=== PATIENT | female | born 1990 | race Caucasian/White ===

== ENCOUNTER → 2017-12-21 12:02 | Outpatient (CLI) | payer OTHER, MEDICAID, SELFPAY ==
--- NOTE | 2017-12-21 13:22 | DI.CT.S_ITS ---
PROCEDURE: CT ABDOMEN PELVIS W CON INDICATIONS: NONINFECTIVE GASTROENTERITIS AND COLITIS TECHNIQUE: After the administration of oral and intravenous contrast, 5 mm thick sections acquired from the diaphragms to the symphysis. 5 mm thick coronal and sagittal reformats were performed. For radiation dose reduction, the following was used: automated exposure control, adjustment of mA and/or kV according to patient size. COMPARISON: [facility], CT, ABDOMEN/PELVIS WITH CONTRAST, 06/09/2017, 17:39. FINDINGS: Image quality: Excellent. ABDOMEN: Lung bases: Lung bases are clear. Heart size is normal. Solid organs: Liver is normal in size and enhancement. Gallbladder is within normal limits. Biliary system is non-dilated. Pancreas enhances normally. Spleen is normal in size and enhancement. No adrenal nodules. Kidneys are normal in size and enhancement, without hydronephrosis. Peritoneum and bowel: Stomach, small bowel, and colon loops are normal in caliber and wall thickness. No free fluid or air. Normal appendix. Nodes and vessels: No retroperitoneal or mesenteric adenopathy. Aorta and inferior vena cava are normal in caliber. Miscellaneous: No ventral hernias. PELVIS: Genitourinary: Bladder wall thickness is normal. Miscellaneous: No inguinal hernias or adenopathy. Bones: No suspicious bony lesions. No vertebral body compression fractures. IMPRESSION: 1. No acute process. 2. Normal appendix. Dictated by: Champ Lance M.D. on 12/21/2017 at 13:55 Approved by: Champ Lance M.D. on 12/21/2017 at 14:11
== END ==
PROVIDERS: PCP Family Medicine; Visit Provider Physician Assistant
DX: K52.9 Noninfective gastroenteritis and colitis, unspecified (principal)
CPT/HCPCS: 74177; Q9967

== ENCOUNTER → 2018-02-18 06:05 | Outpatient (CLI) | payer OTHER, MEDICAID, SELFPAY ==
[2018-03-19 08:42] LABS: Bacteria Urine None Seen; RBC Urine None Seen (0-5/HPF); WBC Urine None Seen (0-5/HPF)
[2018-03-19 08:44] LABS: Appearance Urine UA CLEAR; Bilirubin Urine UA NEGATIVE (NEGATIVE); Color Urine UA YELLOW; Glucose Urine UA NEGATIVE (Normal); Ketones Urine UA NEGATIVE (NEGATIVE); Leukocyte Esterase Urine UA NEGATIVE (NEGATIVE); Nitrite Urine UA Negative (Negative); Occult Blood Urine UA NEGATIVE (Negative); Protein Urine UA NEGATIVE (Negative); Urobilinogen Urine UA 0.2 E.U./dL (0.2)
[2018-03-19 09:46] LABS: Culture Indicated Urine Cult Not Indicated; Urine Comments Microscopic Normal
== END ==
PROVIDERS: PCP Family Medicine; Visit Provider Family Medicine
DX: R10.9 Unspecified abdominal pain (principal); R19.7 Diarrhea, unspecified
CPT/HCPCS: 81001; 87015; 87045; 87177; 87427; 87899

== ENCOUNTER → 2018-03-23 08:37 | Outpatient (CLI) | payer OTHER, MEDICAID, SELFPAY ==
[2018-03-23 09:15] LABS: Appearance Urine UA CLEAR; Bilirubin Urine UA NEGATIVE (NEGATIVE); Color Urine UA YELLOW; Glucose Urine UA NEGATIVE (Normal); Ketones Urine UA NEGATIVE (NEGATIVE); Leukocyte Esterase Urine UA TRACE (NEGATIVE); Nitrite Urine UA Negative (Negative); Occult Blood Urine UA NEGATIVE (Negative); Protein Urine UA NEGATIVE (Negative); Urobilinogen Urine UA 0.2 E.U./dL (0.2)
[2018-03-23 09:16] LABS: Add Manual Diff / Slide Review NO; Basophils Percent Auto 0.8 % (0-2); Eosinophils Percent Auto 1.4 % (2-4); Hematocrit 39.2 % (36-46); Hemoglobin 13.7 g/dL (12.0-16.0); Mean Corpuscular HGB Conc 34.8 % (30-36); Mean Corpuscular Hemoglobin 31.4 PG (26-34); Monocytes Percent Auto 6.9 % (3-14); Neutrophils Absolute Auto 5500 /uL (3000-5900); Neutrophils Percent Auto 64.9 % (50-75); Platelet Count 178 X10^3/uL (150-400); Red Blood Cell Count 4.36 X10^6/uL (4.0-5.2); White Blood Cell Count 8.4 X10^3/uL (4.5-11.0)
[2018-03-23 09:20] LABS: Bacteria Urine None Seen; RBC Urine None Seen (0-5/HPF)
[2018-03-23 09:21] LABS: WBC Urine 0-1/HPF (0-5/HPF)
[2018-03-23 09:22] LABS: Culture Indicated Urine Cult Not Indicated
[2018-03-23 09:38] LABS: Alanine Aminotransferase 22 IU/L (9-52); Albumin 4.6 g/dL (3.5-5.0); Albumin Globulin Ratio 1.5 (1.0-2.8); Alkaline Phosphatase 94 U/L (38-126); Amylase 127 U/L (30-110); Aspartate Aminotransferase 27 IU/L (14-36); BUN Creatinine Ratio 18.8 (6-22); Bilirubin Total 0.6 mg/dL (0.2-1.3); Blood Urea Nitrogen 15 mg/dL (7-17); Calcium 9.5 mg/dL (8.4-10.2); Carbon Dioxide 29 mmol/L (22-32); Chloride 103 mmol/L (98-107); Cholesterol 149 mg/dL (140-199); Estimated Glomerular Filt Rate > 60.0 mL/min (>60); Globulin 3.1 g/dL (1.7-4.1); Glucose 90 mg/dL (70-100); HDL Cholesterol 84 mg/dL (40-60); HEMOLYSIS < 15 (0-50); LDL Cholesterol Calculated 54 mg/dL (<100); Lipase 61 U/L (23-300); Sodium 142 mmol/L (137-145); Total Protein 7.7 g/dL (6.3-8.2); Triglycerides 56 mg/dL (35-150)
[2018-03-23 10:25] LABS: Thyroid Stimulating Hormone 1.05 uIU/mL (0.47-4.68)
== END ==
PROVIDERS: PCP Family Medicine; Visit Provider Family Medicine
DX: R10.9 Unspecified abdominal pain (principal); R19.7 Diarrhea, unspecified
CPT/HCPCS: 80053; 80061; 81003; 81015; 82150; 83690; 84443; 85025

== ENCOUNTER → 2018-03-25 16:58 | Outpatient (CLI) | payer OTHER, MEDICAID, SELFPAY | PROVIDERS: PCP Family Medicine; Visit Provider Family Medicine | DX: Z51.81 Encounter for therapeutic drug level monitoring (principal) ==

== ENCOUNTER → 2018-07-06 07:45 | Outpatient (CLI) | payer OTHER, MEDICAID, SELFPAY ==
[2018-07-06 10:38] LABS: Adenovirus F 40/41 Not Detected (Not Detect); Astrovirus Not Detected (Not Detect); Campylobacter Not Detected (Not Detect); Clostridium difficile toxin AB Not Detected (Not Detect); Cryptosporidium Not Detected (Not Detect); Cyclospora cayetanensis Not Detected (Not Detect); Entamoeba histolytica Not Detected (Not Detect); Enteroaggregative E.coli Not Detected (Not Detect); Enteropathogenic E.coli Not Detected (Not Detect); Enterotoxigenic E.coli It/st Not Detected (Not Detect); Giardia lamblia Not Detected (Not Detect); Norovirus GI/GII Not Detected (Not Detect); Plesiomonsa shigelloides Not Detected (Not Detect); Rotavirus A Not Detected (Not Detect); Salmonella Not Detected (Not Detect); Sapovirus Not Detected (Not Detect); Shiga-like toxin-prod E.coli Not Detected (Not Detect); Shigella/Enteroinvasive E.coli Not Detected (Not Detect); Vibrio Not Detected (Not Detect); Vibrio cholerae Not Detected (Not Detect); Yersinia enterocolitica Not Detected (Not Detect)
== END ==
PROVIDERS: Family Provider Family Medicine; PCP Family Medicine; Visit Provider Physician Assistant Medical
DX: R19.4 Change in bowel habit (principal); R10.84 Generalized abdominal pain
CPT/HCPCS: 82710; 87205; 87507

== ENCOUNTER → 2018-10-17 14:16 | Outpatient (CLI) | payer OTHER, MEDICAID, SELFPAY ==
[2018-10-17 14:55] LABS: Influenza A and B by PCR Rapid Negative (Negative)
== END ==
PROVIDERS: Family Provider Family Medicine; PCP Family Medicine; Visit Provider Physician Assistant
DX: R68.89 Other general symptoms and signs (principal)
CPT/HCPCS: 87400

== ENCOUNTER → 2018-10-17 15:25 | Outpatient (CLI) | payer OTHER, MEDICAID, SELFPAY ==
--- NOTE | 2018-10-17 15:26 | DI.RAD.S_ITS ---
PROCEDURE: XR CHEST 2V INDICATIONS: cough TECHNIQUE: 2 views of the chest were acquired. COMPARISON: [facility], , CHEST 2 VIEW, 06/05/2009, 17:38. FINDINGS: Surgical changes and devices: None. Lungs and pleura: Lungs are clear. No pleural effusions or pneumothorax. Mediastinum: Mediastinal contours are normal. Heart size is normal. Bones and chest wall: No suspicious bony abnormalities. Soft tissues appear unremarkable. IMPRESSION: No acute cardiopulmonary pathology. Dictated by: Good Byrd M.D. on 10/17/2018 at 15:38 Approved by: Good Byrd M.D. on 10/17/2018 at 15:38
== END ==
PROVIDERS: PCP Family Medicine; Visit Provider Physician Assistant
DX: R05 Cough (principal)
CPT/HCPCS: 71046; 87400

== ENCOUNTER 2018-11-10 00:59 | Emergency (ER) | payer OTHER, MEDICAID, SELFPAY ==
[2018-11-10 01:12] VITALS: BP 109/84; PULSE 70; TEMP 37.3; O2SAT 98; BMI 22.4
--- NOTE | 2018-11-10 01:13 | ED_ITS ---
HPI - Abdominal Pain General Chief Complaint: Abdominal Pain Stated Complaint: LEFT ABD PAIN TODAY Time Seen by Provider: 11/10/18 01:12 Source: patient Mode of arrival: ambulatory Limitations: no limitations History of Present Illness HPI narrative: Patient is a 28-year-old female with left lower quadrant abdominal pain. She states that is been gradually worsening over the past several hours. She states she is currently have with her menstrual cycle. She states she has had ovarian cysts in the past and this feels very similar to her prior ovarian cyst however ?deeper? she denies any urinary symptoms. Has implanon in place for prevention. Has never had an STD before. States he is not concerned about STDs. Has not tried anything for symptoms prior to arrival patient also states that she has had diarrhea. This does not appear to be new. She states that she has had diarrhea for many years now. Related Data Home Medications Medication Instructions Recorded Confirmed etonogestrel 68 mg subdermal SUBDERMAL each 12/14/17 11/02/18 implant albuterol sulfate HFA 90 2 puff INHALATION Q6H PRN 10/17/18 11/02/18 mcg/actuation aerosol inhaler Previous Rx's Medication Instructions Recorded ondansetron 4 mg disintegrating 4 mg PO Q6-8H PRN #30 tab 10/17/18 tablet methylphenidate 20 mg tablet 20 mg PO BID #60 tab 11/02/18 Allergies Allergy/AdvReac Type Severity Reaction Status Date / Time No Known Drug Allergies Allergy Verified 11/02/18 16:47 Review of Systems Constitutional Denies fever(s) Cardiovascular Denies chest pain and Denies dyspnea Respiratory Denies dyspnea Gastrointestinal Gastrointestinal: Reports abdominal pain, Reports diarrhea, Denies nausea and Denies vomiting Genitourinary Denies dysuria Comments: Vaginal bleeding on menstrual cycle Integumentary/Breasts Denies rash Hematologic/Lymphatic Denies easy bleeding and Denies easy bruising [facility] Medical History ADHD (Chronic 1994) Anxiety (Chronic ~2012) Chronic back pain (Chronic 12/2010) Generalized headaches (Chronic ~2008) Hearing loss (Chronic ~2008) PTSD (post-traumatic stress disorder) (Chronic 2013) Painful menstruation (Chronic 2016) Urinary incontinence (Chronic 10/2013) Elbow pain (Resolved 09/2011) GI bleed (Resolved ~03/2014) GI bleed (Resolved 03/2014) Ovarian cyst (Resolved 2015) Substance abuse (Resolved 2011) Urinary incontinence (Resolved ~10/2013) Social History Smoking Status: Current some day smoker quit status: considering quitting (vaping) alcohol intake: current (Occasional) substance use type: marijuana (last time smoked 2 weeks to help control nausea) Exam Initial Vital Signs Initial Vital Signs: Vital Signs Temperature 99.2 F 11/10/18 01:12 Pulse Rate 70 11/10/18 01:12 Blood Pressure 109/84 11/10/18 01:12 Pulse Oximetry 98 11/10/18 01:12 HENMT Head: normal to inspection and normocephalic Resp Effort & Inspection: normal respiratory effort Auscultation: clear to auscultation bilaterally Cardio Rate: regular rate Rhythm: regular rhythm GI Inspection: non-distended Palpation: soft, No firm and tender (Left lower quadrant/left adnexa) Bimanual Exam- Vagina & Uterus: normal bimanual exam and no cervical motion tenderness Bimanual Exam- Adnexa, other: adnexal tenderness on the left and no masses noted Skin Lesions: no lesions Rashes: no rashes Neuro General: alert, awake and oriented x3 Cognition: normal cognition Speech: speech normal Extrem General: normal to inspection and capillary refill normal Psych Appearance: grossly normal and well kempt Course Orders Ordered: ED Orders 11/10/18 01:20 US pelvic complete Stat Vital Signs - 8 hr 11/10/18 01:12 Temperature 99.2 F Pulse Rate 70 Blood Pressure 109/84 Pulse Oximetry 98 MDM - Abdominal Pain Lab Data Point of care testing: Point of Care Testing Test Results Negative Urine Dip Bedside Urine Glucose Negative Bedside Urine Bilirubin - Negative Bedside Urine Ketone - Negative Urine Specific [place] 1,025 Bedside Urine Occult Blood - Negative Bedside Urine pH 6.0 Bedside Urine Protein - Negative Bedside Urine Urobilinogen +/- 1mg Bedside Urine Nitrite - Negative Bedside Urine Leukocytes - Negative Esterase Imaging Data Pelvic ultrasound: Radiologist's impression: Visualized kidneys appear normal in echotexture and size without hydronephrosis. Uterus is in echotexture and size. Normal endometrial thickness. Multiple follicles within each ovary. Dominant left ovarian follicle measuring 1.3 cm. Bilateral ovaries are normal in size. For t he vas shifting within each ovary with normal waveforms. No pelvic free fluid. MDM Narrative Medical decision making narrative: Patient has left adnexal pain. Has no cervical motion tenderness. Low suspicion for PID. She has no ovarian cyst however does have a left-sided dominant follicle which could be causing her symptoms. She has no urinary tract infection. She is not concerned about STDs. test is negative. Will hold on a CT scan for now. Review of patient's medical history shows she has had painful menses in the past. Discussed use of Tylenol Motrin. She was given return precautions and follow-up instructions. Discharge Plan Departure Patient Disposition: Home Clinical Impression: Pelvic pain Instructions: DI for Pelvic Pain Activity Restrictions/Additional Instructions: I recommend that you take 6-800 mg of Motrin/ibuprofen every 8 hours and or 650 mg of Tylenol/ibuprofen every 4 to 6 hours as needed for pain. Contact her primary care doctor for follow-up. Return to the emergency department for any new symptoms Prescriptions: No Action etonogestrel [Nexplanon] 68 mg implant Subdermal RF: 0 albuterol sulfate 90 mcg/actuation HFA aerosol inhaler 2 puff INHALATION Q6H PRNRF: 0 ondansetron 4 mg tablet,disintegrating 4 mg PO Q6-8H PRN (Reason: nausea and vomiting) Qty: 30 RF: 0 methylphenidate HCl 20 mg tablet 20 mg PO BID Qty: 60 RF: 0 Referrals: Corrine Ku DO [Primary Care Provider] - Stand Alone Forms: Work Release Note
--- NOTE | 2018-11-10 01:20 | DI.US.S_ITS ---
PROCEDURE: US PELVIC COMPLETE INDICATIONS: LEFT ADNEXAL PAIN TECHNIQUE: Real-time scanning was performed of the pelvic organs, with image documentation. Additional endovaginal scanning was necessary due to incomplete visualization of the adnexal and endometrial structures by transabdominal scanning. COMPARISON: None. FINDINGS: Transabdominal scanning: Limited scanning through the kidneys shows no hydronephrosis. No pathologic free abdominal or pelvic fluid. Endovaginal scanning: Uterus: Uterus is normal in size at 6.4 x 3.1 x 4.6 cm. The endometrium measures 3.1 mm in combined thickness. Uterine echotexture is normal. Ovaries: Right ovary measures 3.2 x 2.5 x 1.8 cm. Right ovary is sonographically normal. Left ovary measures 3.0 x 2.5 x 2.5 cm. The left ovary is normal. Small functional follicles are noted in the ovaries bilaterally. Color Doppler evaluation demonstrates normal vascular flow in the ovaries bilaterally. IMPRESSION: 1. Uterus is sonographically normal 2. Adnexa are sonographically normal. Dictated by: Maricel Ulrich MD, PhD on 11/10/2018 at 7:57 Approved by: Maricel Ulrich MD, PhD on 11/10/2018 at 7:59
[2018-11-10] MEDS: KETOROLAC 60 MG/2 ML VIAL 30 MG IM (03:03)
[2018-11-10 03:09] VITALS: BP 106/68; PULSE 73; RESP 15; O2SAT 99
== END 2018-11-10 03:10 | disposition home or self-care (01) ==
PROVIDERS: Emergency Provider Emergency Medicine; PCP Family Medicine
DX: R10.2 Pelvic and perineal pain (principal); R19.7 Diarrhea, unspecified
CPT/HCPCS: 76830; 76856; 81003; 81025; 96372; 99282; 99283; J1885

== ENCOUNTER 2019-01-10 12:57 | Emergency (ER) | payer OTHER, MEDICAID, SELFPAY ==
[2019-01-10 13:00] VITALS: BP 125/71; PULSE 80; RESP 17; TEMP 36.7; O2SAT 98
--- NOTE | 2019-01-10 13:29 | PC.NURSE ---
pt ambulating to bathroom
[2019-01-10 13:46] VITALS: BP 125/71; PULSE 80; RESP 17; TEMP 36.7; O2SAT 98
[2019-01-10] MEDS: SODIUM CHLORIDE 0.9% 1,000 ML 1000 ML IV (13:56)
[2019-01-10] MEDS: ONDANSETRON 4 MG/2 ML INJ IV (13:56)
[2019-01-10 14:02] VITALS: BP 108/61; PULSE 82; RESP 16; O2SAT 97
--- NOTE | 2019-01-10 14:05 | ED.ABDPAIN ---
HPI - Abdominal Pain <[facility] - Last Filed: 01/10/19 18:30> General Chief Complaint: Abdominal Pain Stated Complaint: LOWER ABD PAIN Time Seen by Provider: 01/10/19 13:11 Source: patient Mode of arrival: ambulatory Limitations: no limitations History of Present Illness HPI narrative: The patient is a 28-year-old female current smoker ovarian cysts who presents with a chief complaint of lower abdominal pain. She states her pain has been and the lower left quadrant. She denies any fevers nausea vomiting or diarrhea. Hit in the abdomen by softball about a week ago. She states she had some bruising, but the pain remains. She has been taking Tylenol and Motrin for pain. She denies any possibility of sexually transmitted infections. She denies any dysuria urgency or frequency. She denies any abnormal vaginal discharge or vaginal bleeding. Related Data Home Medications Medication Instructions Recorded Confirmed etonogestrel 68 mg subdermal 1 ea SUBDERMAL .ONCE each 12/14/17 01/10/19 implant albuterol sulfate HFA 90 2 puff INHALATION Q6H PRN 10/17/18 01/10/19 mcg/actuation aerosol inhaler lithium carbonate 300 mg capsule 300 mg PO BEDTIME cap 01/10/19 01/10/19 Allergies Allergy/AdvReac Type Severity Reaction Status Date / Time No Known Drug Allergies Allergy Verified 11/02/18 16:47 Review of Systems <[facility] Last Filed: 01/10/19 18:30> Review of Systems GENERAL: Denies chills, fatigue, malaise, fever, sweats. HEENT: Denies sinus pain, ear pain, sore throat, difficulty swallowing, dizziness. RESPIRATORY: Denies dyspnea, cough, wheezing, hemoptysis, sputum. CARDIOVASCULAR: Denies chest pain, palpitations, orthopnea, edema, GASTROINTESTINAL: See HPI : Denies dysuria, frequency, incontinence, hematuria, urinary retention. MUSCULOSKELETAL: denies weakness, joint pain, or bony pain SKIN: Denies rash, skin lesions, or other NEUROLOGIC: Denies weakness, headache, numbness, change in speech, confusion, seizures, incoordination. PSYCHIATRIC: No concerning psychosocial issues. 12 point review of systems is negative except for those stated above PFSH <[facility] Last Filed: 01/10/19 18:30> Medical History ADHD (Chronic 1994) Anxiety (Chronic ~2012) Chronic back pain (Chronic 12/2010) Generalized headaches (Chronic ~2008) Hearing loss (Chronic ~2008) PTSD (post-traumatic stress disorder) (Chronic 2013) Painful menstruation (Chronic 2016) Urinary incontinence (Chronic 10/2013) Elbow pain (Resolved 09/2011) GI bleed (Resolved ~03/2014) GI bleed (Resolved 03/2014) Ovarian cyst (Resolved 2015) Substance abuse (Resolved 2011) Urinary incontinence (Resolved ~10/2013) Surgical History No history of previous surgery (Resolved) Family History (Updated 02/16/18 @ 13:58 by Clau Haq) Grandfather Cancer Grandfather Diabetes mellitus Father No problems noted. Mother Hypertension Mental health impairment Brother No problems noted. Sister No problems noted. Sister No problems noted. Sister No problems noted. Grandmother Hypertension Grandmother Mental health impairment Social History Smoking Status: Current some day smoker quit status: considering quitting (vaping) alcohol intake: current (Occasional) substance use type: marijuana (last time smoked 2 weeks to help control nausea) Family History Grandfather Cancer Grandfather Diabetes mellitus Father No problems noted. Mother Hypertension Mental health impairment Brother No problems noted. Sister No problems noted. Sister No problems noted. Sister No problems noted. Grandmother Hypertension Grandmother Mental health impairment Social History Smoking Status: Current some day smoker quit status: considering quitting (vaping) alcohol intake: current (Occasional) substance use type: marijuana (last time smoked 2 weeks to help control nausea) Exam <ÁNGELA Schneider - Last Filed: 01/10/19 18:30> Narrative Exam Narrative: GENERAL: This is a well-nourished, well-developed patient, lying on stretcher HEAD: Atraumatic. Normocephalic. No temporal or scalp tenderness. EYES: Pupils equal round and reactive. Extraocular motions intact. No scleral icterus. No injection or drainage. ENT: Nose without bleeding, purulent drainage or septal hematoma. Throat without erythema, tonsillar hypertrophy or exudate. Uvula midline. Airway patent. NECK: Trachea midline. No JVD or lymphadenopathy. Supple, nontender, no meningeal signs. CARDIOVASCULAR: Regular rate and rhythm without murmurs, gallops, or rubs. RESPIRATORY: Clear to auscultation. Breath sounds equal bilaterally. No wheezes, rales, or rhonchi. No cough. No increased respiratory effort. No accessory muscle use. GASTROINTESTINAL: Abdomen soft,, nondistended. No hepato-splenomegaly, or palpable masses. No guarding. Active bowel sounds. General pain to palpation right lower left lower quadrants. EXTREMITIES: No clubbing, cyanosis, or edema. No joint tenderness, effusion, or edema noted. BACK: Nontender without deformity or crepitance. No flank tenderness. NEURO: AOx3. SKIN: No rash or erythema. No erythema or ecchymosis noted on abdomen : No cervical motion tenderness on bimanual exam. 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 Initial Vital Signs Initial Vital Signs: Vital Signs Temperature 98.1 F 01/10/19 13:00 Pulse Rate 80 01/10/19 13:00 Respiratory Rate 17 01/10/19 13:00 Blood Pressure 125/71 01/10/19 13:00 Pulse Oximetry 98 01/10/19 13:00 <Kalpana Hankins MD - Last Filed: 01/10/19 19:11> Initial Vital Signs Initial Vital Signs: Vital Signs Temperature 98.1 F 01/10/19 13:00 Pulse Rate 80 01/10/19 13:00 Respiratory Rate 17 01/10/19 13:00 Blood Pressure 125/71 01/10/19 13:00 Pulse Oximetry 98 01/10/19 13:00 Course <ÁNGELA Schneider - Last Filed: 01/10/19 18:30> Orders Ordered: ED Orders 01/10/19 13:55 Amylase Stat Complete Blood Count AUTO DIFF Stat Comprehensive Metabolic Panel Stat Lipase Stat 01/10/19 14:20 US pelvic complete Stat Discontinued Medications Sodium Chloride (Normal Saline 0.9%) 1,000 mls @ 1,000 mls/hr IV BOLUS ONE Stop: 01/10/19 14:20 Last Infusion: 01/10/19 15:04 Dose: 0 mls/hr Admin: 01/10/19 13:56 Dose: 1,000 mls/hr Morphine Sulfate (Morphine) 4 mg IV NOW ONE Stop: 01/10/19 14:21 Last Admin: 01/10/19 15:04 Dose: 4 mg Ondansetron HCl (Zofran) 4 mg IV NOW ONE Stop: 01/10/19 13:22 Last Admin: 01/10/19 13:56 Dose: 4 mg Vital Signs - 8 hr 01/10/19 13:00 01/10/19 13:46 01/10/19 14:02 Temperature 98.1 F 98.1 F Pulse Rate 80 80 82 Respiratory Rate 17 17 16 Blood Pressure 125/71 125/71 Blood Pressure [Left Arm] Blood Pressure [Right Arm] 108/61 Pulse Oximetry 98 98 97 01/10/19 16:00 01/10/19 17:09 Temperature 98.9 F Pulse Rate 73 76 Respiratory Rate 16 Blood Pressure Blood Pressure [Left Arm] 113/73 Blood Pressure [Right Arm] 110/73 Pulse Oximetry 99 99 <Kalpana Hankins MD - Last Filed: 01/10/19 19:11> Orders Ordered: ED Orders 01/10/19 13:55 Amylase Stat Complete Blood Count AUTO DIFF Stat Comprehensive Metabolic Panel Stat Lipase Stat 01/10/19 14:20 US pelvic complete Stat Discontinued Medications Sodium Chloride (Normal Saline 0.9%) 1,000 mls @ 1,000 mls/hr IV BOLUS ONE Stop: 01/10/19 14:20 Last Infusion: 01/10/19 15:04 Dose: 0 mls/hr Admin: 01/10/19 13:56 Dose: 1,000 mls/hr Morphine Sulfate (Morphine) 4 mg IV NOW ONE Stop: 01/10/19 14:21 Last Admin: 01/10/19 15:04 Dose: 4 mg Ondansetron HCl (Zofran) 4 mg IV NOW ONE Stop: 01/10/19 13:22 Last Admin: 01/10/19 13:56 Dose: 4 mg Vital Signs - 8 hr 01/10/19 13:00 01/10/19 13:46 01/10/19 14:02 Temperature 98.1 F 98.1 F Pulse Rate 80 80 82 Respiratory Rate 17 17 16 Blood Pressure 125/71 125/71 Blood Pressure [Left Arm] Blood Pressure [Right Arm] 108/61 Pulse Oximetry 98 98 97 01/10/19 16:00 01/10/19 17:09 Temperature 98.9 F Pulse Rate 73 76 Respiratory Rate 16 Blood Pressure Blood Pressure [Left Arm] 113/73 Blood Pressure [Right Arm] 110/73 Pulse Oximetry 99 99 MDM - Abdominal Pain <LUCHO Schneider- - Last Filed: 01/10/19 18:30> Lab Data Result diagrams: 01/10/19 13:55 01/10/19 13:55 Lab Results 01/10/19 01/10/19 Range/Units 13:55 13:55 WBC 8.3 (4.5-11.0) X10^3/uL RBC 4.45 (4.0-5.2) X10^6/uL Hgb 13.7 (12.0-16.0) g/dL Hct 41.1 (36-46) % MCV 92.3 (80-100) fL MCH 30.8 (26-34) PG MCHC 33.4 (30-36) % RDW 12.9 (11.6-14.8) % Plt Count 179 (150-400) X10^3/uL Neut % (Auto) 66.2 (50-75) % Lymph % (Auto) 24.6 L (25-40) % Steele % (Auto) 6.0 (3-14) % Eos % (Auto) 2.3 (2-4) % Baso % (Auto) 0.9 (0-2) % Neut # (Auto) 5500 (9312-1230) /uL Lymph # (Auto) 2000 (1323-8953) /uL Steele # (Auto) 500 (0-900) /uL Eos # (Auto) 200 (0-450) /uL Baso # (Auto) 100 (0-100) /uL Sodium 139 (137-145) mmol/L Potassium 3.9 (3.4-5.1) mmol/L Chloride 105 (98-107) mmol/L Carbon Dioxide 26 (22-32) mmol/L BUN 10 (7-17) mg/dL Creatinine 0.80 (0.52-1.04) mg/dL Estimated GFR > 60.0 (>60) mL/min BUN/Creatinine Ratio 12.5 (6-22) Glucose 81 (70-100) mg/dL Calcium 9.2 (8.4-10.2) mg/dL Total Bilirubin 0.4 (0.2-1.3) mg/dL AST 19 (14-36) IU/L ALT 6 L (9-52) IU/L Alkaline Phosphatase 89 (38-126) U/L Total Protein 7.2 (6.3-8.2) g/dL Albumin 4.3 (3.5-5.0) g/dL Globulin 2.9 (1.7-4.1) g/dL Albumin/Globulin Ratio 1.5 (1.0-2.8) Amylase 144 H (30-110) U/L Lipase 84 (23-300) U/L Point of care testing: Point of Care Testing Test Results Negative Urine Dip Bedside Urine Glucose Negative Bedside Urine Bilirubin - Negative Bedside Urine Ketone - Negative Urine Specific Rotan 1.010 Bedside Urine Occult Blood - Negative Bedside Urine pH 7.0 Bedside Urine Protein - Negative Bedside Urine Urobilinogen - Negative Bedside Urine Nitrite - Negative Bedside Urine Leukocytes - Negative Esterase Imaging Data pelvic us: Radiologist's impression: [address] [address] Ultrasound Report Signed Patient: Nae Jha [facility]#: [id number] : 1990Acct:[id number] Age/Sex: 28 / FDate of Service: 01/10/19 Loc: ED Accession Number: [id number] Procedure: US pelvic complete Ordering Provider: Eladia Rodriguez PROCEDURE: US PELVIC COMPLETE INDICATIONS: PELVIC PAIN TECHNIQUE: Real-time scanning was performed of the pelvic organs, with image documentation. Additional endovaginal scanning was necessary due to incomplete visualization of the adnexal and endometrial structures by transabdominal scanning. COMPARISON: [facility], PELVIC COMPLETE, 11/10/2018, 1:45. FINDINGS: Transabdominal scanning: Limited scanning through the kidneys shows no hydronephrosis. No pathologic free abdominal or pelvic fluid. Endovaginal scanning: Uterus: Uterus is normal in size at 7.8 x 4.0 x 3.4 cm. The endometrium measures 5 mm in combined thickness. No focal myometrial lesions are identified. There is no fluid seen within the endometrium. Ovaries: The right ovary measures 5.6 x 5.3 x 3.7 cm and is noted to be moderately enlarged related to a simple appearing right ovarian cyst that measures up to approximately 4.5 cm. No internal septations are appreciated. The left ovary is normal in size without cystic or solid mass and measures 2.7 x 2.6 x 1.9 cm. IMPRESSION: 1. Moderate-sized right ovarian cyst. Followup imaging in 2-3 months is recommended. 2. Unremarkable uterus and left ovary. Dictated by: Shawn Fink M.D. on 01/10/2019 at 15:12 Approved by: Shawn Fink M.D. on 01/10/2019 at 15:14 [facility] Narrative Medical decision making narrative: The patient is a 28-year-old female who presents with chief complaint of lower abdominal pain. She was hit in the stomach by a softball, is concerned about bleeding. However he hemoglobin and hematocrit are within normal limits and stable from her previous drop. I expect if she had any bleeding, this would have dropped in the week since the softball incident. She also does not have an acute abdomen on exam. She has no cervical motion tenderness, ruling out pelvic inflammatory disease. She is noted to have a right ovarian cyst. I discussed at length follow up with primary care provider. Given that she does not have an acute abdomen and does not have an elevated white blood cell count, we elected to defer a CT scan at this point time. I discussed at length monitoring for worsening, inability keep down fluids, fever with abdominal pain or other acute concerns. Discussed coming back to the ER for any acute concerns. Patient has no questions or concerns upon discharge. <Kalpana Hankins MD - Last Filed: 01/10/19 19:11> Lab Data Lab Results 01/10/19 01/10/19 Range/Units 13:55 13:55 WBC 8.3 (4.5-11.0) X10^3/uL RBC 4.45 (4.0-5.2) X10^6/uL Hgb 13.7 (12.0-16.0) g/dL Hct 41.1 (36-46) % MCV 92.3 (80-100) fL MCH 30.8 (26-34) PG MCHC 33.4 (30-36) % RDW 12.9 (11.6-14.8) % Plt Count 179 (150-400) X10^3/uL Neut % (Auto) 66.2 (50-75) % Lymph % (Auto) 24.6 L (25-40) % Steele % (Auto) 6.0 (3-14) % Eos % (Auto) 2.3 (2-4) % Baso % (Auto) 0.9 (0-2) % Neut # (Auto) 5500 (2717-1139) /uL Lymph # (Auto) 2000 (1101-8592) /uL Steele # (Auto) 500 (0-900) /uL Eos # (Auto) 200 (0-450) /uL Baso # (Auto) 100 (0-100) /uL Sodium 139 (137-145) mmol/L Potassium 3.9 (3.4-5.1) mmol/L Chloride 105 (98-107) mmol/L Carbon Dioxide 26 (22-32) mmol/L BUN 10 (7-17) mg/dL Creatinine 0.80 (0.52-1.04) mg/dL Estimated GFR > 60.0 (>60) mL/min BUN/Creatinine Ratio 12.5 (6-22) Glucose 81 (70-100) mg/dL Calcium 9.2 (8.4-10.2) mg/dL Total Bilirubin 0.4 (0.2-1.3) mg/dL AST 19 (14-36) IU/L ALT 6 L (9-52) IU/L Alkaline Phosphatase 89 (38-126) U/L Total Protein 7.2 (6.3-8.2) g/dL Albumin 4.3 (3.5-5.0) g/dL Globulin 2.9 (1.7-4.1) g/dL Albumin/Globulin Ratio 1.5 (1.0-2.8) Amylase 144 H (30-110) U/L Lipase 84 (23-300) U/L Point of care testing: Point of Care Testing Test Results Negative Urine Dip Bedside Urine Glucose Negative Bedside Urine Bilirubin - Negative Bedside Urine Ketone - Negative Urine Specific Rotan 1.010 Bedside Urine Occult Blood - Negative Bedside Urine pH 7.0 Bedside Urine Protein - Negative Bedside Urine Urobilinogen - Negative Bedside Urine Nitrite - Negative Bedside Urine Leukocytes - Negative Esterase Discharge Plan Departure Patient Disposition: Home Clinical Impression: Right ovarian cyst Abdominal pain Qualifiers: Abdominal location: generalized Qualified Code(s): R10.84 - Generalized abdominal pain Discharge Date/Time: 01/10/19 17:22 Interventions: ED Discharge Assessment Last Done: 01/10/19 17:13 Instructions: DI for Ovarian Cyst, DI for Abdominal Pain-Adult Activity Restrictions/Additional Instructions: Your lab work came back well today. Your ultrasound shows a right-sided ovarian cyst. Please follow up with primary care provider soon as possible. Please come back to the emergency department for any acute concerns such as inability keep down food or fluids, fever with abdominal pain etc. Prescriptions: No Action etonogestrel [Nexplanon] 68 mg implant 1 ea Subdermal .ONCE RF: 0 albuterol sulfate 90 mcg/actuation HFA aerosol inhaler 2 puff INHALATION Q6H PRN (Reason: Shortness Of Breath) RF: 0 lithium carbonate 300 mg capsule 300 mg PO BEDTIME RF: 0 Referrals: Corrine Ku DO [Primary Care Provider] - Stand Alone Forms: School Release Note, Work Release Note
--- NOTE | 2019-01-10 14:09 | ED_ITS ---
HPI - Abdominal Pain <LADARIUS Schneider - Last Filed: 01/10/19 18:30> General Chief Complaint: Abdominal Pain Stated Complaint: LOWER ABD PAIN Time Seen by Provider: 01/10/19 13:11 Source: patient Mode of arrival: ambulatory Limitations: no limitations History of Present Illness HPI narrative: The patient is a 28-year-old female current smoker ovarian cysts who presents with a chief complaint of lower abdominal pain. She states her pain has been and the lower left quadrant. She denies any fevers nausea vomiting or diarrhea. Hit in the abdomen by softball about a week ago. She s tates she had some bruising, but the pain remains. She has been taking Tylenol and Motrin for pain. She denies any possibility of sexually transmitted infections. She denies any dysuria urgency or frequency. She denies any abnormal vaginal discharge or vaginal bleeding. Related Data Home Medications Medication Instructions Recorded Confirmed etonogestrel 68 mg subdermal 1 ea SUBDERMAL .ONCE each 12/14/17 01/10/19 implant albuterol sulfate HFA 90 2 puff INHALATION Q6H PRN 10/17/18 01/10/19 mcg/actuation aerosol inhaler lithium carbonate 300 mg capsule 300 mg PO BEDTIME cap 01/10/19 01/10/19 Allergies Allergy/AdvReac Type Severity Reaction Status Date / Time No Known Drug Allergies Allergy Verified 11/02/18 16:47 Review of Systems <LADARIUS Schneider - Last Filed: 01/10/19 18:30> Review of Systems GENERAL: Denies chills, fatigue, malaise, fever, sweats. HEENT: Denies sinus pain, ear pain, sore throat, difficulty swallowing, dizziness. RESPIRATORY: Denies dyspnea, cough, wheezing, hemoptysis, sputum. CARDIOVASCULAR: Denies chest pain, palpitations, orthopnea, edema, GASTROINTESTINAL: See HPI : Denies dysuria, frequency, incontinence, hematuria, urinary retention. MUSCULOSKELETAL: denies weakness, joint pain, or bony pain SKIN: Denies rash, skin lesions, or other NEUROLOGIC: Denies weakness, headache, numbness, change in speech, confusion, seizures, incoordination. PSYCHIATRIC: No concerning psychosocial issues. 12 point review of systems is negative except for those stated above PFSH <LADARIUS Schneider - Last Filed: 01/10/19 18:30> Medical History ADHD (Chronic 1994) Anxiety (Chronic ~2012) Chronic back pain (Chronic 12/2010) Generalized headaches (Chronic ~2008) Hearing loss (Chronic ~2008) PTSD (post-traumatic stress disorder) (Chronic 2013) Painful menstruation (Chronic 2016) Urinary incontinence (Chronic 10/2013) Elbow pain (Resolved 09/2011) GI bleed (Resolved ~03/2014) GI bleed (Resolved 03/2014) Ovarian cyst (Resolved 2015) Substance abuse (Resolved 2011) Urinary incontinence (Resolved ~10/2013) Surgical History No history of previous surgery (Resolved) Family History (Updated 02/16/18 @ 13:58 by Clau Haq) Grandfather Cancer Grandfather Diabetes mellitus Father No problems noted. Mother Hypertension Mental health impairment Brother No problems noted. Sister No problems noted. Sister No problems noted. Sister No problems noted. Grandmother Hypertension Grandmother Mental health impairment Social History Smoking Status: Current some day smoker quit status: considering quitting (vaping) alcohol intake: current (Occasional) substance use type: marijuana (last time smoked 2 weeks to help control nausea) Family History Grandfather Cancer Grandfather Diabetes mellitus Father No problems noted. Mother Hypertension Mental health impairment Brother No problems noted. Sister No problems noted. Sister No problems noted. Sister No problems noted. Grandmother Hypertension Grandmother Mental health impairment Social History Smoking Status: Current some day smoker quit status: considering quitting (vaping) alcohol intake: current (Occasional) substance use type: marijuana (last time smoked 2 weeks to help control nausea) Exam <ÁNGELA Schneider - Last Filed: 01/10/19 18:30> Narrative Exam Narrative: GENERAL: This is a well-nourished, well-developed patient, lying on stretcher HEAD: Atraumatic. Normocephalic. No temporal or scalp tenderness. EYES: Pupils equal round and reactive. Extraocular motions intact. No scleral icterus. No injection or drainage. ENT: Nose without bleeding, purulent drainage or septal hematoma. Throat without erythema, tonsillar hypertrophy or exudate. Uvula midline. Airway patent. NECK: Trachea midline. No JVD or lymphadenopathy. Supple, nontender, no meningeal signs. CARDIOVASCULAR: Regular rate and rhythm without murmurs, gallops, or rubs. RESPIRATORY: Clear to auscultation. Breath sounds equal bilaterally. No wheezes, rales, or rhonchi. No cough. No increased respiratory effort. No accessory muscle use. GASTROINTESTINAL: Abdomen soft,, nondistended. No hepato-splenomegaly, or palpable masses. No guarding. Active bowel sounds. General pain to palpation right lower left lower quadrants. EXTREMITIES: No clubbing, cyanosis, or edema. No joint tenderness, effusion, or edema noted. BACK: Nontender without deformity or crepitance. No flank tenderness. NEURO: AOx3. SKIN: No rash or erythema. No erythema or ecchymosis noted on abdomen : No cervical motion tenderness on bimanual exam. Done with Deepti Moon RN as vp security Initial Vital Signs Initial Vital Signs: Vital Signs Temperature 98.1 F 01/10/19 13:00 Pulse Rate 80 01/10/19 13:00 Respiratory Rate 17 01/10/19 13:00 Blood Pressure 125/71 01/10/19 13:00 Pulse Oximetry 98 01/10/19 13:00 <Kalpana Hankins MD - Last Filed: 01/10/19 19:11> Initial Vital Signs Initial Vital Signs: Vital Signs Temperature 98.1 F 01/10/19 13:00 Pulse Rate 80 01/10/19 13:00 Respiratory Rate 17 01/10/19 13:00 Blood Pressure 125/71 01/10/19 13:00 Pulse Oximetry 98 01/10/19 13:00 Course <ÁNGELA Schneider - Last Filed: 01/10/19 18:30> Orders Ordered: ED Orders 01/10/19 13:55 Amylase Stat Complete Blood Count AUTO DIFF Stat Comprehensive Metabolic Panel Stat Lipase Stat 01/10/19 14:20 US pelvic complete Stat Discontinued Medications Sodium Chloride (Normal Saline 0.9%) 1,000 mls @ 1,000 mls/hr IV BOLUS ONE Stop: 01/10/19 14:20 Last Infusion: 01/10/19 15:04 Dose: 0 mls/hr Admin: 01/10/19 13:56 Dose: 1,000 mls/hr Morphine Sulfate (Morphine) 4 mg IV NOW ONE Stop: 01/10/19 14:21 Last Admin: 01/10/19 15:04 Dose: 4 mg Ondansetron HCl (Zofran) 4 mg IV NOW ONE Stop: 01/10/19 13:22 Last Admin: 01/10/19 13:56 Dose: 4 mg Vital Signs - 8 hr 01/10/19 13:00 01/10/19 13:46 01/10/19 14:02 Temperature 98.1 F 98.1 F Pulse Rate 80 80 82 Respiratory Rate 17 17 16 Blood Pressure 125/71 125/71 Blood Pressure [Left Arm] Blood Pressure [Right Arm] 108/61 Pulse Oximetry 98 98 97 01/10/19 16:00 01/10/19 17:09 Temperature 98.9 F Pulse Rate 73 76 Respiratory Rate 16 Blood Pressure Blood Pressure [Left Arm] 113/73 Blood Pressure [Right Arm] 110/73 Pulse Oximetry 99 99 <Kalpana Hankins MD - Last Filed: 01/10/19 19:11> Orders Ordered: ED Orders 01/10/19 13:55 Amylase Stat Complete Blood Count AUTO DIFF Stat Comprehensive Metabolic Panel Stat Lipase Stat 01/10/19 14:20 US pelvic complete Stat Discontinued Medications Sodium Chloride (Normal Saline 0.9%) 1,000 mls @ 1,000 mls/hr IV BOLUS ONE Stop: 01/10/19 14:20 Last Infusion: 01/10/19 15:04 Dose: 0 mls/hr Admin: 01/10/19 13:56 Dose: 1,000 mls/hr Morphine Sulfate (Morphine) 4 mg IV NOW ONE Stop: 01/10/19 14:21 Last Admin: 01/10/19 15:04 Dose: 4 mg Ondansetron HCl (Zofran) 4 mg IV NOW ONE Stop: 01/10/19 13:22 Last Admin: 01/10/19 13:56 Dose: 4 mg Vital Signs - 8 hr 01/10/19 13:00 01/10/19 13:46 01/10/19 14:02 Temperature 98.1 F 98.1 F Pulse Rate 80 80 82 Respiratory Rate 17 17 16 Blood Pressure 125/71 125/71 Blood Pressure [Left Arm] Blood Pressure [Right Arm] 108/61 Pulse Oximetry 98 98 97 01/10/19 16:00 01/10/19 17:09 Temperature 98.9 F Pulse Rate 73 76 Respiratory Rate 16 Blood Pressure Blood Pressure [Left Arm] 113/73 Blood Pressure [Right Arm] 110/73 Pulse Oximetry 99 99 MDM - Abdominal Pain <Eladia Rodriguez, FORTUNE TELLER- - Last Filed: 01/10/19 18:30> Lab Data Result diagrams: 01/10/19 13:55 01/10/19 13:55 Lab Results 01/10/19 01/10/19 Range/Units 13:55 13:55 WBC 8.3 (4.5-11.0) X10^3/uL RBC 4.45 (4.0-5.2) X10^6/uL Hgb 13.7 (12.0-16.0) g/dL Hct 41.1 (36-46) % MCV 92.3 (80-100) fL MCH 30.8 (26-34) PG MCHC 33.4 (30-36) % RDW 12.9 (11.6-14.8) % Plt Count 179 (150-400) X10^3/uL Neut % (Auto) 66.2 (50-75) % Lymph % (Auto) 24.6 L (25-40) % Claiborne % (Auto) 6.0 (3-14) % Eos % (Auto) 2.3 (2-4) % Baso % (Auto) 0.9 (0-2) % Neut # (Auto) 5500 (7830-6767) /uL Lymph # (Auto) 2000 (8216-1161) /uL Claiborne # (Auto) 500 (0-900) /uL Eos # (Auto) 200 (0-450) /uL Baso # (Auto) 100 (0-100) /uL Sodium 139 (137-145) mmol/L Potassium 3.9 (3.4-5.1) mmol/L Chloride 105 (98-107) mmol/L Carbon Dioxide 26 (22-32) mmol/L BUN 10 (7-17) mg/dL Creatinine 0.80 (0.52-1.04) mg/dL Estimated GFR > 60.0 (>60) mL/min BUN/Creatinine Ratio 12.5 (6-22) Glucose 81 (70-100) mg/dL Calcium 9.2 (8.4-10.2) mg/dL Total Bilirubin 0.4 (0.2-1.3) mg/dL AST 19 (14-36) IU/L ALT 6 L (9-52) IU/L Alkaline Phosphatase 89 (38-126) U/L Total Protein 7.2 (6.3-8.2) g/dL Albumin 4.3 (3.5-5.0) g/dL Globulin 2.9 (1.7-4.1) g/dL Albumin/Globulin Ratio 1.5 (1.0-2.8) Amylase 144 H (30-110) U/L Lipase 84 (23-300) U/L Point of care testing: Point of Care Testing Test Results Negative Urine Dip Bedside Urine Glucose Negative Bedside Urine Bilirubin - Negative Bedside Urine Ketone - Negative Urine Specific Tuthill 1.010 Bedside Urine Occult Blood - Negative Bedside Urine pH 7.0 Bedside Urine Protein - Negative Bedside Urine Urobilinogen - Negative Bedside Urine Nitrite - Negative Bedside Urine Leukocytes - Negative Esterase Imaging Data pelvic us: Radiologist's impression: [address] [address] Ultrasound Report Signed Patient: Nae Jha DMR#: [id number] : 1990Acct:[id number] Age/Sex: 28 / FDate of Service: 01/10/19 Loc: ED Accession Number: [id number] Procedure: US pelvic complete Ordering Provider: Eladia Rodriguez FORTUNE TELLER- PROCEDURE: US PELVIC COMPLETE INDICATIONS: PELVIC PAIN TECHNIQUE: Real-time scanning was performed of the pelvic organs, with image documentation. Additional endovaginal scanning was necessary due to incomplete visualization of the adnexal and endometrial structures by transabdominal scanning. COMPARISON: [facility], PELVIC COMPLETE, 11/10/2018, 1:45. FINDINGS: Transabdominal scanning: Limited scanning through the kidneys shows no hydronep hrosis. No pathologic free abdominal or pelvic fluid. Endovaginal scanning: Uterus: Uterus is normal in size at 7.8 x 4.0 x 3.4 cm. The endometrium measures 5 mm in combined thickness. No focal myometrial lesions are identified. There is no fluid seen within the endometrium. Ovaries: The right ovary measures 5.6 x 5.3 x 3.7 cm and is noted to be moderately enlarged related to a simple appearing right ovarian cyst that measures up to approximately 4.5 cm. No internal septations are appreciated. The left ovary is normal in size without cystic or solid mass and measures 2.7 x 2.6 x 1.9 cm. IMPRESSION: 1. Moderate-sized right ovarian cyst. Followup imaging in 2-3 months is recommended. 2. Unremarkable uterus and left ovary. Dictated by: Shawn Fink M.D. on 01/10/2019 at 15:12 Approved by: Shawn Fink M.D. on 01/10/2019 at 15:14 MDM Narrative Medical decision making narrative: The patient is a 28-year-old female who presents with chief complaint of lower abdominal pain. She was hit in the stomach by a softball, is concerned about bleeding. However he hemoglobin and hematocrit are within normal limits and stable from her previous drop. I expect if she had any bleeding, this would have dropped in the week since the softball incident. She also does not have an acute abdomen on exam. She has no cervical motion tenderness, ruling out pelvic inflammatory disease. She is noted to have a right ovarian cyst. I discussed at length follow up with primary care provid er. Given that she does not have an acute abdomen and does not have an elevated white blood cell count, we elected to defer a CT scan at this point time. I discussed at length monitoring for worsening, inability keep down fluids, fever with abdominal pain or other acute concerns. Discussed coming back to the ER for any acute concerns. Patient has no questions or concerns upon discharge. <Kalpana Hankins MD - Last Filed: 01/10/19 19:11> Lab Data Lab Results 01/10/19 01/10/19 Range/Units 13:55 13:55 WBC 8.3 (4.5-11.0) X10^3/uL RBC 4.45 (4.0-5.2) X10^6/uL Hgb 13.7 (12.0-16.0) g/dL Hct 41.1 (36-46) % MCV 92.3 (80-100) fL MCH 30.8 (26-34) PG MCHC 33.4 (30-36) % RDW 12.9 (11.6-14.8) % Plt Count 179 (150-400) X10^3/uL Neut % (Auto) 66.2 (50-75) % Lymph % (Auto) 24.6 L (25-40) % Claiborne % (Auto) 6.0 (3-14) % Eos % (Auto) 2.3 (2-4) % Baso % (Auto) 0.9 (0-2) % Neut # (Auto) 5500 (0993-2225) /uL Lymph # (Auto) 2000 (7511-9890) /uL Claiborne # (Auto) 500 (0-900) /uL Eos # (Auto) 200 (0-450) /uL Baso # (Auto) 100 (0-100) /uL Sodium 139 (137-145) mmol/L Potassium 3.9 (3.4-5.1) mmol/L Chloride 105 (98-107) mmol/L Carbon Dioxide 26 (22-32) mmol/L BUN 10 (7-17) mg/dL Creatinine 0.80 (0.52-1.04) mg/dL Estimated GFR > 60.0 (>60) mL/min BUN/Creatinine Ratio 12.5 (6-22) Glucose 81 (70-100) mg/dL Calcium 9.2 (8.4-10.2) mg/dL Total Bilirubin 0.4 (0.2-1.3) mg/dL AST 19 (14-36) IU/L ALT 6 L (9-52) IU/L Alkaline Phosphatase 89 (38-126) U/L Total Protein 7.2 (6.3-8.2) g/dL Albumin 4.3 (3.5-5.0) g/dL Globulin 2.9 (1.7-4.1) g/dL Albumin/Globulin Ratio 1.5 (1.0-2.8) Amylase 144 H (30-110) U/L Lipase 84 (23-300) U/L Point of care testing: Point of Care Testing Test Results Negative Urine Dip Bedside Urine Glucose Negative Bedside Urine Bilirubin - Negative Bedside Urine Ketone - Negative Urine Specific Tuthill 1.010 Bedside Urine Occult Blood - Negative Bedside Urine pH 7.0 Bedside Urine Protein - Negative Bedside Urine Urobilinogen - Negative Bedside Urine Nitrite - Negative Bedside Urine Leukocytes - Negative Esterase Discharge Plan Departure Patient Disposition: Home Clinical Impression: Right ovarian cyst Abdominal pain Qualifiers: Abdominal location: generalized Qualified Code(s): R10.84 - Generalized abdominal pain Discharge Date/Time: 01/10/19 17:22 Interventions: ED Discharge Assessment Last Done: 01/10/19 17:13 Instructions: DI for Ovarian Cyst, DI for Abdominal Pain-Adult Activity Restrictions/Additional Instructions: Your lab work came back well today. Your ultrasound shows a right-sided ovarian cyst. Please follow up with primary care provider soon as possible. Please come back to the emergency department for any acute concerns such as inability keep down food or fluids, fever with abdominal pain etc. Prescriptions: No Action etonogestrel [Nexplanon] 68 mg implant 1 ea Subdermal .ONCE RF: 0 albuterol sulfate 90 mcg/actuation HFA aerosol inhaler 2 puff INHALATION Q6H PRN (Reason: Shortness Of Breath) RF: 0 lithium carbonate 300 mg capsule 300 mg PO BEDTIME RF: 0 Referrals: Corrine Ku DO [Primary Care Provider] - Stand Alone Forms: School Release Note, Work Release Note
[2019-01-10 14:11] LABS: Add Manual Diff / Slide Review NO; Basophils Absolute Auto 100 /uL (0-100); Basophils Percent Auto 0.9 % (0-2); Eosinophils Absolute Auto 200 /uL (0-450); Eosinophils Percent Auto 2.3 % (2-4); Hematocrit 41.1 % (36-46); Hemoglobin 13.7 g/dL (12.0-16.0); Lymphocytes Absolute Auto 2000 /uL (1100-4500); Lymphocytes Percent Auto 24.6 % (25-40); Mean Corpuscular HGB Conc 33.4 % (30-36); Mean Corpuscular Hemoglobin 30.8 PG (26-34); Mean Corpuscular Volume 92.3 fL (80-100); Monocytes Absolute Auto 500 /uL (0-900); Neutrophils Absolute Auto 5500 /uL (1500-7000); Neutrophils Percent Auto 66.2 % (50-75); Platelet Count 179 X10^3/uL (150-400); Red Blood Cell Count 4.45 X10^6/uL (4.0-5.2); Red Cell Distribution Width 12.9 % (11.6-14.8); White Blood Cell Count 8.3 X10^3/uL (4.5-11.0)
--- NOTE | 2019-01-10 14:20 | DI.US.S_ITS ---
PROCEDURE: US PELVIC COMPLETE INDICATIONS: PELVIC PAIN TECHNIQUE: Real-time scanning was performed of the pelvic organs, with image documentation. Additional endovaginal scanning was necessary due to incomplete visualization of the adnexal and endometrial structures by transabdominal scanning. COMPARISON: [facility], PELVIC COMPLETE, 11/10/2018, 1:45. FINDINGS: Transabdominal scanning: Limited scanning through the kidneys shows no hydronephrosis. No pathologic free abdominal or pelvic fluid. Endovaginal scanning: Uterus: Uterus is normal in size at 7.8 x 4.0 x 3.4 cm. The endometrium measures 5 mm in combined thickness. No focal myometrial lesions are identified. There is no fluid seen within the endometrium. Ovaries: The right ovary measures 5.6 x 5.3 x 3.7 cm and is noted to be moderately enlarged related to a simple appearing right ovarian cyst that measures up to approximately 4.5 cm. No internal septations are appreciated. The left ovary is normal in size without cystic or solid mass and measures 2.7 x 2.6 x 1.9 cm. IMPRESSION: 1. Moderate-sized right ovarian cyst. Followup imaging in 2-3 months is recommended. 2. Unremarkable uterus and left ovary. Dictated by: Shawn Fink M.D. on 01/10/2019 at 15:12 Approved by: Shawn Fink M.D. on 01/10/2019 at 15:14
[2019-01-10 14:31] LABS: Alanine Aminotransferase 6 IU/L (9-52); Albumin 4.3 g/dL (3.5-5.0); Albumin Globulin Ratio 1.5 (1.0-2.8); Alkaline Phosphatase 89 U/L (38-126); Amylase 144 U/L (30-110); Aspartate Aminotransferase 19 IU/L (14-36); BUN Creatinine Ratio 12.5 (6-22); Bilirubin Total 0.4 mg/dL (0.2-1.3); Blood Urea Nitrogen 10 mg/dL (7-17); Calcium 9.2 mg/dL (8.4-10.2); Carbon Dioxide 26 mmol/L (22-32); Chloride 105 mmol/L (98-107); Estimated Glomerular Filt Rate > 60.0 mL/min (>60); Globulin 2.9 g/dL (1.7-4.1); Glucose 81 mg/dL (70-100); HEMOLYSIS 23 (0-50); Lipase 84 U/L (23-300); Potassium 3.9 mmol/L (3.4-5.1); Sodium 139 mmol/L (137-145); Total Protein 7.2 g/dL (6.3-8.2)
[2019-01-10] MEDS: MORPHINE 4 MG/ML INJ IV (15:04)
--- NOTE | 2019-01-10 15:27 | PC.NURSE ---
PIV placed, blood specimens labelled after 2 identifier check with patient, conveyed to lab via tube system
[2019-01-10 16:00] VITALS: BP 110/73; PULSE 73; O2SAT 99
[2019-01-10 17:09] VITALS: BP 113/73; PULSE 76; RESP 16; TEMP 37.2; O2SAT 99
== END 2019-01-10 17:22 | disposition home or self-care (01) ==
PROVIDERS: Emergency Provider Nurse Practitioner Family; PCP Family Medicine
DX: N83.201 Unspecified ovarian cyst, right side (principal); R10.84 Generalized abdominal pain
CPT/HCPCS: 36591; 76830; 76856; 80053; 81003; 81025; 82150; 83690; 85025; 96361; 96374; 96375; 99283; 99284; J2270; J2405

== ENCOUNTER 2019-03-10 18:30 | Emergency (ER) | payer OTHER, MEDICAID, SELFPAY ==
[2019-03-10 18:46] VITALS: BP 147/92; PULSE 130; RESP 20; TEMP 36.6; O2SAT 99; BMI 25.9
[2019-03-10 21:42] VITALS: BP 116/72; PULSE 108; RESP 20; O2SAT 100
--- NOTE | 2019-03-10 22:02 | ED.HA ---
HPI - Headache General Chief Complaint: Headache Stated Complaint: CAN'T STOP THROWING UP HEADACHE Time Seen by Provider: 03/10/19 22:01 Source: patient Mode of arrival: ambulatory Limitations: no limitations History of Present Illness HPI Narrative: This is a 28-year-old female comes emergency department complaint headache, she also complains of pain on the left side of her neck her common left shoulder and left knee. Patient states that she has had some chronic pain with her leg. She states that she had had migraines or headaches when she was 18 but this 1 seems a little bit worse. Patient has not had fevers, no vision changes, she has been having nausea and vomiting. She denies any chest pain, shortness of breath, or other GI issues. She denies any abdominal pain. She denies any weakness or numbness in her extremities. Patient states she does take lithium and medication for ADHD. She states that she was dropped off by significant other. Related Data Home Medications Medication Instructions Recorded Confirmed etonogestrel 68 mg subdermal 1 ea SUBDERMAL .ONCE each 12/14/17 01/10/19 implant albuterol sulfate 90 mcg/actuation 2 puff INHALATION Q6H PRN 10/17/18 01/10/19 aerosol inhaler lithium carbonate 300 mg capsule 300 mg PO BEDTIME cap 01/10/19 01/10/19 Allergies Allergy/AdvReac Type Severity Reaction Status Date / Time No Known Drug Allergies Allergy Verified 03/10/19 18:49 PFSH Medical History ADHD (Chronic 1994) Anxiety (Chronic ~2012) Chronic back pain (Chronic 12/2010) Elbow pain (Resolved 09/2011) Generalized headaches (Chronic ~2008) GI bleed (Resolved ~03/2014) GI bleed (Resolved 03/2014) Hearing loss (Chronic ~2008) Ovarian cyst (Resolved 2015) Painful menstruation (Chronic 2016) PTSD (post-traumatic stress disorder) (Chronic 2013) Substance abuse (Resolved 2011) Urinary incontinence (Resolved ~10/2013) Urinary incontinence (Chronic 10/2013) Surgical History No history of previous surgery (Resolved) Family History Grandfather Cancer Grandfather Diabetes mellitus Father No problems noted. Mother Hypertension Mental health impairment Brother No problems noted. Sister No problems noted. Sister No problems noted. Sister No problems noted. Grandmother Hypertension Grandmother Mental health impairment Social History Smoking Status: Current some day smoker quit status: considering quitting (vaping) alcohol intake: current (Occasional) substance use type: marijuana (last time smoked 2 weeks to help control nausea) Family History Grandfather Cancer Grandfather Diabetes mellitus Father No problems noted. Mother Hypertension Mental health impairment Brother No problems noted. Sister No problems noted. Sister No problems noted. Sister No problems noted. Grandmother Hypertension Grandmother Mental health impairment Social History Smoking Status: Current some day smoker quit status: considering quitting (vaping) alcohol intake: current (Occasional) substance use type: marijuana (last time smoked 2 weeks to help control nausea) Exam Narrative Exam Narrative: GEN: well nourished, well appearing female, alert and oriented x 3, patient appears to be in mild distress. HEENT: Atraumatic, pupils are equal round reactive to light, extraocular movements are intact, nares are clear, TMs are clear with no fluid. Throat is clear without any exudates, erythema, tonsillar enlargement or uvular deviation, no facial droop. No meningeal signs. HEART: Regular rate and rhythm without murmur, clicks, rubs. No carotid bruits, pulses are equal in upper and lower extremities LUNGS:Lungs clear to auscultation, no wheezes, rales, crackles, chest moves symmetrically ABD:bowel sounds normal, soft, non-tender, no guarding, rebound, rigidity, no masses noted, no hepatosplenomegaly :No CVA tenderness MSCL: Non-tender, no muscle atrophy, muscles strength 5/5 upper and lower extremities, full range of motion, gait not tested NEURO:CN 2-12 intact, sensation normal, reflexes 2/4 upper and lower extremities. finger nose finger test normal SKIN: No rash. Initial Vital Signs Initial Vital Signs: Vital Signs Temperature 97.9 F 03/10/19 18:46 Pulse Rate 130 H 03/10/19 18:46 Respiratory Rate 20 03/10/19 18:46 Blood Pressure 147/92 H 03/10/19 18:46 Pulse Oximetry 99 03/10/19 18:46 Scores GCS Cascade coma scale eye opening: Spontaneous Cascade coma scale verbal response: Orientated Cascade coma scale motor response: Obey commands Giuliana coma scale total score: 15 Course Orders Ordered: ED Orders 03/10/19 22:08 CT head/brain wo con Stat Discontinued Medications Sodium Chloride (Normal Saline 0.9%) 1,000 mls @ 1,000 mls/hr IV BOLUS ONE Stop: 03/10/19 23:07 Last Infusion: 03/10/19 22:54 Dose: 0 mls/hr Documented by: Admin: 03/10/19 22:27 Dose: 1,000 mls/hr Documented by: JEYSON Metoclopramide HCl (Reglan) 10 mg IV NOW ONE Stop: 03/10/19 22:09 Last Admin: 03/10/19 22:27 Dose: 10 mg Documented by: JEYSON Vital Signs Vital signs: Vital Signs - 8 hr 03/10/19 18:46 03/10/19 21:42 Temperature 97.9 F Pulse Rate 130 H 108 H Respiratory Rate 20 20 Blood Pressure 147/92 H Blood Pressure [Left Arm] 116/72 Pulse Oximetry 99 100 MDM - Headache Lab Data Labs: Point of Care Testing Test Results Negative Urine Dip Bedside Urine Glucose Negative Bedside Urine Bilirubin - Negative Bedside Urine Ketone - Negative Urine Specific Faber 1.020 Bedside Urine Occult Blood +++ Bedside Urine pH 5.0 Bedside Urine Protein +/- 15 Bedside Urine Urobilinogen - Negative Bedside Urine Nitrite - Negative Bedside Urine Leukocytes - Negative Esterase Imaging Data CT scan - head: Radiologist's impression: No acute intracranial findings. [facility] Narrative Medical decision making narrative: Patient states that a family member just got in a motor vehicle accident and she has to leave immediately. Initial head CT read by myself is negative but there is not a formal read. Patient's vital signs have been improving. I let the patient know that I would contact her if there were any changes to her head CT that I did not appreciate. Patient has a neurologically intact and able to ambulate other apartment without issue. She did not wait for any discharge instructions. Discharge Plan Departure Patient Disposition: Home Clinical Impression: Headache Discharge Date/Time: 03/10/19 22:55 Instructions: DI for Headache Activity Restrictions/Additional Instructions: Follow-up with yourr primary care provider in the next 2-3 days for recheck. Call for an appointment. Continue home medications as prescribed. Return to the emergency department for fevers got her 0.4 F, rapidly worsening symptoms, passing out, new vision changes, new weakness, difficulty speech, inability move her arms or legs or other new or concerning symptoms. Prescriptions: No Action etonogestrel [Nexplanon] 68 mg implant 1 ea Subdermal .ONCE RF: 0 albuterol sulfate 90 mcg/actuation HFA aerosol inhaler 2 puff INHALATION Q6H PRN (Reason: Shortness Of Breath) RF: 0 lithium carbonate 300 mg capsule 300 mg PO BEDTIME RF: 0 Referrals: Corrine Ku DO [Primary Care Provider] -
--- NOTE | 2019-03-10 22:08 | DI.CT.S_ITS ---
PROCEDURE: CT HEAD/BRAIN WO CON INDICATIONS: headache, remote history of migraines TECHNIQUE: Noncontrast 4.5 mm thick angled axial sections acquired from the foramen magnum to the vertex, with coronal and sagittal reformats. For radiation dose reduction, the following was used: automated exposure control, adjustment of mA and/or kV according to patient size. COMPARISON: None. FINDINGS: Image quality: Diagnostic, with note made of motion artifact. CSF spaces: Basal cisterns are patent. No extra-axial fluid collections. Ventricles are normal in size and shape. Brain: No midline shift. No intracranial masses or hemorrhage. Man-white matter interface is normal. Skull and face: Calvarium and visualized facial bones are intact, without suspicious lesions. Sinuses: Visualized sinuses and mastoids are clear. IMPRESSION: Normal intracranial study. No acute intracranial hemorrhage. No masses or mass effect. Stable from prior. Note: No significant discrepancy from the preliminary report. Dictated by: Kevin García M.D. on 03/11/2019 at 8:27 Approved by: Kevin García M.D. on 03/11/2019 at 8:28
[2019-03-10] MEDS: SODIUM CHLORIDE 0.9% 1,000 ML 1000 ML IV (22:27)
[2019-03-10] MEDS: METOCLOPRAMIDE 10 MG/2 ML INJ IV (22:27)
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
== END 2019-03-10 22:55 | disposition home or self-care (01) ==
PROVIDERS: Emergency Provider Emergency Medicine; PCP Family Medicine
DX: R51 Headache (principal)
CPT/HCPCS: 36591; 70450; 81003; 81025; 96374; 99283; 99284; J2765

== ENCOUNTER 2019-10-30 19:49 | Emergency (ER) | payer OTHER, MEDICAID, SELFPAY ==
[2019-10-30 20:04] VITALS: BP 121/73; PULSE 128; RESP 18; TEMP 36.6; O2SAT 97; BMI 27.3
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
[2019-10-30] MEDS: LIDO 1%/SOD BICARB 8.4% (10ML) 10 ML SYRINGE INJ (21:22)
[2019-10-30] MEDS: ONDANSETRON 4 MG ODT PREPACK 1 BOTTLE MISC (21:23)
[2019-10-30] MEDS: cephALEXin 250 MG PREPACK 1 BOTTLE MISC (21:25)
[2019-10-30] MEDS: TET,DIPH,PERTUSS(ACELL),VAC/PF 0.5 ML SYRINGE IM (21:26)
[2019-10-30 21:37] VITALS: BP 122/81
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
== END 2019-10-30 21:40 | disposition home or self-care (01) ==
PROVIDERS: Emergency Provider Emergency Medicine
DX: S06.0X0A Concussion without loss of consciousness, initial encounter (principal); S02.2XXA Fracture of nasal bones, initial encounter for closed fracture; S51.019A Laceration without foreign body of unspecified elbow, initial encounter; V19.40XA Pedal cycle driver injured in collision with unspecified motor vehicles in traffic accident, initial encounter; Z23 Encounter for immunization
CPT/HCPCS: 12001; 70450; 70486; 71045; 72125; 81003; 81025; 90471; 99284; 90715

== ENCOUNTER → 2019-11-01 12:12 | Outpatient (CLI) | payer OTHER, MEDICAID, SELFPAY ==
--- NOTE | 2019-11-01 12:15 | DI.RAD.S_ITS ---
PROCEDURE: XR ELBOW LT MIN 3V INDICATIONS: left arm pain TECHNIQUE: 3 views of the elbow were acquired. COMPARISON: None. FINDINGS: Bones: No fractures or dislocations. No suspicious bony lesions. Soft tissues: No elbow joint effusion. No suspicious soft tissue calcifications. IMPRESSION: Left elbow without acute radiographic abnormalities. If there are persistent symptoms or clinical suspicion for pathology, then repeat radiographs or advanced imaging (CT, MRI or bone scan) should be considered for further evaluation. Dictated by: Vivek Villar M.D. on 11/01/2019 at 13:00 Approved by: Vivek Villar M.D. on 11/01/2019 at 13:00
--- NOTE | 2019-11-01 12:15 | DI.RAD.S_ITS ---
PROCEDURE: XR WRIST LT MIN 3V INDICATIONS: left arm pain TECHNIQUE: 3 views of the wrist were acquired. COMPARISON: [facility], , WRIST MINIMUM 3 VIEWS RIGHT, 12/30/2011, 0:49. FINDINGS: Bones: No fractures or dislocations. No suspicious bony lesions. Soft tissues: No suspicious soft tissue calcifications. IMPRESSION: Left wrist without acute radiographic abnormalities. If there are persistent symptoms or clinical suspicion for pathology, then repeat radiographs or advanced imaging (CT, MRI or bone scan) should be considered for further evaluation. Dictated by: Vivek Villar M.D. on 11/01/2019 at 12:59 Approved by: Vivek Villar M.D. on 11/01/2019 at 13:00
== END ==
PROVIDERS: PCP Family Medicine; Referring Provider Family Medicine; Visit Provider Family Medicine
DX: M79.602 Pain in left arm (principal)
CPT/HCPCS: 73080; 73110

== ENCOUNTER 2019-11-15 13:37 | Emergency (ER) | payer OTHER, MEDICAID, SELFPAY ==
[2019-11-15 13:40] VITALS: BP 138/93; PULSE 106; RESP 13; TEMP 37.1; O2SAT 98; BMI 25.6
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
[2019-11-15] MEDS: diphenhydrAMINE 50 MG/ML VIAL 25 MG IV (14:28)
[2019-11-15] MEDS: KETOROLAC 60 MG/2 ML VIAL 15 MG IV (14:29)
[2019-11-15] MEDS: METOCLOPRAMIDE 10 MG/2 ML INJ IV (14:29)
[2019-11-15] MEDS: LORazepam 2 MG/ML INJ 0.5 MG IV (14:29)
[2019-11-15] MEDS: SODIUM CHLORIDE 0.9% 1,000 ML 1000 ML IV (14:30)
[2019-11-15 14:47] LABS: Add Manual Diff / Slide Review NO; Basophils Absolute Auto 100 /uL (0-100); Basophils Percent Auto 0.9 % (0-2); Eosinophils Absolute Auto 100 /uL (0-450); Eosinophils Percent Auto 1.2 % (2-4); Hematocrit 42.3 % (36-46); Hemoglobin 14.6 g/dL (12.0-16.0); Lymphocytes Absolute Auto 1900 /uL (1100-4500); Lymphocytes Percent Auto 24.1 % (25-40); Mean Corpuscular HGB Conc 34.5 % (30-36); Mean Corpuscular Hemoglobin 31.3 PG (26-34); Mean Corpuscular Volume 90.8 fL (80-100); Monocytes Absolute Auto 500 /uL (0-900); Monocytes Percent Auto 5.9 % (3-14); Neutrophils Absolute Auto 5300 /uL (1500-7000); Neutrophils Percent Auto 67.9 % (50-75); Platelet Count 191 X10^3/uL (150-400); Red Blood Cell Count 4.66 X10^6/uL (4.0-5.2); Red Cell Distribution Width 12.6 % (11.6-14.8); White Blood Cell Count 7.9 X10^3/uL (4.5-11.0)
[2019-11-15 15:01] LABS: Alanine Aminotransferase 15 IU/L (<35); Albumin Globulin Ratio 1.4 (1.0-2.8); Alkaline Phosphatase 90 U/L (38-126); Aspartate Aminotransferase 34 IU/L (14-36); BUN Creatinine Ratio 21.2 (6-22); Bilirubin Total 1.3 mg/dL (0.2-1.3); Blood Urea Nitrogen 14 mg/dL (7-17); Calcium 9.4 mg/dL (8.4-10.2); Carbon Dioxide 23 mmol/L (22-32); Chloride 109 mmol/L (98-107); Estimated Glomerular Filt Rate > 60.0 mL/min (>60); Globulin 3.5 g/dL (1.7-4.1); Glucose 91 mg/dL (70-100); Sodium 138 mmol/L (137-145); Total Protein 8.5 g/dL (6.3-8.2)
[2019-11-15 15:09] LABS: HEMOLYSIS 145 (0-50); Potassium 4.9 mmol/L (3.4-5.1)
[2019-11-15 15:38] VITALS: BP 113/60; PULSE 70; RESP 16; O2SAT 98
[2019-11-15 16:53] VITALS: BP 98/62; PULSE 72; RESP 15; O2SAT 98
== END 2019-11-15 17:08 | disposition home or self-care (01) ==
PROVIDERS: Emergency Provider Emergency Medicine; PCP Family Medicine
DX: R07.81 Pleurodynia (principal)
CPT/HCPCS: 36415; 80053; 85025; 96361; 96374; 96375; 99284; J1200; J1885; J2060; J2765

== ENCOUNTER → 2020-06-27 09:52 | Outpatient (CLI) | payer OTHER, MEDICAID, SELFPAY ==
--- NOTE | 2020-06-27 09:54 | DI.RAD.S_ITS ---
PROCEDURE: XR CHEST 2V INDICATIONS: Left lung/chest pain TECHNIQUE: 2 views of the chest were acquired. COMPARISON: [facility], CR, XR CHEST 2V, 10/17/2018, 15:24. FINDINGS: Surgical changes and devices: None. Lungs and pleura: Lungs are clear. No pleural effusions or pneumothorax. Mediastinum: Mediastinal contours are normal. Heart size is normal. Bones and chest wall: No suspicious bony abnormalities. Soft tissues appear unremarkable. IMPRESSION: No acute cardiopulmonary disease. Dictated by: Jareth Bledsoe M.D. on 06/27/2020 at 10:54 Approved by: Jareth Bledsoe M.D. on 06/27/2020 at 10:55
== END ==
PROVIDERS: PCP Family Medicine; Referring Provider Family Medicine; Visit Provider Family Medicine
DX: R07.89 Other chest pain (principal)
CPT/HCPCS: 71046

== ENCOUNTER 2020-06-30 12:52 | Emergency (ER) | payer OTHER, MEDICAID, SELFPAY ==
[2020-06-30] VITALS (15 sets, daily range): BP systolic 85–113; BP diastolic 51–69; PULSE 68–92; RESP 14–30; TEMP 36.7; O2SAT 96–99; BMI 26.6
--- NOTE | 2020-06-30 13:43 | ED.NAVMDI ---
HPI - Nausea/Vomiting/Diarrhea <LATASHA Vargas - Last Filed: 06/30/20 20:42> General Chief complaint: Nausea/Vomiting/Diarrhea Stated complaint: Head hurts/vomitting Time Seen by Provider: 06/30/20 13:32 Source: patient Mode of arrival: Ambulatory Limitations: no limitations History of Present Illness HPI Narrative: This is a 29-year-old female, current vapor, who has past medical history significant for migraine headache and concussion, PTSD, anxiety, opioids use disorder presents to ED with chief complain of woke up with nausea and vomiting this morning with headache. Patient reports her headache is located in frontal head. Patient reports she had vomited about 7+ times with clear liquid and bile. Patient also reports productive clear mucousy cough for last 6 months and had recently chest x-ray done that was ordered by PCP. Patient denies known seasonal allergies but reports postnasal drips. Patient is concerned she was told several years ago had a nodule in her lung. Patient reports occasional short of breath but not at this time. She denies chest pain, abdominal pain, or back pain. Patient reports headache worsens with breathing in cold air and has photophobia. Patient also reports pain slightly increased with flexing her neck. Denies unusual rashes, fever, chills. Patient denies known exposure to Covid illness. Patient tried ibuprofen this morning but vomited up shortly after. LMP, she is currently on and denies chances for . Related Data Previous Rx's Medication Instructions Recorded acetaminophen 500 mg capsule 1,000 mg PO QID PRN #90 cap 11/01/19 ibuprofen 800 mg tablet 800 mg PO TID PRN #60 tab 11/01/19 norethindrone acetate 1.5 1 tab PO DAILY #63 tab 03/25/20 mg-ethinyl estradiol 30 mcg tablet quetiapine 50 mg tablet,extended See Rx Instructions .ROUTE 05/25/20 release 24 hr .COMPLEX #30 tab Allergies Allergy/AdvReac Type Severity Reaction Status Date / Time metoclopramide [From Reglan] AdvReac Intermediate restlessnes Verified 06/30/20 15:16 s Review of Systems <LATASHA Vargas - Last Filed: 06/30/20 20:42> Review of Systems Narrative: General: Denies fever, chills, fatigue, malaise, sweats. HEENT: See HPI Respiratory: Denies dyspnea, (+) chronic cough, wheezing, hemoptysis, sputum. Cardiovascular: Denies chest pain, palpitations, orthopnea, edema. Gastrointestinal: See HPI : Denies dysuria, frequency, incontinence, hematuria, urinary retention. Musculoskeletal: Denies weakness, joint pain or bony pain. Skin: Denies rash, skin lesions, or other. Neurologic: Denies weakness, (+) headache, numbness, change in speech, confusion, seizures, incoordination. Psychiatric: No concerning psychosocial issues. 12-point review of systems is negative except for those stated above. Patient History <LATASHA Vargas - Last Filed: 06/30/20 20:42> Medical History ADHD (1994) Anxiety (~2012) Bipolar disorder Chronic back pain (12/2010) Elbow pain (09/2011) Generalized headaches (~2008) GI bleed (03/2014) Hearing loss (~2008) Opioid use disorder Otitis externa Otitis externa Ovarian cyst (2015) Painful menstruation (2016) Pleurisy PTSD (post-traumatic stress disorder) (2013) Ulnar neuritis Urinary incontinence (10/2013) Surgical History No history of previous surgery Family History Grandfather Cancer Grandfather Diabetes mellitus Father No problems noted. Mother Hypertension Mental health impairment Brother No problems noted. Sister No problems noted. Sister No problems noted. Sister No problems noted. Grandmother Hypertension Grandmother Mental health impairment Social History Smoking Status: Current some day smoker quit status: considering quitting alcohol intake: current substance use type: marijuana Smoking Status: Current some day smoker tobacco type: vaping alcohol intake frequency: holidays/special occasions only Substance Use Type: marijuana and other Exam <LATASHA Vargas - Last Filed: 06/30/20 20:42> Narrative Exam Narrative: GEN: Alert, oriented x 3, well appearing and nourished, and moderate distress from headache and nausea, she is resting in dark room. Head: Normal cephalic, atraumatic. No scalp or temporal tenderness, palpable mass or rash. EYES: Pupils are equal, round, and reactive to light and accommodation. Extraocular muscles are intact bilaterally. There is no subconjunctival hemorrhage, exudate and sclera non-icteric. ENT: Hearing grossly intact. Nose without bleeding, purulent discharge or deviation. Facial sinuses nontender to palpate. Mucous membrane moist, no mucosal lesion. Throat without erythema, tonsillar hypertrophy or exudate. Uvula in midline, airway patent. Neck: Trachea in midline. No JVD, non-tender without lymphadenopathy. No masses or thyroid megaly. Supple, non-tender and no meningeal signs. CARDIAC: Normal regular rate and rhythm without murmurs, gallops, or rubs. No chest wall tenderness. No peripheral edema, cyanosis or pallor. Capillary refill is less than 2 seconds. RESPIRATORY: Lungs are clear to auscultate bilaterally. No cough, wheezes, rales, or rhonchi. No stridor, respiratory distress, increase work of breathing, or accessary muscle used. ABD: Abdomen soft, nontender and non-distended. No guarding or rebound tenderness to palpate. Bowel sounds are normal in all 4 quadrants. There is no palpable masses or organomegaly. EXT: Full painless ROM of all extremities with no loss of sensation, strength, effusion or edema. SKIN: Warm, dry, normal color for patient. No erythema, lesions or rash over visible areas. BACK: Nontender without deformity or crepitance. No flank tenderness. NEUROLOGICAL: Alert and oriented to place, time and person. Sensation and motor function intact bilaterally. No facial droops, dysphasia. PSYCHIATRIC: Good judgement and reason, without hallucinations, abnormal affect or abnormal behaviors during the examination. Patient is not suicidal. Initial Vital Signs Initial Vital Signs: Vital Signs Temperature 98.0 F 06/30/20 13:29 Pulse Rate 92 H 06/30/20 13:29 Respiratory Rate 14 06/30/20 13:29 Blood Pressure 108/69 06/30/20 13:29 Pulse Oximetry 97 06/30/20 13:29 <Concepcion Sequeira, - Last Filed: 07/02/20 06:58> Initial Vital Signs Initial Vital Signs: Vital Signs Temperature 98.0 F 06/30/20 13:29 Pulse Rate 92 H 06/30/20 13:29 Respiratory Rate 14 06/30/20 13:29 Blood Pressure 108/69 06/30/20 13:29 Pulse Oximetry 97 06/30/20 13:29 Scores <[facility] Last Filed: 06/30/20 20:42> GCS [place] coma scale eye opening: Spontaneous [place] coma scale verbal response: Orientated [place] coma scale motor response: Obey commands [place] coma scale total score: 15 qSOFA Altered Mental Status (GCS <15): No Respiratory rate greater than/equal to 22: No Systolic blood pressure less than or equal to 100: No qSOFA Total: 0 0-1 Not High Risk 1-3 High risk Course <[facility] Last Filed: 06/30/20 20:42> Orders Ordered: Discontinued Medications Diphenhydramine HCl (Diphenhydramine 50 Mg/Ml Vial) 25 mg IV NOW ONE Stop: 06/30/20 14:12 Last Admin: 06/30/20 14:24 Dose: 25 mg Documented by: PITA Diphenhydramine HCl (Diphenhydramine 50 Mg/Ml Vial) 25 mg IV NOW ONE Stop: 06/30/20 15:00 Last Admin: 06/30/20 15:03 Dose: 25 mg Documented by: PITA Sodium Chloride (Normal Saline 0.9%) 1,000 mls @ 1,000 mls/hr IV BOLUS ONE Stop: 06/30/20 15:10 Last Infusion: 06/30/20 16:15 Dose: 0 mls/hr Documented by: Admin: 06/30/20 14:31 Dose: 1,000 mls/hr Documented by: PITA Sodium Chloride (Normal Saline 0.9%) 500 mls @ 1,000 mls/hr IV BOLUS ONE Stop: 06/30/20 16:51 Last Infusion: 06/30/20 17:22 Dose: 0 mls/hr Documented by: Admin: 06/30/20 16:46 Dose: 1,000 mls/hr Documented by: KADE Ketorolac Tromethamine (Ketorolac 60 Mg/2 Ml Vial) 15 mg IV NOW ONE Stop: 06/30/20 14:12 Last Admin: 06/30/20 14:24 Dose: 15 mg Documented by: PITA Lorazepam (Lorazepam 2 Mg/Ml Inj) 0.5 mg IV NOW ONE Stop: 06/30/20 15:15 Last Admin: 06/30/20 15:40 Dose: 0.5 mg Documented by: KADE Metoclopramide HCl (Metoclopramide 10 Mg/2 Ml Inj) 10 mg IV NOW ONE Stop: 06/30/20 14:12 Last Admin: 06/30/20 14:24 Dose: 10 mg Documented by: PITA Ondansetron HCl (Ondansetron 4 Mg Odt) 4 mg SL NOW ONE Stop: 06/30/20 13:43 Last Admin: 06/30/20 13:51 Dose: 4 mg Documented by: PITA Reevaluation(s) Reevaluation #1: Patient reports Zofran sublingual medication causing more nausea at this time from the taste. IV access successfully established after several attempts. Medications to treat nausea and headache ordered with IV fluid to hydrate patient. Waiting for lab tests. Time: 14:15 Reevaluation #2: Primary RN informed patient is having possible reaction to Reglan. She is re-evaluated by myself and appears to be having an akathesia with jitteriness and mild restlessness. Additional Benadryl 25mg IV ordered. The patient is able to keep eyes open in lighted room and appears to be last photophobia experienced. Time: 15:00 Reevaluation #3: Patient reports restlessness symptoms improved a little but has not resolved. Headaches has improved as well. Will medicate patient with small dose of Ativan. Time: 15:15 Additional Reevaluation(s): 1620-patient arouse from sleep by verbal command and reports headache and restless symptoms much improved. She is feeling thirsty. Ice chips provided for p.o. challenge. Noted slight hypotensive as 90/51 with HR in 85, additional 500 ml of NS bolus ordered. If patient is able to tolerate ice chips, vital signs improve endplate without difficulty will work on dispo to home. 1720-patient reports headache and feeling restlessness resolved at this time. She was able to tolerate ice chips without vomiting. Vital signs improved. Vital Signs Vital signs: Vital Signs - 8 hr 06/30/20 13:29 06/30/20 15:04 06/30/20 15:05 Temperature 98.0 F Pulse Rate 92 H 91 H 90 Respiratory Rate 14 30 H 20 Blood Pressure 108/69 101/59 L Pulse Oximetry 97 96 06/30/20 15:15 06/30/20 15:30 06/30/20 15:45 Temperature Pulse Rate 85 77 76 Respiratory Rate 22 22 Blood Pressure 95/60 85/51 L 100/60 Pulse Oximetry 97 96 97 06/30/20 16:00 06/30/20 16:15 06/30/20 16:21 Temperature Pulse Rate 68 79 80 Respiratory Rate 21 21 25 H Blood Pressure 92/54 L 91/52 L 90/51 L Pulse Oximetry 97 98 97 06/30/20 16:30 06/30/20 16:45 06/30/20 17:00 Temperature Pulse Rate 69 72 72 Respiratory Rate 20 22 20 Blood Pressure 97/58 L 91/54 L 102/66 Pulse Oximetry 96 96 98 06/30/20 17:15 06/30/20 17:30 06/30/20 17:44 Temperature Pulse Rate 73 89 92 H Respiratory Rate 20 16 Blood Pressure 104/65 113/63 Pulse Oximetry 97 97 99 <Concepcion Sequeira, DO - Last Filed: 07/02/20 06:58> Orders Ordered: Discontinued Medications Diphenhydramine HCl (Diphenhydramine 50 Mg/Ml Vial) 25 mg IV NOW ONE Stop: 06/30/20 14:12 Last Admin: 06/30/20 14:24 Dose: 25 mg Documented by: PITA Diphenhydramine HCl (Diphenhydramine 50 Mg/Ml Vial) 25 mg IV NOW ONE Stop: 06/30/20 15:00 Last Admin: 06/30/20 15:03 Dose: 25 mg Documented by: PITA Sodium Chloride (Normal Saline 0.9%) 1,000 mls @ 1,000 mls/hr IV BOLUS ONE Stop: 06/30/20 15:10 Last Infusion: 06/30/20 16:15 Dose: 0 mls/hr Documented by: Admin: 06/30/20 14:31 Dose: 1,000 mls/hr Documented by: PITA Sodium Chloride (Normal Saline 0.9%) 500 mls @ 1,000 mls/hr IV BOLUS ONE Stop: 06/30/20 16:51 Last Infusion: 06/30/20 17:22 Dose: 0 mls/hr Documented by: Admin: 06/30/20 16:46 Dose: 1,000 mls/hr Documented by: KADE Ketorolac Tromethamine (Ketorolac 60 Mg/2 Ml Vial) 15 mg IV NOW ONE Stop: 06/30/20 14:12 Last Admin: 06/30/20 14:24 Dose: 15 mg Documented by: PITA Lorazepam (Lorazepam 2 Mg/Ml Inj) 0.5 mg IV NOW ONE Stop: 06/30/20 15:15 Last Admin: 06/30/20 15:40 Dose: 0.5 mg Documented by: KADE Metoclopramide HCl (Metoclopramide 10 Mg/2 Ml Inj) 10 mg IV NOW ONE Stop: 06/30/20 14:12 Last Admin: 06/30/20 14:24 Dose: 10 mg Documented by: PITA Ondansetron HCl (Ondansetron 4 Mg Odt) 4 mg SL NOW ONE Stop: 06/30/20 13:43 Last Admin: 06/30/20 13:51 Dose: 4 mg Documented by: PITA Vital Signs Vital signs: Vital Signs - 8 hr 06/30/20 13:29 06/30/20 15:04 06/30/20 15:05 Temperature 98.0 F Pulse Rate 92 H 91 H 90 Respiratory Rate 14 30 H 20 Blood Pressure 108/69 101/59 L Pulse Oximetry 97 96 06/30/20 15:15 06/30/20 15:30 06/30/20 15:45 Temperature Pulse Rate 85 77 76 Respiratory Rate 22 22 Blood Pressure 95/60 85/51 L 100/60 Pulse Oximetry 97 96 97 06/30/20 16:00 06/30/20 16:15 06/30/20 16:21 Temperature Pulse Rate 68 79 80 Respiratory Rate 21 21 25 H Blood Pressure 92/54 L 91/52 L 90/51 L Pulse Oximetry 97 98 97 06/30/20 16:30 06/30/20 16:45 06/30/20 17:00 Temperature Pulse Rate 69 72 72 Respiratory Rate 20 22 20 Blood Pressure 97/58 L 91/54 L 102/66 Pulse Oximetry 96 96 98 06/30/20 17:15 06/30/20 17:30 06/30/20 17:44 Temperature Pulse Rate 73 89 92 H Respiratory Rate 20 16 Blood Pressure 104/65 113/63 Pulse Oximetry 97 97 99 MDM - Nausea/Vomiting/Diarrhea <Ronal Balaji-RUSSELL LuiP - Last Filed: 06/30/20 20:42> Differential Diagnosis Differential diagnosis: Likely dehydration and other (Gastritis, migraine headache, viral illness, meningitis) Medical Records Attestation: I reviewed the patient's medical records. Lab Data Attestation: I reviewed the patient's lab results. Result diagrams: 06/30/20 13:55 06/30/20 13:55 Labs: Lab Results 06/30/20 06/30/20 06/30/20 Range/Units 13:25 13:25 13:55 WBC 5.1 (4.5-11.0) X10^3/uL RBC 4.52 (4.0-5.2) X10^6/uL Hgb 14.0 (12.0-16.0) g/dL Hct 40.7 (36-46) % MCV 90.0 (80-100) fL MCH 30.9 (26-34) PG MCHC 34.3 (30-36) % RDW 12.7 (11.6-14.8) % Plt Count 188 (150-400) X10^3/uL Neut % (Auto) 59.2 (50-75) % Lymph % (Auto) 33.7 (25-40) % [place] % (Auto) 4.5 (3-14) % Eos % (Auto) 2.0 (2-4) % Baso % (Auto) 0.6 (0-2) % Neut # (Auto) 3000 (4857-0597) /uL Lymph # (Auto) 1700 (5507-8936) /uL [place] # (Auto) 200 (0-900) /uL Eos # (Auto) 100 (0-450) /uL Baso # (Auto) 0 (0-100) /uL PT (10.1-12.7) SECONDS INR (0.9-1.3) APTT (26.4-36.2) SECONDS Sodium (137-145) mmol/L Potassium (3.4-5.1) mmol/L Chloride (98-107) mmol/L Carbon Dioxide (22-32) mmol/L BUN (7-17) mg/dL Creatinine (0.52-1.04) mg/dL Estimated GFR (>60) mL/min BUN/Creatinine Ratio (6-22) Glucose (70-100) mg/dL Calcium (8.4-10.2) mg/dL Total Bilirubin (0.2-1.3) mg/dL AST (14-36) IU/L ALT (<35) IU/L Alkaline Phosphatase (38-126) U/L Total Protein (6.3-8.2) g/dL Albumin (3.5-5.0) g/dL Globulin (1.7-4.1) g/dL Albumin/Globulin Ratio (1.0-2.8) Lipase (23-300) U/L COVID-19 PCR Negative (Negative) Influenza A (RT-PCR) Flu a negative (NEGATIVE) Influenza B (RT-PCR) Flu b negative (NEGATIVE) 06/30/20 06/30/20 Range/Units 13:55 13:55 WBC (4.5-11.0) X10^3/uL RBC (4.0-5.2) X10^6/uL Hgb (12.0-16.0) g/dL Hct (36-46) % MCV (80-100) fL MCH (26-34) PG MCHC (30-36) % RDW (11.6-14.8) % Plt Count (150-400) X10^3/uL Neut % (Auto) (50-75) % Lymph % (Auto) (25-40) % [place] % (Auto) (3-14) % Eos % (Auto) (2-4) % Baso % (Auto) (0-2) % Neut # (Auto) (0027-2455) /uL Lymph # (Auto) (5149-3482) /uL [place] # (Auto) (0-900) /uL Eos # (Auto) (0-450) /uL Baso # (Auto) (0-100) /uL PT 12.5 (10.1-12.7) SECONDS INR 1.1 (0.9-1.3) APTT 32 (26.4-36.2) SECONDS Sodium 140 (137-145) mmol/L Potassium 4.2 (3.4-5.1) mmol/L Chloride 109 H (98-107) mmol/L Carbon Dioxide 27 (22-32) mmol/L BUN 15 (7-17) mg/dL Creatinine 0.71 (0.52-1.04) mg/dL Estimated GFR > 60.0 (>60) mL/min BUN/Creatinine Ratio 21.1 (6-22) Glucose 96 (70-100) mg/dL Calcium 8.5 (8.4-10.2) mg/dL Total Bilirubin 0.4 (0.2-1.3) mg/dL AST 27 (14-36) IU/L ALT 14 (<35) IU/L Alkaline Phosphatase 76 (38-126) U/L Total Protein 7.2 (6.3-8.2) g/dL Albumin 4.4 (3.5-5.0) g/dL Globulin 2.8 (1.7-4.1) g/dL Albumin/Globulin Ratio 1.6 (1.0-2.8) Lipase 99 (23-300) U/L COVID-19 PCR (Negative) Influenza A (RT-PCR) (NEGATIVE) Influenza B (RT-PCR) (NEGATIVE) ECG Data Attestation: I personally reviewed and interpreted this ECG as follows: Prior ECG tracings: not available for review Interpretation: Normal sinus rhythm rate at 83. Normal [place]. [place] interval 176, QRS duration 82, QT/QTC 370/[address] changes MDM Narrative Medical decision making narrative: This is a 29-year-old female who presents to ED with chief complain of nausea and vomiting started when she woke up this morning with headache and photophobia. Patient has history of migraine headache in the past. Her neurological exam was normal. Patient reports headache slightly increases with flexing her neck but there is no nuchal rigidity. Patient does not appears to be toxic. Patient is afebrile. Patient has been having chronic cough for last 6 months and her primary care physician ordered chest x-ray few days ago which shows normal findings. Labs are assuring without leukocytosis. Unremarkable chemistry test with normal kidney function test and LFTs. Normal lipase. COVID test and influenza test were both negative. She is currently on menstruation. Physical exam on abdomen was normal without any tenderness or pain to palpate. EKG was sinus rhythm without acute ST changes. Patient was treated IV fluid, Zofran ODT before IV access was established, Toradol, Benadryl and Reglan. Patient had reaction to Reglan with restlessness and anxiety. She was given additional dose of Benadryl and Ativan which helped her symptoms. Patient reports her nausea, headache, restlessness or all resolved. She was able to tolerate ice chips without vomiting and was able to ambulate in stable gait before leaving ED. patient advised to have a good rest today in dark and quiet room. Return precautions were discussed with patient and she verbalized understanding in agreement with treatment plan. <Concepcion Sequeira, - Last Filed: 07/02/20 06:58> Lab Data Labs: Lab Results 06/30/20 06/30/20 06/30/20 Range/Units 13:25 13:25 13:55 WBC 5.1 (4.5-11.0) X10^3/uL RBC 4.52 (4.0-5.2) X10^6/uL Hgb 14.0 (12.0-16.0) g/dL Hct 40.7 (36-46) % MCV 90.0 (80-100) fL MCH 30.9 (26-34) PG MCHC 34.3 (30-36) % RDW 12.7 (11.6-14.8) % Plt Count 188 (150-400) X10^3/uL Neut % (Auto) 59.2 (50-75) % Lymph % (Auto) 33.7 (25-40) % [place] % (Auto) 4.5 (3-14) % Eos % (Auto) 2.0 (2-4) % Baso % (Auto) 0.6 (0-2) % Neut # (Auto) 3000 (2004-6474) /uL Lymph # (Auto) 1700 (7160-3775) /uL [place] # (Auto) 200 (0-900) /uL Eos # (Auto) 100 (0-450) /uL Baso # (Auto) 0 (0-100) /uL PT (10.1-12.7) SECONDS INR (0.9-1.3) APTT (26.4-36.2) SECONDS Sodium (137-145) mmol/L Potassium (3.4-5.1) mmol/L Chloride (98-107) mmol/L Carbon Dioxide (22-32) mmol/L BUN (7-17) mg/dL Creatinine (0.52-1.04) mg/dL Estimated GFR (>60) mL/min BUN/Creatinine Ratio (6-22) Glucose (70-100) mg/dL Calcium (8.4-10.2) mg/dL Total Bilirubin (0.2-1.3) mg/dL AST (14-36) IU/L ALT (<35) IU/L Alkaline Phosphatase (38-126) U/L Total Protein (6.3-8.2) g/dL Albumin (3.5-5.0) g/dL Globulin (1.7-4.1) g/dL Albumin/Globulin Ratio (1.0-2.8) Lipase (23-300) U/L COVID-19 PCR Negative (Negative) Influenza A (RT-PCR) Flu a negative (NEGATIVE) Influenza B (RT-PCR) Flu b negative (NEGATIVE) 06/30/20 06/30/20 Range/Units 13:55 13:55 WBC (4.5-11.0) X10^3/uL RBC (4.0-5.2) X10^6/uL Hgb (12.0-16.0) g/dL Hct (36-46) % MCV (80-100) fL MCH (26-34) PG MCHC (30-36) % RDW (11.6-14.8) % Plt Count (150-400) X10^3/uL Neut % (Auto) (50-75) % Lymph % (Auto) (25-40) % [place] % (Auto) (3-14) % Eos % (Auto) (2-4) % Baso % (Auto) (0-2) % Neut # (Auto) (2566-6474) /uL Lymph # (Auto) (4574-8905) /uL [place] # (Auto) (0-900) /uL Eos # (Auto) (0-450) /uL Baso # (Auto) (0-100) /uL PT 12.5 (10.1-12.7) SECONDS INR 1.1 (0.9-1.3) APTT 32 (26.4-36.2) SECONDS Sodium 140 (137-145) mmol/L Potassium 4.2 (3.4-5.1) mmol/L Chloride 109 H (98-107) mmol/L Carbon Dioxide 27 (22-32) mmol/L BUN 15 (7-17) mg/dL Creatinine 0.71 (0.52-1.04) mg/dL Estimated GFR > 60.0 (>60) mL/min BUN/Creatinine Ratio 21.1 (6-22) Glucose 96 (70-100) mg/dL Calcium 8.5 (8.4-10.2) mg/dL Total Bilirubin 0.4 (0.2-1.3) mg/dL AST 27 (14-36) IU/L ALT 14 (<35) IU/L Alkaline Phosphatase 76 (38-126) U/L Total Protein 7.2 (6.3-8.2) g/dL Albumin 4.4 (3.5-5.0) g/dL Globulin 2.8 (1.7-4.1) g/dL Albumin/Globulin Ratio 1.6 (1.0-2.8) Lipase 99 (23-300) U/L COVID-19 PCR (Negative) Influenza A (RT-PCR) (NEGATIVE) Influenza B (RT-PCR) (NEGATIVE) Discharge Plan Departure Patient Disposition: Home Clinical Impression: Headache Qualifiers: Headache type: unspecified Headache chronicity pattern: unspecified pattern Intractability: not intractable Qualified Code(s): R51.9 - Headache, unspecified Nausea & vomiting Qualifiers: Vomiting type: unspecified Vomiting Intractability: non-intractable Qualified Code(s): R11.2 - Nausea with vomiting, unspecified Instructions: DI for Vomiting -- Adult, DI for Headache Activity Restrictions/Additional Instructions: You have been diagnosed with [headache and nausea and vomiting. Labs are assuring. No signs of flu or covid infection. You were medicated with IV fluid, Zofran ODT, Toradol, Benadryl, Reglan. It appears to be you had a reaction to Reglan which was treated with additional Benadryl and Ativan. Her symptoms much improved after this. Your chest x-ray from few days ago with normal findings.]. What to do: *Take your medications as directed. Please take [id number] Tylenol and or Motrin as needed for discomfort. Please use Zofran as needed for nausea and hydrate adequately. *Follow up with your primary care provider in 2-3 days, call for an appointment. Let them know you were seen in the ED and that we asked you to be seen in follow up. *Return to ED if you have any new, worsening, or concerning symptoms, such as [fever, unusual rash, unusual behaviors, chest pain, breathing difficulty, unable to tolerate fluids, worsening pain, vision change, or any acute concerns. Prescriptions: No Action quetiapine 50 mg tablet extended release 24 hr See Rx Instructions .ROUTE .COMPLEX Qty: 30 RF: 1 norethindrone ac-eth estradiol [Loestrin 1.12/08 (21)] 1.5-30 mg-mcg tablet 1 tab PO DAILY Qty: 63 RF: 4 ibuprofen 800 mg tablet 800 mg PO TID PRN (Reason: pain) Qty: 60 RF: 1 acetaminophen 500 mg capsule 1,000 mg PO QID PRN (Reason: pain) Qty: 90 RF: 1 Referrals: Hunter Singleton DO [Primary Care Provider] - <Concepcion Sequeira DO - Last Filed: 07/02/20 06:58> [facility] [place] Attestation: I was immediately available in the department for consultation. Documentation has been reviewed. I agree with assessment and plan.
[2020-06-30] MEDS: ONDANSETRON 4 MG ODT SL (13:51)
[2020-06-30 14:06] LABS: Add Manual Diff / Slide Review NO; Basophils Absolute Auto 0 /uL (0-100); Basophils Percent Auto 0.6 % (0-2); Eosinophils Absolute Auto 100 /uL (0-450); Hematocrit 40.7 % (36-46); Lymphocytes Absolute Auto 1700 /uL (1100-4500); Lymphocytes Percent Auto 33.7 % (25-40); Mean Corpuscular HGB Conc 34.3 % (30-36); Mean Corpuscular Hemoglobin 30.9 PG (26-34); Monocytes Absolute Auto 200 /uL (0-900); Monocytes Percent Auto 4.5 % (3-14); Neutrophils Absolute Auto 3000 /uL (1500-7000); Neutrophils Percent Auto 59.2 % (50-75); Platelet Count 188 X10^3/uL (150-400); Red Blood Cell Count 4.52 X10^6/uL (4.0-5.2); Red Cell Distribution Width 12.7 % (11.6-14.8); White Blood Cell Count 5.1 X10^3/uL (4.5-11.0)
[2020-06-30 14:08] LABS: INR 1.1 (0.9-1.3); Prothrombin Time 12.5 SECONDS (10.1-12.7)
[2020-06-30 14:10] LABS: PTT Partial Thromboplastin Tim 32 SECONDS (26.4-36.2)
[2020-06-30 14:12] LABS: Alanine Aminotransferase 14 IU/L (<35); Albumin 4.4 g/dL (3.5-5.0); Albumin Globulin Ratio 1.6 (1.0-2.8); Alkaline Phosphatase 76 U/L (38-126); Aspartate Aminotransferase 27 IU/L (14-36); BUN Creatinine Ratio 21.1 (6-22); Bilirubin Total 0.4 mg/dL (0.2-1.3); Blood Urea Nitrogen 15 mg/dL (7-17); Calcium 8.5 mg/dL (8.4-10.2); Carbon Dioxide 27 mmol/L (22-32); Chloride 109 mmol/L (98-107); Estimated Glomerular Filt Rate > 60.0 mL/min (>60); Globulin 2.8 g/dL (1.7-4.1); Glucose 96 mg/dL (70-100); HEMOLYSIS < 15 (0-50); Lipase 99 U/L (23-300); Potassium 4.2 mmol/L (3.4-5.1); Sodium 140 mmol/L (137-145); Total Protein 7.2 g/dL (6.3-8.2)
[2020-06-30 14:17] LABS: Influenza A - CEPHEID Flu A NEGATIVE (NEGATIVE); Influenza B - CEPHEID Flu B NEGATIVE (NEGATIVE)
[2020-06-30] MEDS: diphenhydrAMINE 50 MG/ML VIAL 25 MG IV ×2 (14:24→15:03)
[2020-06-30] MEDS: KETOROLAC 60 MG/2 ML VIAL 15 MG IV (14:24)
[2020-06-30] MEDS: METOCLOPRAMIDE 10 MG/2 ML INJ IV (14:24)
[2020-06-30] MEDS: SODIUM CHLORIDE 0.9% 1,000 ML 1000 ML IV (14:31)
[2020-06-30 14:37] LABS: COVID19 -Nasal RAPID Negative (Negative)
[2020-06-30] MEDS: LORazepam 2 MG/ML INJ 0.5 MG IV (15:40)
[2020-06-30] MEDS: SODIUM CHLORIDE 0.9% 500 ML 1000 ML IV (16:46)
== END 2020-06-30 17:46 | disposition home or self-care (01) ==
PROVIDERS: Emergency Provider Nurse Practitioner Family; PCP Family Medicine
DX: R51.9 Headache, unspecified (principal); R11.2 Nausea with vomiting, unspecified
CPT/HCPCS: 80053; 83690; 85025; 85610; 85730; 87502; 87635; 93005; 96361; 96374; 96375; 96376; 99283; 99284; J1200; J1885; J2060; J2765

== ENCOUNTER → 2020-09-18 10:56 | Outpatient (CLI) | payer OTHER, MEDICAID, SELFPAY ==
[2020-09-18] MEDS: COVID-19 VACC, Ad26(JANSSEN)/PF 0.5 ML IM (11:18)
== END ==
PROVIDERS: PCP Family Medicine; Visit Provider Internal Medicine
DX: Z23 Encounter for immunization (principal)
CPT/HCPCS: 0031A; 91303

== ENCOUNTER 2020-09-20 13:25 | Emergency (ER) | payer OTHER, MEDICAID, SELFPAY ==
[2020-09-20 13:27] VITALS: BP 140/80; PULSE 94; RESP 14; TEMP 36.7; O2SAT 98
[2020-09-20] MEDS: ONDANSETRON 4 MG ODT SL (15:11)
[2020-09-20 15:23] LABS: Bacteria Urine None Seen; RBC Urine None Seen (0-5/HPF); WBC Urine None Seen (0-5/HPF)
[2020-09-20 15:33] LABS: COVID19 -Nasal RAPID Negative (Negative)
[2020-09-20 15:37] LABS: Amorphous Sediment Urine 1+; Culture Indicated Urine Cult Not Indicated; Mucus Urine 2+ (Negative)
[2020-09-20] MEDS: IBUPROFEN 400 MG TABLET PO (15:56)
[2020-09-20] MEDS: ACETAMINOPHEN 325 MG TABLET 650 MG PO (15:57)
[2020-09-20 16:14] VITALS: BP 136/80; PULSE 88; RESP 14; TEMP 36.4; O2SAT 100
--- NOTE | 2020-09-20 21:16 | ED_ITS ---
HPI - Recheck/Abnormal Lab/Rx <LATASHA Vargas - Last Filed: 09/20/20 21:28> General Chief Complaint: Recheck/Abnormal Lab/Rx Stated Complaint: covid shot on feeling bad Time Seen by Provider: 09/20/20 14:14 Source: patient Mode of arrival: Ambulatory Limitations: no limitations History of Present Illness HPI narrative: This is a 29-year-old female, who has past medical history with bipolar, allergies, digestive issues presents to ED with chief complain of not feeling well after COVID vaccination 2 days ago. Patient reports generalize body aches, headache, feeling fatigue, and severe chills for 1 day. Patient is here in emergency room since she was not able to see by primary care physician and she is requested to submit a doctor's note to work. Patient reports sore a rm where she received COVID injection which radiated to neck immediately. She was sent to home from work yesterday and she has been resting in bed. She had 1 episode of emesis when she tried to eat and drink this morning. 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 She is has known exposure to Covid illness but this was 6 months ago. She has some cough but thinks is due to allergy symptoms and postnasal drip and she states takes daily allergy medication. She denies chest pain, short of breath, known fever. LMP currently which started 4 days ago. Related Data Previous Rx's Medication Instructions Recorded acetaminophen 500 mg capsule 1,000 mg PO QID PRN #90 cap 11/01/19 ibuprofen 800 mg tablet 800 mg PO TID PRN #60 tab 11/01/19 norethindrone acetate 1.5 1 tab PO DAILY #63 tab 03/25/20 mg-ethinyl estradiol 30 mcg tablet fexofenadine 180 mg tablet 180 mg PO DAILY #30 tab 09/04/20 quetiapine 50 mg tablet,extended 100 mg PO BEDTIME #180 tab 09/13/20 release 24 hr ondansetron 4 mg PO Q8-12H PRN #7 tab 09/20/20 Allergies Allergy/AdvReac Type Severity Reaction Status Date / Time metoclopramide [From Reglan] AdvReac Intermediate restlessnes Verified 06/30/20 15:16 s Review of Systems <LATASHA Vargas - Last Filed: 09/20/20 21:28> Review of Systems Narrative: General: See HPI HEENT: Denies sinus pain, ear pain, sore throat, difficulty swallowing, dizziness. Respiratory: Denies dyspnea, cough, wheezing, hemoptysis, sputum. Cardiovascular: Denies chest pain, palpitations, orthopnea, edema. Gastrointestinal: See HPI : Denies dysuria, frequency, incontinence, hematuria, urinary retention. Musculoskeletal: See HPI Skin: Denies rash, skin lesions, or other. Neurologic: Denies weakness, (+) headache, numbness, change in speech, confusion, seizures, incoordination. Psychiatric: No concerning psychosocial issues. 12-point review of systems is negative except for those stated above. Patient History <LATASHA Vargas - Last Filed: 09/20/20 21:28> Medical History ADHD (1994) Anxiety (~2012) Bipolar disorder Chronic back pain (12/2010) Elbow pain (09/2011) Generalized headaches (~2008) GI bleed (03/2014) Hearing loss (~2008) Opioid use disorder Otitis externa Otitis externa Ovarian cyst (2015) Painful menstruation (2016) Pleurisy Postnasal drip PTSD (post-traumatic stress disorder) (2013) Ulnar neuritis Urinary incontinence (10/2013) Surgical History No history of previous surgery Family History Grandfather Cancer Grandfather Diabetes mellitus Father No problems noted. Mother Hypertension Mental health impairment Brother No problems noted. Sister No problems noted. Sister No problems noted. Sister No problems noted. Grandmother Hypertension Grandmother Mental health impairment Social History Smoking Status: Current some day smoker quit status: considering quitting alcohol intake: current substance use type: marijuana Smoking Status: Current some day smoker tobacco type: vaping alcohol intake frequency: holidays/special occasions only Substance Use Type: marijuana and other Exam <LATASHA Vargas - Last Filed: 09/20/20 21:28> Narrative Exam Narrative: GEN: Alert, oriented x 3, well nourished, but appears to be in discomfort and ill bundled in the blankets while wearing sweat assured with zhou on. Head: Normal cephalic, atraumatic. No scalp or temporal tenderness, palpable mass or rash. EYES: Pupils are equal, round, and reactive to light and accommodation. Extraocular muscles are intact bilaterally. There is no subconjunctival hemorrhage, exudate and sclera non-icteric. ENT: Bilateral auditory canals and tympanic membranes clear. Hearing grossly intact. Nose without bleeding, purulent discharge or deviation. Facial sinuses nontender to palpate. Mucous membrane moist, no mucosal lesion. Throat without erythema, tonsillar hypertrophy or exudate. Uvula in midline, airway patent. Neck: Trachea in midline. No JVD, non-tender without lymphadenopathy. No masses or thyroid megaly. Supple, non-tender and no meningeal signs. CARDIAC: Normal regular rate and rhythm without murmurs, gallops, or rubs. No chest wall tenderness. No peripheral edema, cyanosis or pallor. Capillary refill is less than 2 seconds. RESPIRATORY: Lungs are clear to auscultate bilaterally. No cough, wheezes, rales, or rhonchi. No stridor, respiratory distress, increase work of breathing, or accessary muscle used. ABD: Abdomen soft, nontender and non-distended. No guarding or rebound tenderness to palpate. Bowel sounds are normal in all 4 quadrants. There is no palpable masses or organomegaly. EXT: Full ROM of all extremities with no loss of sensation, strength, effusion or edema. Left deltoid region tender to palpate without redness, swelling or significant warmth to touch. SKIN: Warm, dry, normal color for patient. No erythema, lesions or rash over visible areas. BACK: Nontender without deformity or crepitance. No flank tenderness. NEUROLOGICAL: Alert and oriented to place, time and person. Sensation and motor function intact bilaterally. No facial droops, dysphasia. PSYCHIATRIC: Good judgement and reason, without hallucinations, abnormal affect or abnormal behaviors during the examination. Patient is not suicidal. Initial Vital Signs Initial Vital Signs: Vital Signs Temperature 98.1 F 09/20/20 13:27 Pulse Rate 94 H 09/20/20 13:27 Respiratory Rate 14 09/20/20 13:27 Blood Pressure 140/80 09/20/20 13:27 Pulse Oximetry 98 09/20/20 13:27 <Eladia Cespedes DO - Last Filed: 09/21/20 07:35> Initial Vital Signs Initial Vital Signs: Vital Signs Temperature 98.1 F 09/20/20 13:27 Pulse Rate 94 H 09/20/20 13:27 Respiratory Rate 14 09/20/20 13:27 Blood Pressure 140/80 09/20/20 13:27 Pulse Oximetry 98 09/20/20 13:27 Scores <LATASHA Vargas - Last Filed: 09/20/20 21:28> GCS Giuliana coma scale eye opening: Spontaneous [place] coma scale verbal response: Orientated [place] coma scale motor response: Obey commands [place] coma scale total score: 15 qSOFA Altered Mental Status (GCS <15): No Respiratory rate greater than/equal to 22: No Systolic blood pressure less than or equal to 100: No qSOFA Total: 0 0-1 Not High Risk 1-3 High risk Course <LATASHA Vargas - Last Filed: 09/20/20 21:28> Orders Ordered: Discontinued Medications Acetaminophen (Acetaminophen 325 Mg Tablet) 650 mg PO NOW ONE Stop: 09/20/20 15:32 Last Admin: 09/20/20 15:57 Dose: 650 mg Documented by: ILIA Ibuprofen (Ibuprofen 400 Mg Tablet) 400 mg PO NOW ONE Stop: 09/20/20 15:32 Last Admin: 09/20/20 15:56 Dose: 400 mg Documented by: ILIA Ondansetron HCl (Ondansetron 4 Mg Odt) 4 mg SL NOW ONE Stop: 09/20/20 15:05 Last Admin: 09/20/20 15:11 Dose: 4 mg Documented by: ILIA Vital Signs Vital signs: Vital Signs - 8 hr 09/20/20 13:27 09/20/20 16:14 Temperature 98.1 F 97.6 F Pulse Rate 94 H 88 Respiratory Rate 14 14 Blood Pressure 140/80 136/80 Pulse Oximetry 98 100 <Eladia Cespedes DO - Last Filed: 09/21/20 07:35> Orders Ordered: Discontinued Medications Acetaminophen (Acetaminophen 325 Mg Tablet) 650 mg PO NOW ONE Stop: 09/20/20 15:32 Last Admin: 09/20/20 15:57 Dose: 650 mg Documented by: ILIA Ibuprofen (Ibuprofen 400 Mg Tablet) 400 mg PO NOW ONE Stop: 09/20/20 15:32 Last Admin: 09/20/20 15:56 Dose: 400 mg Documented by: ILIA Ondansetron HCl (Ondansetron 4 Mg Odt) 4 mg SL NOW ONE Stop: 09/20/20 15:05 Last Admin: 09/20/20 15:11 Dose: 4 mg Documented by: ILIA Vital Signs Vital signs: Vital Signs - 8 hr 09/20/20 13:27 09/20/20 16:14 Temperature 98.1 F 97.6 F Pulse Rate 94 H 88 Respiratory Rate 14 14 Blood Pressure 140/80 136/80 Pulse Oximetry 98 100 MDM - Recheck/Abnormal Lab/Rx <LATASHA Vargas - Last Filed: 09/20/20 21:28> Differential Diagnosis Differential diagnosis: Likely other (COVID vaccination sensitivity, UTI, pyelonephritis, COVID infection) Medical Records Attestation: I reviewed the patient's medical records. Lab Data Labs: Lab Results 09/20/20 09/20/20 Range/Units 15:10 15:17 Urine RBC None seen (0-5/HPF) Urine WBC None seen (0-5/HPF) Amorphous Sediment 1+ Urine Bacteria None seen (None) Urine Mucus 2+ H (Negative) Ur Culture Indicated? Cult not indicated SARS-CoV-2 (PCR) Negative (Negative) Point of Care Testing Test Results Negative Urine Dip Bedside Urine Glucose Negative Bedside Urine Bilirubin - Negative Bedside Urine Ketone +++ 80 Urine Specific [place] 1.030 Bedside Urine Occult Blood - Negative Bedside Urine pH 5.5 Bedside Urine Protein +/- 15 Bedside Urine Urobilinogen - Negative Bedside Urine Nitrite - Negative Bedside Urine Leukocytes - Negative Esterase [facility] Narrative Medical decision making narrative: This is a 29 year female who presents to ED with generalize myalgia, headache, nausea with 1 episode of vomiting, feeling fatigue after she received COVID vaccination 2 days ago. Despite patient appears to be this comfortable, Physical exam unremarkable. Patient is afebrile in ED. lung sounds clear to auscultate in all lobes. UTI no indications for infection but shows 3+ ketones and concentrated urine with specific gravity 1.030. Urine test was negative. COVID test was negative. Patient was medicated with Zofran initially and she was able to tolerate liquid and Tylenol , Motrin which improved her symptoms. Patient discharged to home with work note and advised to hydrate well and take [id number] Tylenol and or Motrin as needed. Patient discharged to home with Zofran to use as needed to hydrate well. Return precautions discussed with patient and she verbalized understanding and agreement with the treatment plan. <Eladia Cespedes, DO - Last Filed: 09/21/20 07:35> Lab Data Labs: Lab Results 09/20/20 09/20/20 Range/Units 15:10 15:17 Urine RBC None seen (0-5/HPF) Urine WBC None seen (0-5/HPF) Amorphous Sediment 1+ Urine Bacteria None seen (None) Urine Mucus 2+ H (Negative) Ur Culture Indicated? Cult not indicated SARS-CoV-2 (PCR) Negative (Negative) Point of Care Testing Test Results Negative Urine Dip Bedside Urine Glucose Negative Bedside Urine Bilirubin - Negative Bedside Urine Ketone +++ 80 Urine Specific [place] 1.030 Bedside Urine Occult Blood - Negative Bedside Urine pH 5.5 Bedside Urine Protein +/- 15 Bedside Urine Urobilinogen - Negative Bedside Urine Nitrite - Negative Bedside Urine Leukocytes - Negative Esterase Discharge Plan Departure Patient Disposition: Home Clinical Impression: Myalgia after COVID-19 vaccination Instructions: DI for Dehydration -- Adult Activity Restrictions/Additional Instructions: You have been diagnosed with [generalize myalgia which is likely side effect from COVID injection and signs of mild dehydration per urine test. No signs of urinary tract infection, COVID test was negative]. What to do: *Take your medications as directed. Please use Zofran as needed for nausea and hydrate adequately and eat small food as tolerate. You can take [id number] Tylenol and or Motrin as needed for discomfort. Rest next 1-2 days. *Follow up with your primary care provider in 2-3 days, call for an appointment. Let them know you were seen in the ED and that we asked you to be seen in [facility]. *Return to ED if you have any new, worsening, or concerning symptoms, such as [worsening pain, high fever, unable to tolerate fluids, chest pain, breathing difficulty, or any acute concerns]. Prescriptions: New ondansetron 4 mg tablet,disintegrating 4 mg PO Q8-12H PRN (Reason: nausea and vomiting) Qty: 7 RF: 0 No Action quetiapine 50 mg tablet extended release 24 hr 100 mg PO BEDTIME Qty: 180 RF: 1 norethindrone ac-eth estradiol [Loestrin 1.12/08 ()] 1.5-30 mg-mcg tablet 1 tab PO DAILY Qty: 63 RF: 4 ibuprofen 800 mg tablet 800 mg PO TID PRN (Reason: pain) Qty: 60 RF: 1 acetaminophen 500 mg capsule 1,000 mg PO QID PRN (Reason: pain) Qty: 90 RF: 1 fexofenadine [Kay Allergy] 180 mg tablet 180 mg PO DAILY Qty: 30 RF: 1 Referrals: Hunter Singleton DO [Primary Care Provider] - Stand Alone Forms: Work Release Note <Eladia Cespedes DO - Last Filed: 09/21/20 07:35> Cosign ED Attending Cosgermanature Attestation: I was immediately available in the department for consultation. Documentation has been reviewed.
== END 2020-09-20 16:13 | disposition home or self-care (01) ==
PROVIDERS: Emergency Provider Nurse Practitioner Family; PCP Family Medicine
DX: M79.10 Myalgia, unspecified site (principal); R51.9 Headache, unspecified; R11.2 Nausea with vomiting, unspecified; T50.Z95A Adverse effect of other vaccines and biological substances, initial encounter; Z20.822 Contact with and (suspected) exposure to COVID-19
CPT/HCPCS: 81003; 81015; 81025; 87635; 99281; 99282; C9803

== ENCOUNTER → 2021-04-15 09:22 | Outpatient (CLI) | payer OTHER, MEDICAID, SELFPAY ==
[2021-04-15 09:54] LABS: COVID19 -Nasal RAPID Negative (Negative)
== END ==
PROVIDERS: PCP Family Medicine; Visit Provider Nurse Practitioner Family
DX: Z20.822 Contact with and (suspected) exposure to COVID-19 (principal)
CPT/HCPCS: 87635

== ENCOUNTER 2021-05-31 12:52 | Emergency (ER) | payer OTHER, MEDICAID, SELFPAY ==
[2021-05-31 13:00] VITALS: BP 111/70; PULSE 98; RESP 16; TEMP 37.3; O2SAT 99; BMI 22.3
[2021-05-31 13:47] LABS: COVID19 -Nasal RAPID Negative (Negative)
[2021-05-31 14:12] LABS: Influenza A - CEPHEID Flu A NEGATIVE (NEGATIVE); Influenza B - CEPHEID Flu B NEGATIVE (NEGATIVE)
--- NOTE | 2021-05-31 15:04 | ED.FEVER ---
HPI - Fever General Chief Complaint: Fever Stated Complaint: BODY ACHES/COUGH/CANT GET WARM Time Seen by Provider: 05/31/21 14:48 Source: patient Mode of arrival: Ambulatory Limitations: no limitations History of Present Illness HPI Narrative: Patient is a 30-year-old female who presents with body aches fever chills ongoing for the last 3 days. Nonproductive cough. She also has some flank pain and painful frequent urination. He denies any headache no shortness of breath, no chest pain she is currently afebrile and to the Tylenol 2 hours prior to arrival he denies any abdominal pain nausea vomiting. She is complaining of being quite cold and could not get warm. Related Data Previous Rx's Medication Instructions Recorded acetaminophen 500 mg capsule 1,000 mg PO QID PRN #90 cap 11/01/19 ibuprofen 800 mg tablet 800 mg PO TID PRN #60 tab 11/01/19 norethindrone acetate 1.5 1 tab PO DAILY #63 tab 03/25/20 mg-ethinyl estradiol 30 mcg tablet (Loestrin) fexofenadine 180 mg tablet 180 mg PO DAILY #30 tab 09/04/20 (Kay Allergy) ondansetron 4 mg disintegrating 4 mg PO Q8-12H PRN #7 tab 09/20/20 tablet lamotrigine 25 mg tablet 25 mg PO DAILY #180 tab 02/27/21 Allergies Allergy/AdvReac Type Severity Reaction Status Date / Time metoclopramide [From Reglan] AdvReac Intermediate restlessnes Verified 06/30/20 15:16 s Review of Systems Review of Systems Narrative: GENERAL: + chills,+ fatigue HEENT: Denies sinus pain, ear pain, sore throat, difficulty swallowing, neck pain RESPIRATORY: Denies dyspnea, cough, wheezing, hemoptysis, sputum. CARDIOVASCULAR: Denies chest pain, palpitations, orthopnea, edema GASTROINTESTINAL: Denies nausea, vomiting, abdominal pain, diarrhea, constipation, melena. : See HPI MUSCULOSKELETAL: Denies weakness, joint pain, or bony pain SKIN: No rash, no erythema, no pruritus NEUROLOGIC: Denies weakness, dizziness, headache, numbness, change in speech, confusion PSYCHIATRIC: No concerning psychosocial issues. 12 point review of systems is negative except for those stated above and HPI Patient History Medical History ADHD (1994) Anxiety (~2012) Bipolar disorder Chronic back pain (12/2010) Elbow pain (09/2011) Generalized headaches (~2008) GI bleed (03/2014) Hearing loss (~2008) Opioid use disorder Otitis externa Otitis externa Ovarian cyst (2015) Painful menstruation (2016) Pleurisy Postnasal drip PTSD (post-traumatic stress disorder) (2013) Ulnar neuritis Urinary incontinence (10/2013) Surgical History No history of previous surgery Family History Grandfather Cancer Grandfather Diabetes mellitus Father No problems noted. Mother Hypertension Mental health impairment Brother No problems noted. Sister No problems noted. Sister No problems noted. Sister No problems noted. Grandmother Hypertension Grandmother Mental health impairment Social History Smoking Status: Current some day smoker quit status: considering quitting alcohol intake: current substance use type: marijuana Smoking Status: Current some day smoker tobacco type: vaping alcohol intake frequency: holidays/special occasions only Substance Use Type: marijuana and other Exam Initial Vital Signs Initial Vital Signs: Vital Signs Temperature 99.1 F 05/31/21 13:00 Pulse Rate 98 H 05/31/21 13:00 Respiratory Rate 16 05/31/21 13:00 Blood Pressure 111/70 05/31/21 13:00 Pulse Oximetry 99 05/31/21 13:00 GENERAL: Alert 30-year-old female appears be cold under multiple blankets and not feel well HEENT: Head atraumatic,EOMI, pupils reactive, face symmetric, moist mucous membranes CARDIOVASCULAR: Regular rate and rhythm without murmurs, rubs or gallops. RESPIRATORY: Breath sounds equal bilaterally, no wheezes rales or rhonchi. ABDOMEN: Soft, nontender. Normoactive bowel sounds all 4 quadrants. No guarding or rebound. : Mild bilateral CVA tenderness EXTREMITIES: Normal range of motion, no clubbing or edema. Neurovascularly intact NEUROLOGICAL: Alert and oriented x4.Normal gait and speech. SKIN: Warm, dry, no laceration, no petechiae, no rashes or lesions. Course Orders Ordered: ED Orders 05/31/21 13:16 COVID19 -Nasal swab/Pre-Proc Stat Influenza A & B (PCR) Stat 05/31/21 15:37 Urine Microscopic Stat Discontinued Medications Ibuprofen (Ibuprofen 400 Mg Tablet) 800 mg PO NOW ONE Stop: 05/31/21 15:17 Last Admin: 05/31/21 15:26 Dose: 800 mg Documented by: KADE Vital Signs Vital signs: Vital Signs - 8 hr 05/31/21 13:00 05/31/21 15:33 Temperature 99.1 F Pulse Rate 98 H 91 H Respiratory Rate 16 20 Blood Pressure 111/70 107/66 Pulse Oximetry 99 96 MDM - Fever Lab Data Labs: Lab Results 05/31/21 05/31/21 05/31/21 Range/Units 13:16 13:16 15:37 Urine RBC 1-5/hpf (0-5/HPF) Urine WBC 1-5/hpf (0-5/HPF) Ur Squamous Epith Cells 5-10 /hpf H (0-5/HPF) Amorphous Sediment 2+ Urine Bacteria None seen (None) Ur Culture Indicated? Cult not indicated SARS-CoV-2 (PCR) Negative (Negative) Influenza A (RT-PCR) Flu a negative (NEGATIVE) Influenza B (RT-PCR) Flu b negative (NEGATIVE) Point of Care Testing Test Results Negative Urine Dip Bedside Urine Glucose Negative Bedside Urine Bilirubin - Negative Bedside Urine Ketone - Negative Urine Specific [place] 1.025 Bedside Urine Occult Blood + Bedside Urine pH 6.0 Bedside Urine Protein - Negative Bedside Urine Urobilinogen - Negative Bedside Urine Nitrite - Negative Bedside Urine Leukocytes - Negative Esterase MDM Narrative Medical decision making narrative: Patient is chilled but hemodynamically stable. COVID, influenza and urinalysis are negative. Recommend she have a repeat COVID test in the next few days. She is given a work note. Discussed return precautions with her. Discharge Plan Departure Patient Disposition: Home Clinical Impression: Upper respiratory infection Instructions: DI for Viral Upper Respiratory Infection -- Adult Activity Restrictions/Additional Instructions: *You have been diagnosed with upper respiratory infection *What to do: At this time no antibiotics are indicated. COVID and influenza are negative. You may need and repeat COVID test in about 2-5 days. *Continue to take medications as directed Motrin 800 mg every 8 hours if needed for [id number] pain or fever Tylenol 1000 mg every 6 hours if needed for [id number] pain or fever *Follow up with your primary care provider in 2-3 days *Return to ER if you should have increased difficulty breathing, fever not controlled, increasing weakness or any new, worsening or concerning symptoms Prescriptions: No Action lamotrigine 25 mg tablet 25 mg PO DAILY Qty: 180 2RF Rx Instructions: two p.o. q.h.s. norethindrone ac-eth estradiol [Loestrin 1.5 (21)] 1.5-30 mg-mcg tablet 1 tab PO DAILY Qty: 63 4RF Rx Instructions: Take at same time every day. ibuprofen 800 mg tablet 800 mg PO TID PRN (Reason: pain) Qty: 60 1RF acetaminophen 500 mg capsule 1,000 mg PO QID PRN (Reason: pain) Qty: 90 1RF fexofenadine [Kay Allergy] 180 mg tablet 180 mg PO DAILY Qty: 30 1RF ondansetron 4 mg tablet,disintegrating 4 mg PO Q8-12H PRN (Reason: nausea and vomiting) Qty: 7 0RF Referrals: Hunter Singleton, [Primary Care Provider] - Stand Alone Forms: Work Release Note
[2021-05-31] MEDS: IBUPROFEN 400 MG TABLET 800 MG PO (15:26)
[2021-05-31 15:33] VITALS: BP 107/66; PULSE 91; RESP 20; O2SAT 96
[2021-05-31 15:51] LABS: Amorphous Sediment Urine 2+; Bacteria Urine None Seen; Culture Indicated Urine Cult Not Indicated; RBC Urine 1-5/HPF (0-5/HPF); Squamous Epithelial Cell Urine 5-10 /HPF (0-5/HPF); WBC Urine 1-5/HPF (0-5/HPF)
== END 2021-05-31 15:34 | disposition home or self-care (01) ==
PROVIDERS: Emergency Medicine; Emergency Provider Emergency Medicine; PCP Family Medicine
DX: J06.9 Acute upper respiratory infection, unspecified (principal)
CPT/HCPCS: 81003; 81015; 81025; 87502; 87635; 99282; 99283; C9803

== ENCOUNTER 2021-09-08 03:17 | Emergency (ER) | payer OTHER, MEDICAID, SELFPAY ==
[2021-09-08 03:29] VITALS: BP 124/64; PULSE 95; RESP 18; TEMP 36.7; O2SAT 98; BMI 23.1
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
--- NOTE | 2021-09-08 03:40 | PC.NURSE ---
see triage note for explanation of events
[2021-09-08] MEDS: ONDANSETRON 4 MG ODT PREPACK 1 BOTTLE MISC (03:45)
[2021-09-08] MEDS: HYDROCODONE/ACET 5/325 PREPACK 1 BOTTLE MISC (04:07)
--- NOTE | 2021-09-08 04:10 | DI.RAD.S_ITS ---
PROCEDURE: XR HAND RT MIN 3V INDICATIONS: pain, swelling, injury TECHNIQUE: 3 views of the hand(s) acquired. COMPARISON: None. FINDINGS: Bones: No fractures or dislocations. Carpal bones are normally aligned. No suspicious bony lesions. Soft tissues: No suspicious soft tissue calcifications. IMPRESSION: No fracture. No osseous lesion. If symptoms and/or clinical suspicion for pathology persists, further assessment with repeat radiographs (7-10 days) or advanced imaging (e.g. CT, MRI or bone scan) should be considered. Dictated by: Maricel Ulrich MD, PhD on 09/08/2021 at 7:41 Approved by: Maricel Ulrich MD, PhD on 09/08/2021 at 7:41
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
[2021-09-08 04:43] VITALS: BP 126/83; PULSE 78; RESP 18; O2SAT 97
== END 2021-09-08 04:46 | disposition home or self-care (01) ==
PROVIDERS: Emergency Provider Emergency Medicine; PCP Family Medicine
DX: S20.213A Contusion of bilateral front wall of thorax, initial encounter (principal); R11.10 Vomiting, unspecified; S60.222A Contusion of left hand, initial encounter; F17.290 Nicotine dependence, other tobacco product, uncomplicated; V91.89XA Other injury due to other accident to unspecified watercraft, initial encounter
CPT/HCPCS: 71046; 73130; 99283

== ENCOUNTER 2021-11-06 07:30 | Emergency (ER) | payer OTHER, MEDICAID, SELFPAY ==
[2021-11-06 07:42] VITALS: BP 140/67; PULSE 107; RESP 18; TEMP 36.4; O2SAT 100; BMI 21.6
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
[2021-11-06] MEDS: KETOROLAC 30 MG/ML VIAL IM (08:30)
[2021-11-06] MEDS: HYDROMORPHONE 1 MG INJ IM (08:31)
[2021-11-06 09:38] VITALS: BP 144/84; PULSE 78; RESP 16; O2SAT 98
== END 2021-11-06 09:38 | disposition home or self-care (01) ==
PROVIDERS: Emergency Provider Emergency Medicine; PCP Family Medicine
DX: M25.512 Pain in left shoulder (principal); M54.12 Radiculopathy, cervical region
CPT/HCPCS: 96372; 99283; J1170; J1885

== ENCOUNTER → 2021-11-21 11:18 | Outpatient (CLI) | payer OTHER, MEDICAID, SELFPAY ==
--- NOTE | 2021-11-21 11:21 | DI.RAD.S_ITS ---
PROCEDURE: XR CERVICAL SPINE 2V OR 3V INDICATIONS: persistent L shoulder pain after injury TECHNIQUE: 3 view(s) of the cervical spine were acquired. COMPARISON: [facility], CT, CT CERVICAL SPINE WO CON, 10/30/2019, 20:02. FINDINGS: Bones: No fractures or dislocations to the T1 level. The lateral masses of C1 appear intact on the odontoid view. No suspicious bony lesions. Soft tissues: No prevertebral soft tissue swelling. IMPRESSION: No significant abnormality. Dictated by: Andrade Garcia M.D. on 11/21/2021 at 12:59 Approved by: Andrade Garcia M.D. on 11/21/2021 at 13:00
--- NOTE | 2021-11-21 11:21 | DI.RAD.S_ITS ---
PROCEDURE: XR SHOULDER LT MIN 2V INDICATIONS: persistent L shoulder pain after injury TECHNIQUE: 3 views of the shoulder were acquired. COMPARISON: None. FINDINGS: Bones: No fractures or dislocations. No suspicious bony lesions. Visualized ribs appear intact. Soft tissues: No suspicious soft tissue calcifications. IMPRESSION: No significant abnormality. Dictated by: Andrade Garcia M.D. on 11/21/2021 at 13:01 Approved by: Andrade Garcia M.D. on 11/21/2021 at 13:01
== END ==
PROVIDERS: PCP Family Medicine; Referring Provider Family Medicine; Visit Provider Family Medicine
DX: S16.1XXA Strain of muscle, fascia and tendon at neck level, initial encounter (principal); S46.912A Strain of unspecified muscle, fascia and tendon at shoulder and upper arm level, left arm, initial encounter; X58.XXXA Exposure to other specified factors, initial encounter
CPT/HCPCS: 72040; 73030

== ENCOUNTER 2022-01-01 16:12 | Emergency (ER) | payer OTHER, MEDICAID, SELFPAY ==
[2022-01-01 16:29] VITALS: BP 123/65; PULSE 93; RESP 17; TEMP 38.8; O2SAT 98
[2022-01-01] MEDS: ONDANSETRON 4 MG ODT SL (16:40)
--- NOTE | 2022-01-01 17:05 | ED_ITS ---
HPI - Fever <LATASHA Valverde - Last Filed: 01/01/22 18:10> General Chief Complaint: Fever Stated Complaint: nausea, cold, joints ache, wheezing Time Seen by Provider: 01/01/22 16:36 Source: patient Mode of arrival: Ambulatory History of Present Illness HPI Narrative: This is a 31-year-old female presents to the emergency department after leaving the walk-in clinic complaining of vomiting since 0200 hours and inability to keep anything down, chills, sore throat, runny nose, congestion, and concern about dehydration. Patient states that she went to the walk-in clinic, they did a respiratory evaluation and tested her for flu and COVID, sent some Zofran to her pharmacy but she states that she was too miserable to drive there and came to the emergency department instead. She denies taking any medication prior to arrival because she cannot keep anything down. She states that she had the [employer] COVID vaccine, this was over six months ago. Patient endorses a history of strep throat as a child but denies sensation of this at this time. She endorses having a cough. She endorses having diarrhea. Related Data Previous Rx's Medication Instructions Recorded ibuprofen 800 mg tablet 800 mg PO TID PRN pain #60 tabs 11/01/19 fexofenadine 180 mg tablet 180 mg PO DAILY #30 tabs 09/04/20 (Kay Allergy) acetaminophen 500 mg capsule 1,000 mg PO QID PRN pain #90 caps 11/21/21 methocarbamol 500 mg tablet 500 mg PO BEDTIME #30 tabs 11/21/21 naproxen 500 mg tablet 500 mg PO BID #60 tabs 11/21/21 lamotrigine 100 mg tablet 100 mg PO DAILY #30 tabs 11/24/21 Allergies Allergy/AdvReac Type Severity Reaction Status Date / Time metoclopramide [From Reglan] AdvReac Intermediate restlessnes Verified 01/01/22 16:31 s Review of Systems <LATASHA Valverde - Last Filed: 01/01/22 18:10> Review of Systems Narrative: General: Endorses fever, chills, denies malaise, sweats, fatigue Head/Neck: denies headache, neck pain, dizziness Eyes: denies visual changes, eye pain Cardio: denies chest pain, palpitations, edema Respiratory: denies dyspnea, endorses having a mild cough, congestion, runny nose, and sore throat GI: denies abdominal pain, nausea, vomiting, or diarrhea : denies dysuria, hematuria, urinary retention, frequency or incontinence MSK: denies joint pain, muscle weakness Skin: denies rash, itching, skin lesions or other Neuro: denies numbness, tingling Patient History <LATASHA Valverde - Last Filed: 01/01/22 18:10> Medical History ADHD (1994) Anxiety (~2012) Bipolar disorder Cervical strain Chronic back pain (12/2010) Elbow pain (09/2011) Generalized headaches (~2008) GI bleed (03/2014) Hearing loss (~2008) Left shoulder strain Opioid use disorder Otitis externa Otitis externa Ovarian cyst (2015) Painful menstruation (2016) Pleurisy Postnasal drip PTSD (post-traumatic stress disorder) (2013) Ulnar neuritis Urinary incontinence (10/2013) Surgical History No history of previous surgery Family History Grandfather Cancer Grandfather Diabetes mellitus Father No problems noted. Mother Hypertension Mental health impairment Brother No problems noted. Sister No problems noted. Sister No problems noted. Sister No problems noted. Grandmother Hypertension Grandmother Mental health impairment Social History Smoking Status: Current some day smoker quit status: considering quitting alcohol intake: current substance use type: marijuana Smoking Status: Current some day smoker tobacco type: vaping alcohol intake frequency: holidays/special occasions only Substance Use Type: marijuana and other Exam <LATASHA Valverde - Last Filed: 01/01/22 18:10> Narrative Exam Narrative: Independently reviewed vitals signs and nursing notes. General: cooperative, comfortable, appears to be in acute distress, febrile Head: atraumatic, symmetrical facial expressions Neck: supple Eyes: equal round and reactive, EOMI, conjunctiva normal Nose: nares patent, no rhinorrhea Mouth/Throat: moist mucus membranes Cardiovascular: regular rate and rhythm, no additional heart sounds, no peripheral edema, warm extremities Respiratory: normal effort, able to speak in complete sentences, no audible wheezing, stridor, or rales. No retractions or tachypnea. Breath sounds are clear throughout all tucker, no increased effort. GI: abdomen soft, nontender to palpation, nondistended, no masses, no exquisite tenderness with exam, without guarding or rebound. MSK: moves all extremities, neurovascularly intact, no weakness, normal tone Skin: brisk capillary refill, no rash, no erythema Neuro: normal speech and cognition, A&O x3 Psych: mental status is grossly normal, congruent mood, normal affect, pleasant and cooperative Initial Vital Signs Initial Vital Signs: Vital Signs Temperature 101.9 F H 01/01/22 16:29 Pulse Rate 93 H 01/01/22 16:29 Respiratory Rate 17 01/01/22 16:29 Blood Pressure 123/65 01/01/22 16:29 Pulse Oximetry 98 01/01/22 16:29 Oxygen Delivery Method 01/01/22 16:29 <Erwin Fay DO - Last Filed: 01/01/22 18:14> Initial Vital Signs Initial Vital Signs: Vital Signs Temperature 101.9 F H 01/01/22 16:29 Pulse Rate 93 H 01/01/22 16:29 Respiratory Rate 17 01/01/22 16:29 Blood Pressure 123/65 01/01/22 16:29 Pulse Oximetry 98 01/01/22 16:29 Oxygen Delivery Method 01/01/22 16:29 Course <LATASHA Valverde - Last Filed: 01/01/22 18:10> Orders Ordered: ED Orders 01/01/22 17:59 UA dip and micro [Urinalysis and Microscopic] Stat 01/01/22 18:11 Urine Culture Stat Urine Microscopic Stat Discontinued Medications Acetaminophen (Acetaminophen 325 Mg Tablet) 975 mg PO NOW ONE Stop: 01/01/22 16:29 Last Admin: 01/01/22 17:08 Dose: 975 mg Documented By: NR Ibuprofen (Ibuprofen 400 Mg Tablet) 800 mg PO NOW ONE Stop: 01/01/22 16:29 Last Admin: 01/01/22 17:08 Dose: 800 mg Documented By: NR Ondansetron HCl (Ondansetron 4 Mg Odt) 4 mg SL NOW ONE Stop: 01/01/22 16:29 Last Admin: 01/01/22 16:40 Dose: 4 mg Documented By: ИВАН Vital Signs Vital signs: Vital Signs - 8 hr 01/01/22 16:29 Temperature 101.9 F H Pulse Rate 93 H Respiratory Rate 17 Blood Pressure 123/65 Pulse Oximetry 98 Oxygen Delivery Method Room Air <Erwin Fay DO - Last Filed: 01/01/22 18:14> Orders Ordered: ED Orders 01/01/22 17:59 UA dip and micro [Urinalysis and Microscopic] Stat 01/01/22 18:11 Urine Culture Stat Urine Microscopic Stat Discontinued Medications Acetaminophen (Acetaminophen 325 Mg Tablet) 975 mg PO NOW ONE Stop: 01/01/22 16:29 Last Admin: 01/01/22 17:08 Dose: 975 mg Documented By: SARAH Ibuprofen (Ibuprofen 400 Mg Tablet) 800 mg PO NOW ONE Stop: 01/01/22 16:29 Last Admin: 01/01/22 17:08 Dose: 800 mg Documented By: SARAH Ondansetron HCl (Ondansetron 4 Mg Odt) 4 mg SL NOW ONE Stop: 01/01/22 16:29 Last Admin: 01/01/22 16:40 Dose: 4 mg Documented By: ИВАН Vital Signs Vital signs: Vital Signs - 8 hr 01/01/22 16:29 Temperature 101.9 F H Pulse Rate 93 H Respiratory Rate 17 Blood Pressure 123/65 Pulse Oximetry 98 Oxygen Delivery Method Room Air MDM - Fever <LATASHA Valverde - Last Filed: 01/01/22 18:10> Lab Data Labs: Point of Care Testing Test Results Negative Urine Dip Bedside Urine Glucose Negative Bedside Urine Bilirubin - Negative Bedside Urine Ketone ++ 40 Urine Specific [place] 1.025 Bedside Urine Occult Blood - Negative Bedside Urine pH 6.0 Bedside Urine Protein + 30 Bedside Urine Urobilinogen - Negative Bedside Urine Nitrite - Negative Bedside Urine Leukocytes - Negative Esterase MDM Narrative Medical decision making narrative: This is a 31-year-old female presents to the emergency department after being seen over the walk-in clinic for fever, chills, sore throat, nausea vomiting, cough and upper respiratory illness which started at 0200 hours. Patient states that she has been unable to keep anything down, she was given ODT Zofran in the emergency department, tolerated ibuprofen and Tylenol afterwards and to cups of water. Has not had any vomiting. Her urine is negative for nitrites, white blood cells, red blood cells, and , only positive for protein ketones. COVID PCR is negative, as well as influenza a and influenza B all negative. Today is day one of her symptoms without hypoxia, respiratory distress, or focal exam to suggest secondary bacterial infection. She had of fever today, was mildly dehydrated, had nausea vomiting and after Zofran was able to p.o. challenge and kept everything down. She has follow-up scheduled tomorrow with Dr. Singleton, encouraged patient to complete another COVID test tomorrow, and to treat her symptoms as they come. Urine is negative. Discussed CDC guidelines for quarantine, mask wearing, physical distancing, and infection prevention measures such as frequent handwashing. Discussed supportive treatments: Tylenol/Motrin as needed for pain/fever. OTC decongestant medications and/or antihistamines for symptomatic relief. Maintain adequate fluid intake. Follow-up with PCP as directed. Return to clinic/ER instructions discussed for new, not improving, or worsening symptoms. All questions answered. This is likely a viral upper respiratory infection causing her fever, runny nose, sore throat, cough, and vomiting. Patient endorses a history of diarrhea, this could be related to illness or is her normal baseline. She was prescribed Zofran from the walk-in clinic provider, does not need any additional medications at this time. She was able to keep down Tylenol and ibuprofen, this brought her fever down, she feels much better and is tolerating p.o., wishes to discharge home. Patient is appropriate and amenable to discharge home. Vital signs are stable on repeat examination is unremarkable. Patient has been informed of results. Patient has been given strict return to ER precautions for any new or worsening symptoms. Patient understands to follow up closely with outpatient providers as instructed. Patient understands plan and agrees to discharge home. All questions and concerns answered at this time. <Erwin Fay, - Last Filed: 01/01/22 18:14> Lab Data Labs: Point of Care Testing Test Results Negative Urine Dip Bedside Urine Glucose Negative Bedside Urine Bilirubin - Negative Bedside Urine Ketone ++ 40 Urine Specific [place] 1.025 Bedside Urine Occult Blood - Negative Bedside Urine pH 6.0 Bedside Urine Protein + 30 Bedside Urine Urobilinogen - Negative Bedside Urine Nitrite - Negative Bedside Urine Leukocytes - Negative Esterase Discharge Plan Departure Patient Disposition: Home Clinical Impression: Fever Qualifiers: Fever type: unspecified Qualified Code(s): R50.9 - Fever, unspecified Upper respiratory infection Qualifiers: URI type: unspecified URI Qualified Code(s): J06.9 - Acute upper respiratory infection, unspecified Instructions: DI for Viral Upper Respiratory Infection -- Adult, DI for Vomiting -- Adult, DI for Fever (Symptom) -- Adult Activity Restrictions/Additional Instructions: *You have been diagnosed with fever, likely this is viral respiratory illness like COVID, influenza, or other viral illness but your COVID, flu a and flu B were all negative today. Since this is day one of your symptoms, it may not turn positive until you are a couple more days in. Please use the Zofran as needed for nausea and vomiting, if you need it, take it every 8 hours, and then wait 30 minutes, hydrate and take ibuprofen and Tylenol so that you can keep it down. This will likely prevent you from getting as sick as you were when you came in. Please go to your appointment with Dr. Singletno tomorrow and check your temperature frequently, take Tylenol and ibuprofen as needed, and continue to stay hydrated by drinking plenty of clear fluids. Your urine was negative for infection and . I hope you feel better soon. *What to do: *Please continue to take your regular medications as directed. [ ] New medication prescriptions sent to your pharmacy: [ ] [ ] New medication written as a paper prescription [x ] No new medications given *Please follow up with your primary care provider in 2-3 days, call for an appointment. Let them know you were seen in the Emergency Department and that we asked that you be seen for follow-up. We will electronically transmit a record of today's note if your PCP is in our system *If you do not have a primary care provider please contact [phone] to [facility] with one of the [facility] primary care providers. *Return to Emergency Department if you should have any new, worsening or concerning symptoms, such as [fever greater than 101F, chills, worsening pain, persistent vomiting or other bothersome symptoms] Prescriptions: No Action lamotrigine 100 mg tablet 100 mg PO DAILY Qty: 30 2RF ibuprofen 800 mg tablet 800 mg PO TID PRN (Reason: pain) Qty: 60 1RF fexofenadine [Kay Allergy] 180 mg tablet 180 mg PO DAILY Qty: 30 1RF naproxen 500 mg tablet 500 mg PO BID Qty: 60 1RF methocarbamol 500 mg tablet 500 mg PO BEDTIME Qty: 30 1RF acetaminophen 500 mg capsule 1,000 mg PO QID PRN (Reason: pain) Qty: 90 1RF Referrals: Hunter Singleton DO [Primary Care Provider] - <Erwin Fay DO - Last Filed: 01/01/22 18:14> Cosign ED Attending Cosignature Attestation: Dr Fay Co-Sign Statement: I was available for consultation during this patient's emergency department visit. This chart is signed by myself for administrative purposes only. I did not have direct contact with this patient during this visit. They were seen independently by the APC.
[2022-01-01] MEDS: IBUPROFEN 400 MG TABLET 800 MG PO (17:08)
[2022-01-01] MEDS: ACETAMINOPHEN 325 MG TABLET 975 MG PO (17:08)
[2022-01-01 18:18] VITALS: BP 111/64; PULSE 88; RESP 16; O2SAT 98
[2022-01-01 18:19] LABS: Appearance Urine UA CLEAR; Bilirubin Urine UA NEGATIVE (NEGATIVE); Color Urine UA YELLOW; Glucose Urine UA NEGATIVE (Negative); Ketones Urine UA 2+ (NEGATIVE); Leukocyte Esterase Urine UA TRACE (NEGATIVE); Nitrite Urine UA NEGATIVE (Negative); Occult Blood Urine UA NEGATIVE (Negative); Protein Urine UA 1+ (Negative); Urobilinogen Urine UA 0.2 E.U./dL (0.2)
[2022-01-01 18:20] LABS: pH Urine UA 5.5 (4.5-8.0)
[2022-01-01 18:27] LABS: Amorphous Sediment Urine 1+; RBC Urine None Seen (0-5/HPF); Squamous Epithelial Cell Urine 1-5 /HPF (0-5/HPF); WBC Urine 1-5/HPF (0-5/HPF)
[2022-01-01 18:28] LABS: Bacteria Urine Moderate (10-30); Culture Indicated Urine Specimen Cultured; Mucus Urine 1+ (Negative)
== END 2022-01-01 18:23 | disposition home or self-care (01) ==
PROVIDERS: Emergency Provider Nurse Practitioner Critical Care Medicine; PCP Family Medicine
DX: J06.9 Acute upper respiratory infection, unspecified (principal); R50.9 Fever, unspecified; M54.2 Cervicalgia; R11.2 Nausea with vomiting, unspecified
CPT/HCPCS: 0240U; 81001; 81003; 81025; 87086; 99282; 99283

== ENCOUNTER 2022-01-04 04:40 | Emergency (ER) | payer OTHER, MEDICAID, SELFPAY ==
[2022-01-04 04:50] VITALS: BP 148/81; PULSE 93; RESP 22; TEMP 37.1; O2SAT 97; BMI 22.4
[2022-01-04] MEDS: SODIUM CHLORIDE 0.9% 1,000 ML 1000 ML IV (05:13)
[2022-01-04] MEDS: KETOROLAC 30 MG/ML VIAL 15 MG IV (05:14)
[2022-01-04 05:26] LABS: Add Manual Diff / Slide Review NO; Basophils Absolute Auto 100 /uL (0-100); Basophils Percent Auto 0.6 % (0-2); Eosinophils Absolute Auto 100 /uL (0-450); Eosinophils Percent Auto 1.7 % (2-4); Hematocrit 40.9 % (36-46); Lymphocytes Absolute Auto 1500 /uL (1100-4500); Lymphocytes Percent Auto 16.6 % (25-40); Mean Corpuscular HGB Conc 34.2 % (30-36); Mean Corpuscular Hemoglobin 30.8 PG (26-34); Monocytes Absolute Auto 700 /uL (0-900); Monocytes Percent Auto 7.4 % (3-14); Neutrophils Absolute Auto 6600 /uL (1500-7000); Neutrophils Percent Auto 73.7 % (50-75); Platelet Count 190 X10^3/uL (150-400); Red Blood Cell Count 4.55 X10^6/uL (4.0-5.2); Red Cell Distribution Width 13.1 % (11.6-14.8); White Blood Cell Count 8.9 X10^3/uL (4.5-11.0)
[2022-01-04 05:36] LABS: Alanine Aminotransferase 13 IU/L (<35); Albumin 4.5 g/dL (3.5-5.0); Albumin Globulin Ratio 1.3 (1.0-2.8); Alkaline Phosphatase 96 U/L (38-126); Aspartate Aminotransferase 24 IU/L (14-36); BUN Creatinine Ratio 13.3 (6-22); Bilirubin Total 0.6 mg/dL (0.2-1.3); Blood Urea Nitrogen 10 mg/dL (7-17); Calcium 8.8 mg/dL (8.4-10.2); Carbon Dioxide 26 mmol/L (22-32); Chloride 105 mmol/L (98-107); Estimated Glomerular Filt Rate > 60 mL/min (>60); Globulin 3.4 g/dL (1.7-4.1); Glucose 98 mg/dL (70-100); HEMOLYSIS < 15 (0-50); Potassium 3.7 mmol/L (3.4-5.1); Sodium 139 mmol/L (137-145); Total Protein 7.9 g/dL (6.3-8.2)
[2022-01-04 05:40] LABS: COVID19 -Nasal RAPID Negative (Negative)
--- NOTE | 2022-01-04 05:56 | ED_ITS ---
HPI - Recheck/Abnormal Lab/Rx General Chief Complaint: Recheck/Abnormal Lab/Rx Stated Complaint: Lt. and RT. NUMBNESS ARMS/NECK PAIN Time Seen by Provider: 01/04/22 04:50 Source: patient Mode of arrival: Ambulatory History of Present Illness HPI narrative: 31-year-old female nonsmoker with history of frequent UTIs and mental health illness presents with a chief complaint of some urinary frequency and urgency with low-grade fever. She has had some mild headaches but denies any blurred vision or trouble with speech. When she becomes nervous and anxious she complains of numbness in the fingers of both arms but no weakness in her arms and no pain. She has no chest pain or shortness of breath. She does have widespread body aches. She has some pain in her left shoulder that is worse with use of her arm. She states that this has been going on for quite some time. She was recently seen and evaluated and had a thorough workup including urine, labs and swabs demonstrating a urinary tract infection. The patient has taken 1 or 2 doses of her antibiotic and presents here because she is concerned something else might be going on Related Data Previous Rx's Medication Instructions Recorded ibuprofen 800 mg tablet 800 mg PO TID PRN pain #60 tabs 11/01/19 fexofenadine 180 mg tablet 180 mg PO DAILY #30 tabs 09/04/20 (Kay Allergy) acetaminophen 500 mg capsule 1,000 mg PO QID PRN pain #90 caps 11/21/21 methocarbamol 500 mg tablet 500 mg PO BEDTIME #30 tabs 11/21/21 naproxen 500 mg tablet 500 mg PO BID #60 tabs 11/21/21 lamotrigine 100 mg tablet 100 mg PO DAILY #30 tabs 11/24/21 cephalexin 500 mg capsule 500 mg PO BID 5 days #10 caps 01/03/22 ondansetron 4 mg disintegrating 4 mg PO Q8H PRN nausea and 01/03/22 tablet vomiting #14 tabs phenazopyridine 100 mg tablet 100 mg PO TID PRN pain 6 doses #7 01/03/22 (Pyridium) tabs Allergies Allergy/AdvReac Type Severity Reaction Status Date / Time metoclopramide [From Reglan] AdvReac Intermediate restlessnes Verified 01/01/22 16:31 s Review of Systems Review of Systems Narrative: GENERAL: See HPI HEENT: See HPI RESPIRATORY: See HPI CARDIOVASCULAR: Denies chest pain, palpitations, orthopnea, edema, GASTROINTESTINAL: Denies nausea, vomiting, abdominal pain, diarrhea, constipation, melena. : See HPI MUSCULOSKELETAL: denies weakness, joint pain, or bony pain SKIN: Denies rash, skin lesions, or other NEUROLOGIC: Denies weakness, headache, numbness, change in speech, confusion, seizures, incoordination. PSYCHIATRIC: No concerning psychosocial issues. 12 point review of systems is negative except for those stated above Patient History Medical History ADHD (1994) Anxiety (~2012) Bipolar disorder Cervical strain Chronic back pain (12/2010) Elbow pain (09/2011) Generalized headaches (~2008) GI bleed (03/2014) Hearing loss (~2008) Left shoulder strain Opioid use disorder Otitis externa Otitis externa Ovarian cyst (2015) Painful menstruation (2016) Pleurisy Postnasal drip PTSD (post-traumatic stress disorder) (2013) Ulnar neuritis Urinary incontinence (10/2013) Surgical History No history of previous surgery Family History Grandfather Cancer Grandfather Diabetes mellitus Father No problems noted. Mother Hypertension Mental health impairment Brother No problems noted. Sister No problems noted. Sister No problems noted. Sister No problems noted. Grandmother Hypertension Grandmother Mental health impairment Social History Smoking Status: Current some day smoker quit status: considering quitting alcohol intake: current substance use type: marijuana Smoking Status: Current some day smoker tobacco type: vaping alcohol intake frequency: holidays/special occasions only Substance Use Type: marijuana and other Exam Narrative Exam Narrative: GENERAL: 31[] year old patient appears stated age. Well-developed patient, in mild distress. Tearful and anxious HEAD: Atraumatic. Normocephalic. EYES: Pupils equal round and reactive. Extraocular motions intact. No scleral icterus. No injection or drainage. ENT: Nose without bleeding, purulent drainage. Throat without erythema, tonsillar hypertrophy or exudate. Airway patent. NECK: Trachea midline. Non tender, no meningeal signs, no change with axial load CARDIOVASCULAR: Regular rate and rhythm without murmurs, gallops, or rubs. RESPIRATORY: Clear to auscultation. Breath sounds equal bilaterally. No wheezes, rales, or rhonchi. GASTROINTESTINAL: Abdomen soft, non-tender, nondistended. EXTREMITIES: No edema or joint tenderness. BACK: Nontender without deformity or crepitance. No flank tenderness. NEURO: AOx3. SKIN: No rash or erythema of visible areas Initial Vital Signs Initial Vital Signs: Vital Signs Temperature 98.8 F 01/04/22 04:50 Pulse Rate 93 H 01/04/22 04:50 Respiratory Rate 22 01/04/22 04:50 Blood Pressure 148/81 H 01/04/22 04:50 Pulse Oximetry 97 01/04/22 04:50 Oxygen Delivery Method 01/04/22 04:50 Course Orders Ordered: Discontinued Medications Sodium Chloride (Normal Saline 0.9%) 1,000 mls @ 1,000 mls/hr IV BOLUS ONE Stop: 01/04/22 06:01 Last Infusion: 01/04/22 06:25 Dose: 0 mls/hr Documented By: Admin: 01/04/22 05:13 Dose: 1,000 mls/hr Documented By: FELIPE Ketorolac Tromethamine (Ketorolac 30 Mg/Ml Vial) 15 mg IV NOW ONE Stop: 01/04/22 05:03 Last Admin: 01/04/22 05:14 Dose: 15 mg Documented By: FELIPE Vital Signs Vital signs: Vital Signs - 8 hr 01/04/22 04:50 Temperature 98.8 F Pulse Rate 93 H Respiratory Rate 22 Blood Pressure 148/81 H Pulse Oximetry 97 Oxygen Delivery Method Room Air MDM - Recheck/Abnormal Lab/Rx Lab Data Result diagrams: 01/04/22 05:15 01/04/22 05:15 Labs: Lab Results 01/04/22 01/04/22 01/04/22 Range/Units 05:15 05:15 05:15 WBC 8.9 (4.5-11.0) X10^3/uL RBC 4.55 (4.0-5.2) X10^6/uL Hgb 14.0 (12.0-16.0) g/dL Hct 40.9 (36-46) % MCV 90.0 (80-100) fL MCH 30.8 (26-34) PG MCHC 34.2 (30-36) % RDW 13.1 (11.6-14.8) % Plt Count 190 (150-400) X10^3/uL Neut % (Auto) 73.7 (50-75) % Lymph % (Auto) 16.6 L (25-40) % [place] % (Auto) 7.4 (3-14) % Eos % (Auto) 1.7 L (2-4) % Baso % (Auto) 0.6 (0-2) % Neut # (Auto) 6600 (7898-9422) /uL Lymph # (Auto) 1500 (7593-4529) /uL [place] # (Auto) 700 (0-900) /uL Eos # (Auto) 100 (0-450) /uL Baso # (Auto) 100 (0-100) /uL Sodium 139 (137-145) mmol/L Potassium 3.7 (3.4-5.1) mmol/L Chloride 105 (98-107) mmol/L Carbon Dioxide 26 (22-32) mmol/L BUN 10 (7-17) mg/dL Creatinine 0.75 (0.52-1.04) mg/dL Estimated GFR > 60 (>60) mL/min BUN/Creatinine Ratio 13.3 (6-22) Glucose 98 (70-100) mg/dL Calcium 8.8 (8.4-10.2) mg/dL Magnesium 2.0 (1.6-2.3) mg/dL Total Bilirubin 0.6 (0.2-1.3) mg/dL AST 24 (14-36) IU/L ALT 13 (<35) IU/L Alkaline Phosphatase 96 (38-126) U/L Total Protein 7.9 (6.3-8.2) g/dL Albumin 4.5 (3.5-5.0) g/dL Globulin 3.4 (1.7-4.1) g/dL Albumin/Globulin Ratio 1.3 (1.0-2.8) SARS-CoV-2 (PCR) (Negative) Influenza A (RT-PCR) (NEGATIVE) Influenza B (RT-PCR) (NEGATIVE) 01/04/22 01/04/22 Range/Units 05:16 05:20 WBC (4.5-11.0) X10^3/uL RBC (4.0-5.2) X10^6/uL Hgb (12.0-16.0) g/dL Hct (36-46) % MCV (80-100) fL MCH (26-34) PG MCHC (30-36) % RDW (11.6-14.8) % Plt Count (150-400) X10^3/uL Neut % (Auto) (50-75) % Lymph % (Auto) (25-40) % [place] % (Auto) (3-14) % Eos % (Auto) (2-4) % Baso % (Auto) (0-2) % Neut # (Auto) (3617-9585) /uL Lymph # (Auto) (0535-3800) /uL [place] # (Auto) (0-900) /uL Eos # (Auto) (0-450) /uL Baso # (Auto) (0-100) /uL Sodium (137-145) mmol/L Potassium (3.4-5.1) mmol/L Chloride (98-107) mmol/L Carbon Dioxide (22-32) mmol/L BUN (7-17) mg/dL Creatinine (0.52-1.04) mg/dL Estimated GFR (>60) mL/min BUN/Creatinine Ratio (6-22) Glucose (70-100) mg/dL Calcium (8.4-10.2) mg/dL Magnesium (1.6-2.3) mg/dL Total Bilirubin (0.2-1.3) mg/dL AST (14-36) IU/L ALT (<35) IU/L Alkaline Phosphatase (38-126) U/L Total Protein (6.3-8.2) g/dL Albumin (3.5-5.0) g/dL Globulin (1.7-4.1) g/dL Albumin/Globulin Ratio (1.0-2.8) SARS-CoV-2 (PCR) Negative (Negative) Influenza A (RT-PCR) Flu a negative (NEGATIVE) Influenza B (RT-PCR) Flu b negative (NEGATIVE) Point of Care Testing Test Results Negative Rapid Strep A Negative Urine Dip Bedside Urine Glucose Negative Bedside Urine Bilirubin ++ 2 Bedside Urine Ketone - Negative Urine Specific [place] 1.025 Bedside Urine Occult Blood - Negative Bedside Urine pH 5.5 Bedside Urine Protein - Negative Bedside Urine Urobilinogen 2+ 4mg Bedside Urine Nitrite + Positive Bedside Urine Leukocytes + 70 Esterase MDM Narrative Medical decision making narrative: Patient reports fever and chills with body aches and ongoing urinary symptoms. She has a very reassuring history and physical exam as well as response to therapies. She has only had a few doses of her antibiotic and no changes will be needed at least until cultures result. Patient given extensive return precautions and questions have been answered to her apparent satisfaction Discharge Plan Departure Patient Disposition: Home Clinical Impression: UTI (urinary tract infection) Prescriptions: No Action lamotrigine 100 mg tablet 100 mg PO DAILY Qty: 30 2RF ibuprofen 800 mg tablet 800 mg PO TID PRN (Reason: pain) Qty: 60 1RF fexofenadine [Kay Allergy] 180 mg tablet 180 mg PO DAILY Qty: 30 1RF naproxen 500 mg tablet 500 mg PO BID Qty: 60 1RF methocarbamol 500 mg tablet 500 mg PO BEDTIME Qty: 30 1RF acetaminophen 500 mg capsule 1,000 mg PO QID PRN (Reason: pain) Qty: 90 1RF ondansetron 4 mg tablet,disintegrating 4 mg PO Q8H PRN (Reason: nausea and vomiting) Qty: 14 0RF cephalexin 500 mg capsule 500 mg PO BID 5 Days Qty: 10 0RF phenazopyridine [Pyridium] 100 mg tablet 100 mg PO TID PRN (Reason: pain) Qty: 7 0RF Referrals: Hunter Singleton DO [Primary Care Provider] - Visit Report Forms: Patient Portal/API
[2022-01-04 06:03] LABS: Influenza A - CEPHEID Flu A NEGATIVE (NEGATIVE); Influenza B - CEPHEID Flu B NEGATIVE (NEGATIVE)
--- NOTE | 2022-01-07 14:04 | ED.RECABL ---
HPI - Recheck/Abnormal Lab/Rx General Chief Complaint: Recheck/Abnormal Lab/Rx Stated Complaint: Lt. and RT. NUMBNESS ARMS/NECK PAIN Time Seen by Provider: 01/04/22 04:50 Source: patient Mode of arrival: Ambulatory Related Data Previous Rx's Medication Instructions Recorded ibuprofen 800 mg tablet 800 mg PO TID PRN pain #60 tabs 11/01/19 fexofenadine 180 mg tablet 180 mg PO DAILY #30 tabs 09/04/20 (Kay Allergy) acetaminophen 500 mg capsule 1,000 mg PO QID PRN pain #90 caps 11/21/21 methocarbamol 500 mg tablet 500 mg PO BEDTIME #30 tabs 11/21/21 naproxen 500 mg tablet 500 mg PO BID #60 tabs 11/21/21 lamotrigine 100 mg tablet 100 mg PO DAILY #30 tabs 11/24/21 cephalexin 500 mg capsule 500 mg PO BID 5 days #10 caps 01/03/22 ondansetron 4 mg disintegrating 4 mg PO Q8H PRN nausea and 01/03/22 tablet vomiting #14 tabs phenazopyridine 100 mg tablet 100 mg PO TID PRN pain 6 doses #7 01/03/22 (Pyridium) tabs Allergies Allergy/AdvReac Type Severity Reaction Status Date / Time metoclopramide [From Reglan] AdvReac Intermediate restlessnes Verified 01/01/22 16:31 s Patient History Medical History ADHD (1994) Anxiety (~2012) Bipolar disorder Cervical strain Chronic back pain (12/2010) Elbow pain (09/2011) Generalized headaches (~2008) GI bleed (03/2014) Hearing loss (~2008) Left shoulder strain Opioid use disorder Otitis externa Otitis externa Ovarian cyst (2015) Painful menstruation (2016) Pleurisy Postnasal drip PTSD (post-traumatic stress disorder) (2013) Ulnar neuritis Urinary incontinence (10/2013) Surgical History No history of previous surgery Family History Grandfather Cancer Grandfather Diabetes mellitus Father No problems noted. Mother Hypertension Mental health impairment Brother No problems noted. Sister No problems noted. Sister No problems noted. Sister No problems noted. Grandmother Hypertension Grandmother Mental health impairment Social History Smoking Status: Current some day smoker quit status: considering quitting alcohol intake: current substance use type: marijuana Smoking Status: Current some day smoker tobacco type: vaping alcohol intake frequency: holidays/special occasions only Substance Use Type: marijuana and other Exam Initial Vital Signs Initial Vital Signs: Vital Signs Temperature 98.8 F 01/04/22 04:50 Pulse Rate 93 H 01/04/22 04:50 Respiratory Rate 22 01/04/22 04:50 Blood Pressure 148/81 H 01/04/22 04:50 Pulse Oximetry 97 01/04/22 04:50 Oxygen Delivery Method 01/04/22 04:50 Course Orders Ordered: Discontinued Medications Sodium Chloride (Normal Saline 0.9%) 1,000 mls @ 1,000 mls/hr IV BOLUS ONE Stop: 01/04/22 06:01 Last Infusion: 01/04/22 06:25 Dose: 0 mls/hr Documented By: Admin: 01/04/22 05:13 Dose: 1,000 mls/hr Documented By: FELIPE Ketorolac Tromethamine (Ketorolac 30 Mg/Ml Vial) 15 mg IV NOW ONE Stop: 01/04/22 05:03 Last Admin: 01/04/22 05:14 Dose: 15 mg Documented By: FELIPE MDM - Recheck/Abnormal Lab/Rx Lab Data Result diagrams: 01/04/22 05:15 01/04/22 05:15 Labs: Lab Results 01/04/22 01/04/22 01/04/22 Range/Units 05:15 05:15 05:15 WBC 8.9 (4.5-11.0) X10^3/uL RBC 4.55 (4.0-5.2) X10^6/uL Hgb 14.0 (12.0-16.0) g/dL Hct 40.9 (36-46) % MCV 90.0 (80-100) fL MCH 30.8 (26-34) PG MCHC 34.2 (30-36) % RDW 13.1 (11.6-14.8) % Plt Count 190 (150-400) X10^3/uL Neut % (Auto) 73.7 (50-75) % Lymph % (Auto) 16.6 L (25-40) % [place] % (Auto) 7.4 (3-14) % Eos % (Auto) 1.7 L (2-4) % Baso % (Auto) 0.6 (0-2) % Neut # (Auto) 6600 (1147-9384) /uL Lymph # (Auto) 1500 (5531-0429) /uL [place] # (Auto) 700 (0-900) /uL Eos # (Auto) 100 (0-450) /uL Baso # (Auto) 100 (0-100) /uL Sodium 139 (137-145) mmol/L Potassium 3.7 (3.4-5.1) mmol/L Chloride 105 (98-107) mmol/L Carbon Dioxide 26 (22-32) mmol/L BUN 10 (7-17) mg/dL Creatinine 0.75 (0.52-1.04) mg/dL Estimated GFR > 60 (>60) mL/min BUN/Creatinine Ratio 13.3 (6-22) Glucose 98 (70-100) mg/dL Calcium 8.8 (8.4-10.2) mg/dL Magnesium 2.0 (1.6-2.3) mg/dL Total Bilirubin 0.6 (0.2-1.3) mg/dL AST 24 (14-36) IU/L ALT 13 (<35) IU/L Alkaline Phosphatase 96 (38-126) U/L Total Protein 7.9 (6.3-8.2) g/dL Albumin 4.5 (3.5-5.0) g/dL Globulin 3.4 (1.7-4.1) g/dL Albumin/Globulin Ratio 1.3 (1.0-2.8) SARS-CoV-2 (PCR) (Negative) Influenza A (RT-PCR) (NEGATIVE) Influenza B (RT-PCR) (NEGATIVE) 01/04/22 01/04/22 Range/Units 05:16 05:20 WBC (4.5-11.0) X10^3/uL RBC (4.0-5.2) X10^6/uL Hgb (12.0-16.0) g/dL Hct (36-46) % MCV (80-100) fL MCH (26-34) PG MCHC (30-36) % RDW (11.6-14.8) % Plt Count (150-400) X10^3/uL Neut % (Auto) (50-75) % Lymph % (Auto) (25-40) % [place] % (Auto) (3-14) % Eos % (Auto) (2-4) % Baso % (Auto) (0-2) % Neut # (Auto) (2321-8055) /uL Lymph # (Auto) (6895-1687) /uL [place] # (Auto) (0-900) /uL Eos # (Auto) (0-450) /uL Baso # (Auto) (0-100) /uL Sodium (137-145) mmol/L Potassium (3.4-5.1) mmol/L Chloride (98-107) mmol/L Carbon Dioxide (22-32) mmol/L BUN (7-17) mg/dL Creatinine (0.52-1.04) mg/dL Estimated GFR (>60) mL/min BUN/Creatinine Ratio (6-22) Glucose (70-100) mg/dL Calcium (8.4-10.2) mg/dL Magnesium (1.6-2.3) mg/dL Total Bilirubin (0.2-1.3) mg/dL AST (14-36) IU/L ALT (<35) IU/L Alkaline Phosphatase (38-126) U/L Total Protein (6.3-8.2) g/dL Albumin (3.5-5.0) g/dL Globulin (1.7-4.1) g/dL Albumin/Globulin Ratio (1.0-2.8) SARS-CoV-2 (PCR) Negative (Negative) Influenza A (RT-PCR) Flu a negative (NEGATIVE) Influenza B (RT-PCR) Flu b negative (NEGATIVE) Point of Care Testing Test Results Negative Rapid Strep A Negative Urine Dip Bedside Urine Glucose Negative Bedside Urine Bilirubin ++ 2 Bedside Urine Ketone - Negative Urine Specific [place] 1.025 Bedside Urine Occult Blood - Negative Bedside Urine pH 5.5 Bedside Urine Protein - Negative Bedside Urine Urobilinogen 2+ 4mg Bedside Urine Nitrite + Positive Bedside Urine Leukocytes + 70 Esterase Discharge Plan Departure Patient Disposition: Home Clinical Impression: UTI (urinary tract infection) Prescriptions: No Action lamotrigine 100 mg tablet 100 mg PO DAILY Qty: 30 2RF ibuprofen 800 mg tablet 800 mg PO TID PRN (Reason: pain) Qty: 60 1RF fexofenadine [Kay Allergy] 180 mg tablet 180 mg PO DAILY Qty: 30 1RF naproxen 500 mg tablet 500 mg PO BID Qty: 60 1RF methocarbamol 500 mg tablet 500 mg PO BEDTIME Qty: 30 1RF acetaminophen 500 mg capsule 1,000 mg PO QID PRN (Reason: pain) Qty: 90 1RF ondansetron 4 mg tablet,disintegrating 4 mg PO Q8H PRN (Reason: nausea and vomiting) Qty: 14 0RF cephalexin 500 mg capsule 500 mg PO BID 5 Days Qty: 10 0RF phenazopyridine [Pyridium] 100 mg tablet 100 mg PO TID PRN (Reason: pain) Qty: 7 0RF Referrals: Hunter Singleton DO [Primary Care Provider] - Visit Report Forms: Patient Portal/API
== END 2022-01-04 06:49 | disposition home or self-care (01) ==
PROVIDERS: Emergency Provider Emergency Medicine; PCP Family Medicine
DX: N39.0 Urinary tract infection, site not specified (principal); R51.9 Headache, unspecified; Z20.822 Contact with and (suspected) exposure to COVID-19
CPT/HCPCS: 36415; 80053; 81003; 81025; 83735; 85025; 87502; 87635; 87880; 96361; 96374; 99284; C9803; J1885

== ENCOUNTER → 2023-09-20 07:48 | Outpatient (CLI) | payer OTHER, MEDICAID, SELFPAY ==
--- NOTE | 2023-09-20 07:49 | DI.RAD.S_ITS ---
PROCEDURE: XR LUMBAR SPINE 2-3V INDICATIONS: eval lumbar strain TECHNIQUE: 3 views of the lumbar spine were acquired. COMPARISON: [facility], , L-SPINE 2-3 VIEWS, 12/13/2010, 21:50. FINDINGS: Bones: 5 [id number] vertebrae are present. Slight leftward curvature. No vertebral body compression fractures. No suspicious bony lesions. Mild disc height loss at L1-2, L2-3. Soft tissues: Overlying bowel gas pattern is normal. No suspicious soft tissue calcifications. IMPRESSION: Mild disc height loss at L1-2 and L2-3 Dictated by: Manuel Lynn M.D. on 09/20/2023 at 9:16 Approved by: Manuel Lynn M.D. on 09/20/2023 at 9:16
== END ==
PROVIDERS: PCP Family Medicine; Referring Provider Family Medicine; Visit Provider Family Medicine
DX: S39.012A Strain of muscle, fascia and tendon of lower back, initial encounter (principal); X58.XXXA Exposure to other specified factors, initial encounter
CPT/HCPCS: 72100

== ENCOUNTER → 2023-10-05 08:46 | Outpatient (CLI) | payer OTHER, MEDICAID, SELFPAY ==
[2023-10-05 10:05] LABS: Influenza A - CEPHEID Flu A NEGATIVE (NEGATIVE); Influenza B - CEPHEID Flu B NEGATIVE (NEGATIVE); Respiratory Syncytial Virus Negative (Negative)
[2023-10-05 10:06] LABS: COVID-19 CEPHEID 4-PLEX PCR Negative (Negative)
== END ==
PROVIDERS: PCP Family Medicine; Visit Provider Student in an Organized Health Care Education/Training Program
DX: J02.9 Acute pharyngitis, unspecified (principal)
CPT/HCPCS: 87635; 87400 ×2; 87420; 0241U; 87070

== ENCOUNTER 2023-10-27 18:41 | Emergency (ER) | payer OTHER, MEDICAID, SELFPAY ==
[2023-10-27] VITALS (8 sets, daily range): BP systolic 108–123; BP diastolic 56–78; PULSE 98–112; RESP 16–20; TEMP 36.9; O2SAT 95–98; BMI 27.4
[2023-10-27 21:16] LABS: Strep Grp A by PCR Rapid Negative (Negative)
--- NOTE | 2023-10-27 21:22 | PC.NURSE ---
Addendum entered by Bailey Harris R.N. 10/27/23 22:06: This progress note was entered on maura incorrect patient. Disregard previous note. Original Note: While sitting in bed pt reports that maura palpitations have resolved and her HR ranges from 80-100bpm. Pt then walks to the bathroom with a steady gait. Upon returning to [facility] pt reports palpitations. Denies SOB, CP, dizziness. Upon ambulating pt HR went to 140bpm and returned to 80-90s after 1 minute of rest.
--- NOTE | 2023-10-27 21:33 | ED_ITS ---
HPI - General Adult General Chief complaint: Upper Respiratory Symptoms Stated complaint: posible allergic reaction Time Seen by Provider: 10/27/23 21:33 History of Present Illness HPI narrative: 33-year-old woman presents with severe sore throat loss of voice, headache and feeling that she is getting worse. Her symptoms started at the end of September. Was initially felt to be viral. Diagnosed with a 2nd walk-in visit with pharyngitis and despite negative rapid strep she was treated with penicillin and given a dose of dexamethasone. The dexamethasone seemed to help slightly with the sore throat until today when things began getting significantly worse. She notes that she was gargling and then felt that her throat was tightening significantly. Began having significant hoarseness and pain severe enough that she was having difficulty swallowing. She does not describe significant fevers but has had headaches general malaise. Has not been able to eat or drink much because of the throat pain. No cough, nausea abdominal pain. No flank pain dysuria or diarrhea Related Data Previous Rx's Medication Instructions Recorded ibuprofen 800 mg tablet 800 mg PO TID PRN pain #60 tabs 11/01/19 fexofenadine 180 mg tablet 180 mg PO DAILY #90 tabs 01/22/22 (Kay Allergy) acetaminophen 500 mg capsule 1,000 mg (2 x 500 mg) PO QID PRN 04/30/23 pain #90 caps naproxen 500 mg tablet 500 mg PO BID #120 tabs 04/30/23 methocarbamol 500 mg tablet 500 mg PO BEDTIME #60 tabs 09/01/23 fluoxetine 20 mg capsule 20 mg PO DAILY #30 caps 09/07/23 tizanidine 4 mg capsule 4 mg PO BID PRN muscle spasticity 09/07/23 #20 caps phenol 1.4 % mucosal aerosol spray 4 spray mucous membrane Q2H PRN 10/05/23 (Chloraseptic Throat [place]) sore throat #20 mL indomethacin 25 mg capsule 25 mg PO 3XD PRN lumbar strain #30 10/26/23 caps amoxicillin 875 mg-potassium 1 tab PO BID #14 tabs 10/28/23 clavulanate 125 mg tablet oxycodone 5 mg tablet 5 mg PO Q6H PRN pain #10 tabs 10/28/23 Allergies Allergy/AdvReac Type Severity Reaction Status Date / Time metoclopramide [From Reglan] AdvReac Intermediate restlessnes Verified 10/07/23 07:42 s Review of Systems Review of Systems Narrative: Pertinent positive and negative findings as per HPI Patient History Medical History Lumbar strain Family history of ovarian cancer Family history of breast cancer Well adult exam Acute cystitis Left shoulder strain Cervical strain Postnasal drip Pleurisy Otitis externa Otitis externa Ulnar neuritis Bipolar disorder Opioid use disorder Painful menstruation (2016) Ovarian cyst (2015) Urinary incontinence (10/2013) GI bleed (03/2014) Elbow pain (09/2011) PTSD (post-traumatic stress disorder) (2013) Anxiety (~2012) Generalized headaches (~2008) ADHD (1994) Chronic back pain (12/2010) Hearing loss (~2008) Surgical History No history of previous surgery Family History Grandfather Cancer Grandfather Diabetes mellitus Father No problems noted. Mother Hypertension Mental health impairment Brother No problems noted. Sister No problems noted. Sister No problems noted. Sister No problems noted. Grandmother Hypertension Grandmother Mental health impairment Social History Smoking Status: Current some day smoker quit status: considering quitting alcohol intake: current substance use type: marijuana Smoking Status: Current some day smoker tobacco type: vaping alcohol intake frequency: holidays/special occasions only Substance Use Type: marijuana and other Exam Initial Vital Signs Initial Vital Signs: Vital Signs Temperature 98.5 F 10/27/23 18:47 Pulse Rate 98 H 10/27/23 18:47 Respiratory Rate 16 10/27/23 18:47 Blood Pressure 118/68 10/27/23 18:47 Pulse Oximetry 98 10/27/23 18:47 Oxygen Delivery Method Room Air 10/27/23 18:47 General: Acutely ill-appearing woman significantly hoarse, difficulty swallowing secondary to pain HEENT: Moist mucous membranes, normal sclera with reactive pupils, minimal posterior erythema redness. Certainly no purulent exudate, peritonsillar abscess or tongue swelling Neck: No significant cervical adenopathy. No obvious masses thyroid deviation. Respiratory: Lungs are clear to auscultation, no wheezing no rales no rhonchi. Full and symmetrical air movement Cardiac: Regular rate and rhythm no murmurs no bruits Abdomen: Soft, nontender, good bowel tones, no flank pain Skin: Warm and dry, no rashes Neurologic: Grossly neurologically intact with no obvious asymmetries or abnormalities Extremities: No trauma, well perfused Psych: Cooperative, appropriate insight and affect Course Orders Ordered: ED Orders 10/27/23 21:00 Covid-19 + FLU A/B + RSV - PCR Stat Respiratory Panel (Film Array) Stat Strep Grp A by PCR Rapid Stat Throat Culture Stat 10/27/23 22:06 Complete Blood Count AUTO DIFF Stat Comprehensive Metabolic Panel Stat Lactate (Lactic Acid) Stat 10/27/23 23:16 CT soft tissue neck w con Stat Blood Culture Stat Hydromorphone HCl (Hydromorphone 0.5 Mg Inj) 0.5 mg IV Q15MIN PRN PRN Reason: Pain, Last Admin: 10/27/23 22:17 Dose: 0.5 mg Documented By: OW Discontinued Medications Dexamethasone (Dexamethasone 10 Mg/Ml Vial) 10 mg IV NOW ONE Stop: 10/27/23 21:44 Last Admin: 10/27/23 22:16 Dose: 10 mg Documented By: OW Sodium Chloride (Normal Saline 0.9%) 1,000 mls @ 1,000 mls/hr IV BOLUS ONE Stop: 10/27/23 22:42 Last Infusion: 10/28/23 00:15 Dose: Infused Documented By: Admin: 10/27/23 22:10 Dose: 1,000 mls/hr Documented By: OW Ceftriaxone Sodium 2,000 mg/ (Sodium Chloride) 100 mls @ 200 mls/hr IV NOW ONE Stop: 10/27/23 23:17 Last Infusion: 10/28/23 00:15 Dose: Infused Documented By: Admin: 10/27/23 23:39 Dose: 200 mls/hr Documented By: OW Ketorolac Tromethamine (Ketorolac 30 Mg/Ml Vial) 15 mg IV NOW ONE Stop: 10/27/23 21:44 Last Admin: 10/27/23 22:16 Dose: 15 mg Documented By: OW Vital Signs Vital signs: Vital Signs - 8 hr 10/27/23 18:47 10/27/23 20:24 10/27/23 20:30 Temperature 98.5 F Pulse Rate 98 H 104 H 101 H Respiratory Rate 16 18 20 Blood Pressure 118/68 108/61 Pulse Oximetry 98 97 98 Oxygen Delivery Method Room Air Room Air 10/27/23 20:59 10/27/23 22:22 10/27/23 22:30 Temperature Pulse Rate 109 H 106 H 112 H Respiratory Rate 20 20 18 Blood Pressure 123/78 114/65 115/65 Pulse Oximetry 98 97 95 Oxygen Delivery Method Room Air Room Air Room Air 10/27/23 23:00 10/27/23 23:30 Temperature Pulse Rate 109 H 102 H Respiratory Rate 20 18 Blood Pressure 110/72 111/56 L Pulse Oximetry 96 97 Oxygen Delivery Method Room Air Room Air Medical Decision Making Lab Data 10/27/23 22:06 10/27/23 22:06 Labs: Lab Results 10/27/23 10/27/23 10/27/23 Range/Units 21:00 21:00 21:00 WBC (4.5-11.0) X10^3/uL RBC (4.0-5.2) X10^6/uL Hgb (12.0-16.0) g/dL Hct (36-46) % MCV (80-100) fL MCH (26-34) PG MCHC (30-36) % RDW (11.6-14.8) % Plt Count (150-400) X10^3/uL Neut % (Auto) (50-75) % Lymph % (Auto) (25-40) % [place] % (Auto) (3-14) % Eos % (Auto) (2-4) % Baso % (Auto) (0-2) % Neut # (Auto) (1906-8967) /uL Lymph # (Auto) (6312-3055) /uL [place] # (Auto) (0-900) /uL Eos # (Auto) (0-450) /uL Baso # (Auto) (0-100) /uL Sodium (137-145) mmol/L Potassium (3.4-5.1) mmol/L Chloride (98-107) mmol/L Carbon Dioxide (22-32) mmol/L BUN (7-17) mg/dL Creatinine (0.52-1.04) mg/dL Estimated GFR (>60) mL/min BUN/Creatinine Ratio (6-22) Glucose (70-100) mg/dL Lactate (0.7-2.1) mmol/L Calcium (8.4-10.2) mg/dL Total Bilirubin (0.2-1.3) mg/dL AST (14-36) IU/L ALT (<35) IU/L Alkaline Phosphatase (38-126) U/L Total Protein (6.3-8.2) g/dL Albumin (3.5-5.0) g/dL Globulin (1.7-4.1) g/dL Albumin/Globulin Ratio (1.0-2.8) Chlamy pneumoniae PCR Not detected (Not Detect) Adenovirus (PCR) Not detected (Not Detect) B.parapertussis DNA PCR Not detected (Not Detecte) Coronavirus OC43 (PCR) Not detected (Not Detect) Coronavirus HKU1 (PCR) Not detected (Not Detect) Coronavirus 229E (PCR) Not detected (Not Detect) SARS-CoV-2 (PCR) Negative Not detected (Negative) Coronavirus NL63 (PCR) Not detected (Not Detect) Human Metapneumovir PCR Not detected (Not Detect) Influenza A (RT-PCR) Flu a negative (NEGATIVE) Influenza Type A (PCR) Not detected (Not Detect) Influenza B (RT-PCR) Flu b negative (NEGATIVE) Influenza Type B (PCR) Not detected (Not Detect) M. pneumoniae (PCR) Not detected (Not Detect) Parainfluenza 1 (PCR) Not detected (Not Detect) Parainfluenza 2 (PCR) Not detected (Not Detect) Parainfluenza 3 (PCR) Not detected (Not Detect) Parainfluenza 4 (PCR) Not detected (Not Detect) RSV (PCR) Negative Not detected (Negative) Entero/Rhino (PCR) Not detected (Not Detect) Group A Strep (PCR) Negative (Negative) 10/27/23 Range/Units 22:06 WBC 19.6 H (4.5-11.0) X10^3/uL RBC 4.02 (4.0-5.2) X10^6/uL Hgb 12.2 (12.0-16.0) g/dL Hct 35.9 L (36-46) % MCV 89.3 (80-100) fL MCH 30.4 (26-34) PG MCHC 34.0 (30-36) % RDW 13.6 (11.6-14.8) % Plt Count 215 (150-400) X10^3/uL Neut % (Auto) 91.4 H (50-75) % Lymph % (Auto) 4.0 L (25-40) % [place] % (Auto) 3.9 (3-14) % Eos % (Auto) 0.1 L (2-4) % Baso % (Auto) 0.6 (0-2) % Neut # (Auto) 79085 H (6289-6127) /uL Lymph # (Auto) 800 L (4575-1868) /uL [place] # (Auto) 800 (0-900) /uL Eos # (Auto) 0 (0-450) /uL Baso # (Auto) 100 (0-100) /uL Sodium 135 L (137-145) mmol/L Potassium 4.3 (3.4-5.1) mmol/L Chloride 106 (98-107) mmol/L Carbon Dioxide 23 (22-32) mmol/L BUN 19 H (7-17) mg/dL Creatinine 0.61 (0.52-1.04) mg/dL Estimated GFR > 60 (>60) mL/min BUN/Creatinine Ratio 31.1 H (6-22) Glucose 119 H (70-100) mg/dL Lactate 0.8 (0.7-2.1) mmol/L Calcium 9.5 (8.4-10.2) mg/dL Total Bilirubin 0.9 (0.2-1.3) mg/dL AST 30 (14-36) IU/L ALT 17 (<35) IU/L Alkaline Phosphatase 112 (38-126) U/L Total Protein 7.5 (6.3-8.2) g/dL Albumin 4.6 (3.5-5.0) g/dL Globulin 2.9 (1.7-4.1) g/dL Albumin/Globulin Ratio 1.6 (1.0-2.8) Chlamy pneumoniae PCR (Not Detect) Adenovirus (PCR) (Not Detect) B.parapertussis DNA PCR (Not Detecte) Coronavirus OC43 (PCR) (Not Detect) Coronavirus HKU1 (PCR) (Not Detect) Coronavirus 229E (PCR) (Not Detect) SARS-CoV-2 (PCR) (Negative) Coronavirus NL63 (PCR) (Not Detect) Human Metapneumovir PCR (Not Detect) Influenza A (RT-PCR) (NEGATIVE) Influenza Type A (PCR) (Not Detect) Influenza B (RT-PCR) (NEGATIVE) Influenza Type B (PCR) (Not Detect) M. pneumoniae (PCR) (Not Detect) Parainfluenza 1 (PCR) (Not Detect) Parainfluenza 2 (PCR) (Not Detect) Parainfluenza 3 (PCR) (Not Detect) Parainfluenza 4 (PCR) (Not Detect) RSV (PCR) (Negative) Entero/Rhino (PCR) (Not Detect) Group A Strep (PCR) (Negative) Imaging Data Soft tissue neck CT: Radiologist's Impression: PROCEDURE: CT SOFT TISSUE NECK W CON INDICATIONS: throat pain, leukocytosis TECHNIQUE: After the administration of intravenous contrast, 3.0 mm axial sections acquired from the sella to the aortic arch. Additional oblique axial 3.0 mm sections acquired through the pharynx. 3 mm thick coronal and sagittal reformats were generated. For radiation dose reduction, the following was used: automated exposure control. COMPARISON: None. FINDINGS: Image quality: Excellent. Lymph nodes: Enlarged left 2A lymph node measuring 1.7 x 1.4 cm. Few additional mildly prominent left cervical lymph nodes. Vessels: Visualized vasculature appears patent. Neck spaces: The oropharynx, nasopharynx, and pharynx demonstrate no mucosal lesions. The vocal cords, false vocal cords, pyriform sinuses, epiglottis, vallecula, and tongue base all appear normal. Extramucosal spaces appear unremarkable. Glands: The parotid and submandibular glands appear normal. Thyroid gland is unremarkable. Miscellaneous: Visualized brain and orbits appear normal. Lung apices appear clear. Superficial soft tissues appear normal. Bones: No suspicious bony lesions. Visualized sinuses and mastoids appear unremarkable. IMPRESSION: No cause for patient's pain is identified. Prominent and mildly enlarged left cervical lymph nodes with the largest measuring 1.7 x 1.4 cm. While findings may be reactive, other etiologies including malignancy are not definitively excluded and clinical correlation and follow-up is recommended. Dictated by: Martínez Reeder M.D. on 10/27/2023 at 23:53 MDM Narrative Medical decision making narrative: CC: Sore throat getting worse Complicating co-morbidities: Has completed course of penicillin and had a dose of dexamethasone and symptoms worsening today now having difficulty talking eating and drinking, quite hoarse Data collected from: patient Medical records reviewed: Urgent care notes from October 04 and with similar complaints are reviewed Differential considered: Viral syndrome, peritonsillar abscess, epiglottitis, pneumonia Exam documented above, pertinent findings include: Patient appears to generally feel unwell but airway is protected, she is quite hoarse, lungs are clear no other obvious findings on physical exam Lab Test results independently reviewed as above. Pertinent findings: CBC shows a white count of 19.6 with 91.4 neutrophils. Given the fact that I thought this was a viral syndrome this is unusual in certainly deserves further evaluation. Blood cultures and lactic acid are ordered. Chemistries are reassuring no significant abnormalities appreciated Respiratory panel is unremarkable Imaging studies independently reviewed: Given the acute throat pain as well as the very hoarse voice imaging of the soft tissues neck including the epiglottis are obtained. CT scan does not suggest deeper abscess or epiglottitis Treatments: IV fluids, half a mg of Dilaudid, dexamethasone, IV ceftriaxone Re-evaluations: Patient is feeling better after the fluids steroids and pain medication Discussion: 33-year-old woman with upper respiratory infection now going on 2 weeks today with acutely worsening pain and loss of voice. Significant leukocytosis with left shift without any obvious abscess and negative rapid strep testing. Given the overall pain and leukocytosis a.m. concerned that this is a bacterial infection. She is given ceftriaxone in the emergency department. We will have her complete 7 days of Augmentin. I have also given her a short course of oxycodone to use for pain control given the severity of her symptoms. Encouraged hydration, she has Naprosyn that she has been prescribed she can increase to b.i.d. dosing rather than just nightly dosing. Have encouraged her to return if symptoms are not improving. Discharge Plan Departure Patient Disposition: Home Clinical Impression: Acute bacterial pharyngitis Instructions: DI for Strep Throat Activity Restrictions/Additional Instructions: Thank you for coming in today While your rapid strep test was negative, your blood count suggested high white blood cell number which typically goes along with a bacterial infection. I did do a CT scan of your neck to make sure that we were not missing deeper abscess or other concerning findings. That is CT scan showed a swollen lymph node consistent with your infection but no other findings. I am going to suggest 7 days of Augmentin to start tomorrow after the 1st dose of IV antibiotics were given in the emergency department. It is important that you stay well hydrated. I would recommend increasing your Naprosyn 2 morning and night to help with both the pain and inflammation. You were given steroids in the emergency department to help with pain and inflammation as well. I am going to give you a short prescription of oxycodone to use for severe pain. This is a narcotic, can be addictive and can cause constipation If you find that you are getting worse or develop any new symptoms, please feel free to return to the emergency department for further evaluation. Prescriptions: New oxycodone 5 mg tablet 5 mg PO Q6H PRN (Reason: pain) Qty: 10 0RF amoxicillin-pot clavulanate 875-125 mg tablet 1 tab PO BID Qty: 14 0RF No Action Chloraseptic Throat [place] 1.4 % aerosol,spray 4 spray mucous membrane Q2H PRN (Reason: sore throat) Qty: 20 1RF methocarbamol 500 mg tablet 500 mg PO BEDTIME Qty: 60 1RF indomethacin 25 mg capsule 25 mg PO 3XD PRN (Reason: lumbar strain) Qty: 30 0RF fexofenadine [Kay Allergy] 180 mg tablet 180 mg PO DAILY Qty: 90 1RF tizanidine 4 mg capsule 4 mg PO BID PRN (Reason: muscle spasticity) Qty: 20 1RF fluoxetine 20 mg capsule 20 mg PO DAILY Qty: 30 2RF Rx Instructions: start taking fluoxetine 20 mg ibuprofen 800 mg tablet 800 mg PO TID PRN (Reason: pain) Qty: 60 1RF naproxen 500 mg tablet 500 mg PO BID Qty: 120 1RF acetaminophen 500 mg capsule 1,000 mg PO QID PRN (Reason: pain) Qty: 90 1RF Referrals: Hunter Singleton, [Primary Care Provider] - Stand Alone Forms: Patient Portal/API, Work Release Note
[2023-10-27 21:47] LABS: Influenza A - CEPHEID Flu A NEGATIVE (NEGATIVE); Influenza B - CEPHEID Flu B NEGATIVE (NEGATIVE); Respiratory Syncytial Virus Negative (Negative)
[2023-10-27 21:54] LABS: COVID-19 CEPHEID 4-PLEX PCR Negative (Negative)
[2023-10-27] MEDS: SODIUM CHLORIDE 0.9% 1,000 ML 1000 ML IV (22:10)
[2023-10-27] MEDS: KETOROLAC 30 MG/ML VIAL 15 MG IV (22:16)
[2023-10-27] MEDS: DEXAMETHASONE 10 MG/ML VIAL IV (22:16)
[2023-10-27] MEDS: HYDROMORPHONE 0.5 MG INJ IV (22:17)
[2023-10-27] MEDS: ONDANSETRON 4 MG/2 ML INJ (22:29)
[2023-10-27 23:05] LABS: Add Manual Diff / Slide Review NO; Basophils Absolute Auto 100 /uL (0-100); Basophils Percent Auto 0.6 % (0-2); Eosinophils Absolute Auto 0 /uL (0-450); Eosinophils Percent Auto 0.1 % (2-4); Hematocrit 35.9 % (36-46); Hemoglobin 12.2 g/dL (12.0-16.0); Lymphocytes Absolute Auto 800 /uL (1100-4500); Mean Corpuscular Hemoglobin 30.4 PG (26-34); Mean Corpuscular Volume 89.3 fL (80-100); Monocytes Absolute Auto 800 /uL (0-900); Monocytes Percent Auto 3.9 % (3-14); Neutrophils Absolute Auto 17900 /uL (1500-7000); Neutrophils Percent Auto 91.4 % (50-75); Platelet Count 215 X10^3/uL (150-400); Red Blood Cell Count 4.02 X10^6/uL (4.0-5.2); Red Cell Distribution Width 13.6 % (11.6-14.8); White Blood Cell Count 19.6 X10^3/uL (4.5-11.0)
[2023-10-27 23:06] LABS: Alanine Aminotransferase 17 IU/L (<35); Albumin 4.6 g/dL (3.5-5.0); Albumin Globulin Ratio 1.6 (1.0-2.8); BUN Creatinine Ratio 31.1 (6-22); Bilirubin Total 0.9 mg/dL (0.2-1.3); Blood Urea Nitrogen 19 mg/dL (7-17); Calcium 9.5 mg/dL (8.4-10.2); Carbon Dioxide 23 mmol/L (22-32); Chloride 106 mmol/L (98-107); Estimated Glomerular Filt Rate > 60 mL/min (>60); Globulin 2.9 g/dL (1.7-4.1); Glucose 119 mg/dL (70-100); Sodium 135 mmol/L (137-145); Total Protein 7.5 g/dL (6.3-8.2)
[2023-10-27 23:08] LABS: Alkaline Phosphatase 112 U/L (38-126); Aspartate Aminotransferase 30 IU/L (14-36); HEMOLYSIS 86 (0-50); Potassium 4.3 mmol/L (3.4-5.1)
--- NOTE | 2023-10-27 23:16 | DI.CT.S_ITS ---
PROCEDURE: CT SOFT TISSUE NECK W CON INDICATIONS: throat pain, leukocytosis TECHNIQUE: After the administration of intravenous contrast, 3.0 mm axial sections acquired from the sella to the aortic arch. Additional oblique axial 3.0 mm sections acquired through the pharynx. 3 mm thick coronal and sagittal reformats were generated. For radiation dose reduction, the following was used: automated exposure control. COMPARISON: None. FINDINGS: Image quality: Excellent. Lymph nodes: Enlarged left 2A lymph node measuring 1.7 x 1.4 cm. Few additional mildly prominent left cervical lymph nodes. Vessels: Visualized vasculature appears patent. Neck spaces: The oropharynx, nasopharynx, and pharynx demonstrate no mucosal lesions. The vocal cords, false vocal cords, pyriform sinuses, epiglottis, vallecula, and tongue base all appear normal. Extramucosal spaces appear unremarkable. Glands: The parotid and submandibular glands appear normal. Thyroid gland is unremarkable. Miscellaneous: Visualized brain and orbits appear normal. Lung apices appear clear. Superficial soft tissues appear normal. Bones: No suspicious bony lesions. Visualized sinuses and mastoids appear unremarkable. IMPRESSION: No cause for patient's pain is identified. Prominent and mildly enlarged left cervical lymph nodes with the largest measuring 1.7 x 1.4 cm. While findings may be reactive, other etiologies including malignancy are not definitively excluded and clinical correlation and follow-up is recommended. Dictated by: Martínez Reeder M.D. on 10/27/2023 at 23:53 Approved by: Martínez Reeder M.D. on 10/27/2023 at 23:57
[2023-10-27 23:27] LABS: Adenovirus Not Detected (Not Detect); B. parapertussis Not Detected (Not Detecte); Bordetella pertussis Not Detected (Not Detect); Chlamydophila pneumoniae Not Detected (Not Detect); Coronavirus 229E Not Detected (Not Detect); Coronavirus HKU1 Not Detected (Not Detect); Coronavirus NL 63 Not Detected (Not Detect); Coronavirus OC43 Not Detected (Not Detect); Human Metapneumovirus Not Detected (Not Detect); Human Rhinovirus/Enterovirus Not Detected (Not Detect); Influenza A Not Detected (Not Detect); Influenza B Not Detected (Not Detect); Mycoplasma pneumoniae Not Detected (Not Detect); Parainfluenza Virus 1 Not Detected (Not Detect); Parainfluenza Virus 2 Not Detected (Not Detect); Parainfluenza Virus 3 Not Detected (Not Detect); Parainfluenza Virus 4 Not Detected (Not Detect); Respiratory Syncytial Virus Not Detected (Not Detect); SARS- CoV-2 Not Detected (Not Detecte)
[2023-10-27 23:28] LABS: Lactate (Lactic Acid) 0.8 mmol/L (0.7-2.1)
[2023-10-27] MEDS: cefTRIAXone 2,000 MG in SODIUM CHLORIDE 0.9% 100 ML 200 MG IV (23:39)
[2023-10-28 00:14] VITALS: BP 113/65; PULSE 99; RESP 18; O2SAT 98
[2023-10-28 00:30] VITALS: BP 102/54; PULSE 97; RESP 20; TEMP 36.8; O2SAT 98
== END 2023-10-28 00:51 | disposition home or self-care (01) ==
PROVIDERS: Emergency Provider Emergency Medicine; PCP Family Medicine
DX: J02.8 Acute pharyngitis due to other specified organisms (principal); Z20.822 Contact with and (suspected) exposure to COVID-19
CPT/HCPCS: 87635; 0241U; 36415; 70491; 80053; 83605; 85025; 87070; 87633; 87651; 96365; 96375; 99284; J0696; J1100; J1170; J1885; J2405

== ENCOUNTER 2024-08-29 08:12 | Emergency (ER) | payer SELFPAY ==
[2024-08-29 08:20] VITALS: BP 128/79; PULSE 116; O2SAT 100
[2024-08-29 08:23] VITALS: BP 128/79; PULSE 100; RESP 18; TEMP 36.7; O2SAT 98; BMI 24.2
[2024-08-29 08:30] VITALS: PULSE 103; O2SAT 99
--- NOTE | 2024-08-29 08:49 | ED_ITS ---
HPI - Eye Problem General Chief complaint: Eye Problems Stated complaint: L eye swelling/pain Time Seen by Provider: 08/29/24 08:47 Source: patient Mode of arrival: Ambulatory History of Present Illness HPI Narrative: Patient 33-year-old healthy female presenting today with left eye pain and swelling. Over the last few days he is done warm compresses hot showers thinking it was a stye. But still having some swelling in her eye. Denies any drainage. Does not wear contacts or glasses. No fever or chills. Related Data Previous Rx's Medication Instructions Recorded fexofenadine 180 mg tablet 180 mg PO DAILY #90 tabs 01/22/22 (Kay Allergy) acetaminophen 500 mg capsule 1,000 mg (2 x 500 mg) PO QID PRN 04/30/23 pain #90 caps tizanidine 4 mg capsule 4 mg PO BID PRN muscle spasticity 09/07/23 #20 caps phenol 1.4 % mucosal aerosol spray 4 spray mucous membrane Q2H PRN 10/05/23 (Chloraseptic Throat [place]) sore throat #20 mL amoxicillin 875 mg-potassium 1 tab PO BID #14 tabs 10/28/23 clavulanate 125 mg tablet oxycodone 5 mg tablet 5 mg PO Q6H PRN pain #10 tabs 10/28/23 naproxen 500 mg tablet 500 mg PO BID #180 tabs 01/12/24 methocarbamol 500 mg tablet 500 mg PO BEDTIME #60 tabs 01/15/24 fluoxetine 20 mg capsule 20 mg PO DAILY #30 caps 02/07/24 erythromycin 5 mg/gram (0.5 %) eye 0.5 inch EYE-LEFT BEDTIME #3.5 08/29/24 ointment grams gentamicin 0.3 % eye drops 2 drp EYE-LEFT Q4HRWA #5 mL 08/29/24 Allergies Allergy/AdvReac Type Severity Reaction Status Date / Time metoclopramide [From Reglan] AdvReac Intermediate restlessnes Verified 11/01/23 11:45 s Patient History Medical History Lumbar strain Family history of ovarian cancer Family history of breast cancer Well adult exam Acute cystitis Left shoulder strain Cervical strain Postnasal drip Pleurisy Otitis externa Otitis externa Ulnar neuritis Bipolar disorder Opioid use disorder Painful menstruation (2017) Ovarian cyst (2015) Urinary incontinence (10/2013) GI bleed (03/2014) Elbow pain (09/2011) PTSD (post-traumatic stress disorder) (2013) Anxiety (~2012) Generalized headaches (~2008) ADHD (1994) Chronic back pain (12/2010) Hearing loss (~2008) Surgical History No history of previous surgery Family History Grandfather Cancer Grandfather Diabetes mellitus Father No problems noted. Mother Hypertension Mental health impairment Brother No problems noted. Sister No problems noted. Sister No problems noted. Sister No problems noted. Grandmother Hypertension Grandmother Mental health impairment Social History Smoking Status: Current some day smoker quit status: considering quitting alcohol intake: current substance use type: marijuana Smoking Status: Current some day smoker tobacco type: cigarettes and vaping alcohol intake frequency: holidays/special occasions only Exam Initial Vital Signs Initial Vital Signs: Vital Signs Pulse Rate 116 H 08/29/24 08:20 Blood Pressure 128/79 08/29/24 08:20 Pulse Oximetry 100 08/29/24 08:20 GENERAL: Well-appearing, well-nourished and in no acute distress. Left eye was treated with proparacaine, stained with fluorescein. No dye uptake. No foreign body. CARDIOVASCULAR: peripheral pulses in tact, cap refill <2 sec RESPIRATORY: No respiratory distress, speaks in full sentences without difficulty EXTREMITIES: Normal range of motion, no clubbing or edema. Neurovascularly intact NEUROLOGICAL: Cranial nerves II through XII grossly intact. Normal gait and speech. SKIN: Warm, dry, no petechiae, no rashes or lesions. Course Vital Signs Vital signs: Vital Signs - 8 hr 08/29/24 08:20 08/29/24 08:20 08/29/24 08:23 Temperature 98.0 F Pulse Rate 116 H 100 H Respiratory Rate 18 Blood Pressure 128/79 128/79 Pulse Oximetry 100 98 Oxygen Delivery Method Room Air 08/29/24 08:30 Temperature Pulse Rate 103 H Respiratory Rate Blood Pressure Pulse Oximetry 99 Oxygen Delivery Method MDM - Eye Problem MDM Narrative Medical decision making narrative: Patient healthy 33-year-old female presenting today left upper lid swelling. It has been ongoing for the last couple of days. No significant periorbital erythema to suggest preseptal or septal cellulitis. No significant conjunctiva to suggest conjunctivitis. I do suspect more of a stye. I was examined under Wood's lamp with fluorescein without significant dye uptake Discharge Plan Departure Patient Disposition: Home Clinical Impression: Hordeolum Instructions: Hordeolum Activity Restrictions/Additional Instructions: *You have been diagnosed with stye *What to do: At this time continue warm compresses will add an antibiotic. *Continue to take medications as directed Gentamicin drops or ointment every 4 hours while awake Erythromycin ointment at night if needed Motrin 600 mg every 6 hours for [id number] Tylenol 1000 mg every 6 hours for [id number] pain *Follow up with your primary care provider in 2-3 days or call [phone] *Return to ER if you should have increasing redness swelling pain [or] any new, worsening or concerning symptoms Prescriptions: New gentamicin 0.3 % drops 2 drp EYE-LEFT Q4HRWA Qty: 5 0RF erythromycin 5 mg/gram (0.5 %) ointment 0.5 inch EYE-LEFT BEDTIME Qty: 3.5 0RF No Action Chloraseptic Throat [place] 1.4 % aerosol,spray 4 spray mucous membrane Q2H PRN (Reason: sore throat) Qty: 20 1RF naproxen 500 mg tablet 500 mg PO BID Qty: 180 0RF methocarbamol 500 mg tablet 500 mg PO BEDTIME Qty: 60 1RF fluoxetine 20 mg capsule 20 mg PO DAILY Qty: 30 1RF Rx Instructions: start taking fluoxetine 20 mg fexofenadine [Kay Allergy] 180 mg tablet 180 mg PO DAILY Qty: 90 1RF tizanidine 4 mg capsule 4 mg PO BID PRN (Reason: muscle spasticity) Qty: 20 1RF acetaminophen 500 mg capsule 1,000 mg PO QID PRN (Reason: pain) Qty: 90 1RF oxycodone 5 mg tablet 5 mg PO Q6H PRN (Reason: pain) Qty: 10 0RF amoxicillin-pot clavulanate 875-125 mg tablet 1 tab PO BID Qty: 14 0RF Referrals: Hunter Singleton, [Primary Care Provider] - Stand Alone Forms: Patient Portal/API/Survey
[2024-08-29] MEDS: PROPARACAINE 0.5% OPHTH SOL 1 DROPS EYE-BOTH (09:14)
[2024-08-29] MEDS: FLUORESCEIN 1 MG STRIP EYE-BOTH (09:15)
[2024-08-29 09:30] VITALS: PULSE 78; RESP 18; O2SAT 99
== END 2024-08-29 09:31 | disposition home or self-care (01) ==
PROVIDERS: Emergency Provider Emergency Medicine; PCP Family Medicine
DX: H00.014 Hordeolum externum left upper eyelid (principal)
CPT/HCPCS: 99282

== ENCOUNTER 2025-05-10 21:52 | Emergency (ER) | payer SELFPAY ==
[2025-05-10 21:59] VITALS: BP 111/68; PULSE 83; RESP 18; TEMP 36.7; O2SAT 96; BMI 26.6
--- NOTE | 2025-05-10 22:04 | DI.RAD.S_ITS ---
PROCEDURE: XR FOOT RT MIN 3V INDICATIONS: nontraumatic pain TECHNIQUE: 3 views of the foot were acquired. COMPARISON: None. FINDINGS: Bones: No fractures or dislocations. No suspicious bony lesions. Joint spacing is maintained. Soft tissues: No tibiotalar joint effusion. Achilles tendon appears normal. IMPRESSION: Normal examination. Dictated by: Diogo Parks M.D. on 05/10/2025 at 22:57 Approved by: Diogo Parks M.D. on 05/10/2025 at 22:58
[2025-05-11 00:50] VITALS: O2SAT 99
[2025-05-11 00:51] VITALS: BP 118/71; PULSE 69; O2SAT 97
[2025-05-11 01:00] VITALS: PULSE 76; O2SAT 96
--- NOTE | 2025-05-11 01:17 | ED_ITS ---
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 Now she feels like her middle toes going to bed numb. She denies any trauma to the area but she does admit to wearing new inserts and shoes recently. Related Data Previous Rx's ?Medication ?Instructions ?Recorded fexofenadine 180 mg tablet 180 mg PO DAILY #90 tabs ([facility]) acetaminophen 500 mg capsule 1,000 mg (2 x 500 mg) PO QID PRN 04/30/23 pain #90 caps tizanidine 4 mg capsule 4 mg PO BID PRN muscle spast icity 09/07/23 #20 caps phenol 1.4 % mucosal aerosol spray 4 spray mucous memb demetris Q2H PRN 10/05/23 (Chloraseptic Throat [place]) sore throat #20 mL amoxicillin 875 mg-potassium 1 tab PO BID #14 tabs clavulanate 125 mg tablet oxycodone 5 mg tablet 5 mg PO Q6H PRN pain #10 tab s 10/28/23 naproxen 500 mg tablet 500 mg PO BID #180 tabs 0710/02 methocarbamol 500 mg tablet 500 mg PO BEDTIME #60 tabs 01/15/24 fluoxetine 20 mg capsule 20 mg PO DAILY #30 caps 01/10 04/04 erythromycin 5 mg/gram (0.5 %) eye 0.5 inch EYE-LEFT B EDTIME #3.5 08/29/24 ointment grams gentamicin 0.3 % eye drops 2 drp EYE-LEFT Q4HRWA #5 mL 08/29/24 Allergies Allergy/AdvReac Type Severity Reaction Status Date / Time metoclopramide (From Reglan) AdvReac Intermediate restlessnes Verified 05/10/25 21:59 s Review of Systems Review of Systems ROS Unobtainable: All systems reviewed & are unremarkable except as noted in HPI and below Patient History Medical History Lumbar strain Family history of ovarian cancer Family history of breast cancer Well adult exam Acute cystitis Left shoulder strain Cervical strain Postnasal drip Pleurisy Otitis externa Otitis externa Ulnar neuritis Bipolar disorder Opioid use disorder Painful menstruation (2016) Ovarian cyst (2015) Urinary incontinence (10/2013) GI bleed (03/2014) Elbow pain (09/2011) PTSD (post-traumatic stress disorder) (2013) Anxiety (~2012) Generalized headaches (~2008) ADHD (1994) Chronic back pain (12/2010) Hearing loss (~2008) Surgical History No history of previous surgery Family History Grandfather Cancer Grandfather Diabetes mellitus Father No problems noted. Mother Hypertension Mental health impairment Brother No problems noted. Sister No problems noted. Sister No problems noted. Sister No problems noted. Grandmother Hypertension Grandmother Mental health impairment Social History Smoking Status: Current every day smoker quit status: considering quitting alcohol intake: current substance use type: marijuana Smoking Status: Current every day smoker tobacco type: cigarettes alcohol intake frequency: holidays/special occasions only Exam Narrative Exam Narrative: General: Patient appears to be in no acute distress, acting appropriately Head: normocephalic, atraumatic, HEENT: Pupils equal round reactive, eyes tracking well, neck supple, no JVD Heart: regular rate and rhythm, no murmurs, rubs, or gallops heard Lungs: clear to auscultation, no adventitious sounds Abdomen: soft , nontender, nondistended, positive bowel sounds Neurological: no focal neurological signs, moving all extremities well, alert and oriented x3, Psych: good judgment ,good insight, mood is normal. Initial Vital Signs Initial Vital Signs: Vital Signs Temperature 98.1 F 05/10/25 21:59 Pulse Rate 83 05/10/25 21:59 Respiratory Rate 18 05/10/25 21:59 Blood Pressure 111/68 05/10/25 21:59 Pulse Oximetry 96 05/10/25 21:59 Oxygen Delivery Method Room Air 05/10/25 21:59 Course Orders Ordered: ED Orders 05/10/25 22:04 XR foot RT min 3V Stat Discontinued Medications Hydrocodone Bitart/Acetaminophen (Hydrocodone/Acet 5/325 Prepack) 1 bottle MISC DIRECTED ONE Stop: 05/11/25 01:23 Last Admin: 05/11/25 01:32 Dose: 1 bottle Documented By: FELIPE Vital Signs Vital signs: Vital Signs - 8 hr 05/10/25 21:59 05/11/25 00:50 05/11/25 00:51 Temperature 98.1 F Pulse Rate 83 69 Respiratory Rate 18 Blood Pressure 111/68 Pulse Oximetry 96 99 97 Oxygen Delivery Method Room Air 05/11/25 00:51 05/11/25 01:00 Temperature Pulse Rate 76 Respiratory Rate Blood Pressure 118/71 Pulse Oximetry 96 Oxygen Delivery Method MDM - Extremity (Nontraumatic) Imaging Data Extremity x-ray #1: Radiologist's Impression: Normal examination. [facility] Narrative Medical decision making narrative: 34-year-old female with pain on the plantar aspect of her right foot. Foot x-ray did not show any acute dislocation or fracture. Me more likely dealing with a plantar fasciitis. Demonstrates some exercises that the patient can attempt. Patient given a postoperative shoe as well. Follow up with PCP or can come back here if worsening symptoms. Discharge Plan Departure Patient Disposition: Home Clinical Impression: Plantar fasciitis of right foot Instructions: Plantar Fasciitis Activity Restrictions/Additional Instructions: Take meds as prescribed for pain. Try plantar fasciitis exercises at home. Can try stretching using a shirt while sitting and flex the foot as much possible. Can try flexing the foot against a wall. Can try rolling the foot over a tennis ball. Follow up if symptoms worsen either here or PCP. Prescriptions: No Action Chloraseptic Throat [place] 1.4 % aerosol,spray 4 spray mucous membrane Q2H PRN (Reason: sore throat) Qty: 20 1RF naproxen 500 mg tablet 500 mg PO BID Qty: 180 0RF methocarbamol 500 mg tablet 500 mg PO BEDTIME Qty: 60 1RF fluoxetine 20 mg capsule 20 mg PO DAILY Qty: 30 1RF Rx Instructions: start taking fluoxetine 20 mg fexofenadine [[facility]] 180 mg tablet 180 mg PO DAILY Qty: 90 1RF tizanidine 4 mg capsule 4 mg PO BID PRN (Reason: muscle spasticity) Qty: 20 1RF acetaminophen 500 mg capsule 1,000 mg PO QID PRN (Reason: pain) Qty: 90 1RF oxycodone 5 mg tablet 5 mg PO Q6H PRN (Reason: pain) Qty: 10 0RF amoxicillin-pot clavulanate 875-125 mg tablet 1 tab PO BID Qty: 14 0RF gentamicin 0.3 % drops 2 drp EYE-LEFT Q4HRWA Qty: 5 0RF erythromycin 5 mg/gram (0.5 %) ointment 0.5 inch EYE-LEFT BEDTIME Qty: 3.5 0RF Referrals: Hunter Singleton, [Primary Care Provider, Family Practice] Stand Alone Forms: Patient Portal/API, Work Release Note
== END 2025-05-11 01:36 | disposition home or self-care (01) ==
PROVIDERS: Emergency Provider Family Medicine; PCP Family Medicine
DX: M72.2 Plantar fascial fibromatosis (principal)
CPT/HCPCS: 73630; 99281; 99283